=== PATIENT | female | born 1940 | race Caucasian/White ===

== ENCOUNTER 2016-11-27 16:04 | Observation (INO) | payer OTHER ==
[2016-11-27] VITALS (7 sets, daily range): BP systolic 147–177; BP diastolic 70–78; PULSE 53–76; RESP 18–20; TEMP 98–98.1; O2SAT 95–98
[~2016-11-27 16:04] MED LIST: ASPI81TA82 PO; B12-1CHW CHEW; FENO50TA PO; FLUO0.012 TOP; GLIM1 PO; HYDR-2768 PO; LEVO75TA3 PO; LOVA40TA PO; METF-324 PO; METO25 PO; NORV5TAB PO; POTA-243 PO; PROT40TA PO; TAB-TAB PO; TELM40 PO; TIMO0.5S6 LEFT EYE; VERA240CR PO
[2016-11-27] MEDS ORDERED: NITROGLYCERIN 2% OINT 1 GM PACKET TOP ONE (16:30)
[2016-11-27] MEDS ORDERED: ASPIRIN 325 MG TAB PO ONE (16:30)
[2016-11-27] MEDS ORDERED: SODIUM CHLORIDE 0.9% FLUSH 5 ML FLUSH IVF PRN (16:30)
--- NOTE | 2016-11-27 16:40 | PD ---
HPI Chief Complaint: Chest Pain Time Seen by Provider: 16:17 Travel History International Travel<30 days: No Contact w/Intl Traveler<30days: No Traveled to known affect area: No History of Present Illness HPI 76-year-old female with history of CAD and stents, multiple medical issues, presents to the ER today with substernal chest pains which she describes as a pressure-like 7 out of 10 pain which is constant in nature. She denies any nausea, shortness of breath, abdominal pains, or any other symptoms. Modifying Factors: None Associated Signs & Symptoms: Chest pains Risk Factors: CAD with stents PFSH Past Medical History Hx Anticoagulant Therapy: Yes (ASA) Arthritis: Yes Asthma: No Blood Disorders: No Anxiety: No Depression: Yes Heart Rhythm Problems: No Cancer: No Cardiac Catheterization: Yes (1 STENT) Cardiovascular Problems: Yes High Cholesterol: Yes Chest Pain: Yes Congestive Heart Failure: No COPD: No Diabetes: Yes Patient Takes Glucophage: Yes Diminished Hearing: Yes ([place]) Endocrine: Yes Gastrointestinal Disorders: Yes (GERD, HX ULCERS) GERD: Yes Glaucoma: Yes Genitourinary: No Hepatitis: No Hiatal Hernia: No Hypertension: Yes Immune Disorder: No Implanted Vascular Access Dvce: No Medical other: No Musculoskeletal: Yes (ARTHRITIS HANDS feet) Neurologic: No Psychiatric: No Reproductive: No Respiratory: Yes (C PAP TO SLEEP) Immunizations Current: Yes Myocardial Infarction: No Sleep Apnea: No Thyroid Disease: Yes (HYPOTHYROID) Ulcer: Yes (DECEMBER 2006) ?: Not Menopausal: Yes : 3 Para: 3 Past Surgical History Abdominal Surgery: Yes (BLEEDING ULCERS) AICD: No Appendectomy: No Body Medical Devices: CARDIAC STENT Cardiac Surgery: Yes (AAA STENTING, CAD WITH STENTS ) Cholecystectomy: No Ear Surgery: No Endocrine Surgery: No Eye Surgery: Yes (ALENA cataract ext) Genitourinary Surgery: Yes Gynecologic Surgery: Yes (hysterectomy) Hysterectomy: Yes Joint Replacement: No Neurologic Surgery: No Oral Surgery: Yes (TONSILLECTOMY) Pacemaker: No Thoracic Surgery: No Tonsillectomy: Yes Other Surgery: Yes Social History Alcohol Use: No Tobacco Use: No (quit 20 years ago) Substance Use: No Allergies-Medications (Allergen,Severity, Reaction): Coded Allergies: Clam (Verified Allergy, Severe, n/v, 06/08/16) Oyster (Verified Allergy, Severe, n/v, 06/08/16) Red Dyes - Various (Verified Allergy, Severe, hives and swelling, 06/08/16) Scallop (Verified Allergy, Severe, nausea and vomiting, 06/08/16) Uncoded Allergies: RED 40 DYE (Allergy, Severe, THROAT CLOSES, HIVES, 07/05/14) CLAMS/OYSTERS/SCALLOPS (Allergy, Intermediate, NAUSEA/VOMITTING, 07/05/14) Reported Meds & Prescriptions Reported Meds & Active Scripts Active Reported Verapamil SR (Verapamil HCl) 240 Mg Tab 240 Mg PO HS Timolol Opth Drops 0.5 % Soln 1 Drop LEFT EYE HS Micardis (Telmisartan) 40 Mg Tab 40 Mg PO BID Pantoprazole (Pantoprazole Sodium) 40 Mg Tab 40 Mg PO DAILY Amlodipine (Amlodipine Besylate) 5 Mg Tab 5 Mg PO DAILY Multi Vitamin (Multiple Vitamin) 1 Tab Tab 1 Tab PO DAILY Metoprolol Tartrate 25 Mg Tab 25 Mg PO HS [id number] (Methylcobalamin) 1 Mg Chew 1 Mg CHEW DAILY Metformin ER (Metformin HCl) 500 Mg Huang 500 Mg PO BIDPC With evening meal Lovastatin 40 Mg Tab 40 Mg PO HS Levothyroxine (Levothyroxine Sodium) 88 Mcg Tab 88 Mcg PO DAILY Hydrochlorothiazide 25 Mg Tab 25 Mg PO DAILY Fluocinolone Topical (Fluocinolone Acetonide) 0.01% Cream 1 Applic TOPICAL HS Fenofibrate 145 Mg Tab 145 Mg PO DAILY Aspir-81 (Aspirin) 81 Mg Tabdr 81 Mg PO DAILY Glimepiride 1 Mg Tab 1 Mg PO BIDAC Take with breakfast or first main meal Review of Systems Except as stated in HPI: all other systems reviewed are Neg Physical Exam Narrative GENERAL: Well-nourished, well-developed elderly white female patient in no acute distress. SKIN: Warm and dry. HEAD: Normocephalic. EYES: No scleral icterus. No injection or drainage. NECK: Supple, trachea midline. CARDIOVASCULAR: Regular rate and rhythm without murmurs, gallops, or rubs. Pulses are present and equal bilaterally. RESPIRATORY: Breath sounds equal bilaterally. No accessory muscle use. GASTROINTESTINAL: Abdomen soft, non-tender, nondistended. MUSCULOSKELETAL: No cyanosis, or edema. BACK: Nontender without obvious deformity. No CVA tenderness. Data Data Last Documented VS Vital Signs Date Time Temp Pulse Resp B/P Pulse Ox O2 Delivery O2 Flow Rate FiO2 11/27/16 17:35 66 18 155/71 98 Nasal Cannula 2 11/27/16 16:14 98.1 Orders Electrocardiogram (11/27/16 16:17) Basic Metabolic Panel (Bmp) (11/27/16 16:17) Ckmb (Isoenzyme) Profile (11/27/16 16:17) Complete Blood Count With Diff (11/27/16 16:17) Magnesium (Mg) (11/27/16 16:17) Prothrombin Time / Inr (Pt) (11/27/16 16:17) Act Partial Throm Time (Ptt) (11/27/16 16:17) Troponin I (11/27/16 16:17) Chest, Single Ap (11/27/16 16:17) Ecg Monitoring (11/27/16 16:17) Bilateral Bp Monitoring (11/27/16 16:17) Iv Access Insert/Monitor (11/27/16 16:17) Oximetry (11/27/16 16:17) Oxygen Administration (11/27/16 16:17) Aspirin (Aspirin) (11/27/16 16:30) Nitroglycerin 2% Oint (Nitroglycerin 2% (11/27/16 16:30) Sodium Chloride 0.9% Flush (Ns Flush) (11/27/16 16:30) CKMB (11/27/16 16:19) CKMB% (11/27/16 16:19) Consult Cardiology (11/27/16 ) Admit Order (Ed Use Only) (11/27/16 17:57) Labs Laboratory Tests Test 11/27/16 16:19 White Blood Count 9.3 TH/MM3 Red Blood Count 4.55 MIL/MM3 Hemoglobin 12.1 GM/DL Hematocrit 36.2 % Mean Corpuscular Volume 79.5 FL Mean Corpuscular Hemoglobin 26.5 PG Mean Corpuscular Hemoglobin 33.4 % Concent Red Cell Distribution Width 15.2 % Platelet Count 304 TH/MM3 Mean Platelet Volume 9.1 FL Neutrophils (%) (Auto) 53.5 % Lymphocytes (%) (Auto) 35.1 % Monocytes (%) (Auto) 8.5 % Eosinophils (%) (Auto) 2.3 % Basophils (%) (Auto) 0.6 % Neutrophils # (Auto) 5.0 TH/MM3 Lymphocytes # (Auto) 3.3 TH/MM3 Monocytes # (Auto) 0.8 TH/MM3 Eosinophils # (Auto) 0.2 TH/MM3 Basophils # (Auto) 0.1 TH/MM3 CBC Comment DIFF FINAL Differential Comment Prothrombin Time 11.3 SEC Prothromb Time International 1.0 RATIO Ratio Activated Partial 24.2 SEC Thromboplast Time Sodium Level 135 MEQ/L Potassium Level 3.7 MEQ/L Chloride Level 97 MEQ/L Carbon Dioxide Level 30.1 MEQ/L Anion Gap 8 MEQ/L Blood Urea Nitrogen 23 MG/DL Creatinine 1.16 MG/DL Estimat Glomerular Filtration 46 ML/MIN Rate Random Glucose 169 MG/DL Calcium Level 9.1 MG/DL Magnesium Level 1.7 MG/DL Total Creatine Kinase 108 U/L Creatine Kinase MB 1.7 NG/ML Troponin I LESS THAN 0.02 NG/ML MDM Medical Decision Making Medical Screen Exam Complete: Yes Emergency Medical Condition: Yes Medical Record Reviewed: Yes Interpretation(s) EKG shows NSR, no ST elevation or depression, and no arrhythmias. No significant T-wave inversions. Laboratory Tests Test 11/27/16 16:19 Mean Corpuscular Volume 79.5 FL (80.0-100.0) Mean Corpuscular Hemoglobin 26.5 PG (27.0-34.0) Monocytes (%) (Auto) 8.5 % (0.0-8.0) Activated Partial 24.2 SEC Thromboplast Time (24.3-30.1) Sodium Level 135 MEQ/L (136-145) Chloride Level 97 MEQ/L (98-107) Blood Urea Nitrogen 23 MG/DL (7-18) Creatinine 1.16 MG/DL (0.50-1.00) Estimat Glomerular Filtration 46 ML/MIN (>89) Rate Random Glucose 169 MG/DL (74-106) Troponin I LESS THAN 0.02 NG/ML (0.02-0.05) Last 24 hours Impressions Chest X-Ray 11/27/16 7667 Signed Impressions: Service Date/Time: Sunday, November 27, 2016 16:27 - CONCLUSION: 1. No acute cardiopulmonary findings. Russ Marrero MD Differential Diagnosis Chest painsACS versus costochondritis versus acute pulmonary processes Narrative Course EKG did not show any signs of acute ST-T changes. Cardiac enzymes are negative. Patient was given aspirin and nitroglycerin with some improvement in chest pain. Case was discussed with Dr. Romeo who would like the patient to be medically admitted for further evaluation and consult for him. Case was discussed with Dr. Malcolm for admission. Diagnosis Primary Impression: Chest pain Admitting Information Admitting Physician Requests: Admit Rakel Hull MD Nov 27, 2016 16:40
[2016-11-27 16:50] LABS: BASOPHIL # 0.1 TH/MM3 (0-0.2); BASOPHIL % 0.6 % (0.0-2.0); EOSINOPHIL # 0.2 TH/MM3 (0-0.4); EOSINOPHIL % 2.3 % (0.0-4.0); HEMATOCRIT 36.2 % (35.0-46.0); HEMO FLAGS DIFF FINAL; LYMPH % 35.1 % (9.0-44.0); LYMPHOCYTE # 3.3 TH/MM3 (1.0-4.8); MEAN CELL VOLUME 79.5 FL (80.0-100.0); MEAN CORPUSCULAR HEMOGLOBIN 26.5 PG (27.0-34.0); MEAN CORPUSCULAR HGB CONC 33.4 % (32.0-36.0); MONO % 8.5 % (0.0-8.0); NEUT % 53.5 % (16.0-70.0); PLATELET COUNT 304 TH/MM3 (150-450); RED BLOOD COUNT 4.55 MIL/MM3 (4.00-5.30); RED CELL DISTRIBUTION WIDTH 15.2 % (11.6-17.2); WHITE BLOOD COUNT 9.3 TH/MM3 (4.0-11.0)
[2016-11-27 17:00] LABS: APTT (PATIENT) 24.2 SEC (24.3-30.1); PROTHROMBIN TIME - PATIENT 11.3 SEC (9.8-11.6)
[2016-11-27] MEDS ORDERED: LEVO88TA2 PO (17:00)
[2016-11-27] MEDS ORDERED: FLUO0.013 TOPICAL (17:00)
[2016-11-27] MEDS ORDERED: LOVA40TA PO (17:00)
[2016-11-27] MEDS ORDERED: AMLO5TAB2 PO (17:00)
[2016-11-27] MEDS ORDERED: MULT-135 PO (17:00)
[2016-11-27] MEDS ORDERED: TELM40 PO (17:00)
[2016-11-27] MEDS ORDERED: ASPI81TA81 PO (17:00)
[2016-11-27] MEDS ORDERED: GLIM1TAB PO (17:00)
[2016-11-27] MEDS ORDERED: HYDR25TA5 PO (17:00)
[2016-11-27] MEDS ORDERED: B12-1CHW CHEW (17:00)
[2016-11-27] MEDS ORDERED: METO25TA3 PO (17:00)
[2016-11-27] MEDS ORDERED: METF500T4 PO (17:00)
[2016-11-27] MEDS ORDERED: FENO145T2 PO (17:00)
[2016-11-27] MEDS ORDERED: PANT40TA3 PO (17:00)
[2016-11-27] MEDS ORDERED: K-TA10TA PO (17:00)
[2016-11-27] MEDS ORDERED: TIMO0.5S30 LEFT EYE (17:01)
[2016-11-27] MEDS ORDERED: VERA240T16 PO (17:01)
[2016-11-27 17:11] LABS: ANION GAP 8 MEQ/L (5-15); BICARBONATE 30.1 MEQ/L (21.0-32.0); BLOOD UREA NITROGEN 23 MG/DL (7-18); CHLORIDE 97 MEQ/L (98-107); GLOMERULAR FILTRATION RATE 46 ML/MIN (>89); MAGNESIUM 1.7 MG/DL (1.5-2.5); POTASSIUM 3.7 MEQ/L (3.5-5.1); SODIUM (NA) 135 MEQ/L (136-145)
--- NOTE | 2016-11-27 17:15 | RADRPT ---
EXAM DATE/TIME: 11/27/2016 16:27 [facility] COMPARISON: CHEST SINGLE AP, October 04, 2015, 21:41. INDICATIONS : Chest pain and pressure. MEDICAL HISTORY : Hypertension. SURGICAL HISTORY : Carotid stent. ENCOUNTER: Initial ACUITY: 1 day PAIN SCORE: 8/10 LOCATION: chest FINDINGS: A single view of the chest demonstrates the lungs to be symmetrically aerated without evidence of mas s, infiltrate or effusion. The cardiomediastinal contours are unremarkable. Osseous structures are intact. CONCLUSION: 1. No acute cardiopulmonary findings. Russ Marrero MD on November 27, 2016 at 17:12 Board Certified Radiologist. This report was verified electronically.
[2016-11-27 17:16] LABS: CREATINE KINASE 108 U/L (26-192)
[2016-11-27 17:28] LABS: CKMB 1.7 NG/ML (0.5-3.6)
[2016-11-27] MEDS ORDERED: SODIUM CHLORIDE 0.9% FLUSH 5 ML FLUSH FLUSH PRN (18:00)
[2016-11-27] MEDS ORDERED: NALOXONE HCL 0.4 MG/ML AMP IV PRN (18:00)
[2016-11-27] MEDS ORDERED: DEXTROSE 50% IN WATER 50 ML VIAL(D50) IV PUSH PRN (18:30)
[2016-11-27] MEDS ORDERED: GLUCAGON 1 MG/ML VIAL OTHER PRN (18:30)
--- NOTE | 2016-11-27 18:35 | HHI.HP ---
[facility] Service [facility] Primary [facility] Physician Kem Estrada, PhD, MD Admission Diagnosis chest pain Diagnoses: Chief Complaint: Chest pain Travel History International Travel<30 Days: No Contact w/Intl Traveler <30 Da: No Traveled to Known Affected Are: No History of Present Illness 76-year-old female with a past history of CAD, PAD, HTN, HLD, DM, GERD, hypothyroidism who presented for chest pain. The patient states that she is walking to take out the trash at work today around 4 PM when she began experiencing chest pain. She describes the pain as a heavy weight in the middle of her chest. The pain does not radiate. The pain is intermittent and lasts for seconds to a minute. She states the pain is exacerbated whenever she moves. She denies any pain with breathing or taking a deep breath. She denies any associated shortness of breath or nausea. She states that currently she feels drunk, like she wants to go to sleep. She denies any nausea, vomiting, fever, chills, recent illness. She does state that for the past few weeks she' s been having right upper thigh soreness whenever she bears weight. She states that she has a history of a partially excluded artery in that leg. She denies any lower extremity swelling. She denies any weakness, vision changes, headache. Review of Systems Other 10 point review of systems performed and was negative except as stated in the history of present illness Past Family Social History Past Medical History Coronary artery disease Hypertension Hyperlipidemia Diabetes mellitus Hypothyroidism GERD Peripheral arterial disease Past Surgical History AAA stent Catheterization with coronary stent placement 2007 Hysterectomy Tonsillectomy Cataract surgery Knee surgery Pilonidal cyst removal Reported Medications Verapamil SR (Verapamil HCl) 240 Mg Tab 240 Mg PO HS Timolol Opth Drops 0.5 % Soln 1 Drop LEFT EYE HS Micardis (Telmisartan) 40 Mg Tab 40 Mg PO BID Pantoprazole (Pantoprazole Sodium) 40 Mg Tab 40 Mg PO DAILY Amlodipine (Amlodipine Besylate) 5 Mg Tab 5 Mg PO DAILY Multi Vitamin (Multiple Vitamin) 1 Tab Tab 1 Tab PO DAILY Metoprolol Tartrate 25 Mg Tab 25 Mg PO HS [id number] (Methylcobalamin) 1 Mg Chew 1 Mg CHEW DAILY Metformin ER (Metformin HCl) 500 Mg Huang 500 Mg PO BIDPC With evening meal Lovastatin 40 Mg Tab 40 Mg PO HS Levothyroxine (Levothyroxine Sodium) 88 Mcg Tab 88 Mcg PO DAILY Hydrochlorothiazide 25 Mg Tab 25 Mg PO DAILY Fluocinolone Topical (Fluocinolone Acetonide) 0.01% Cream 1 Applic TOPICAL HS Fenofibrate 145 Mg Tab 145 Mg PO DAILY Aspir-81 (Aspirin) 81 Mg Tabdr 81 Mg PO DAILY Glimepiride 1 Mg Tab 1 Mg PO BIDAC Take with breakfast or first main meal Allergies: Coded Allergies: Clam (Verified Allergy, Severe, n/v, 06/08/16) Oyster (Verified Allergy, Severe, n/v, 06/08/16) Red Dyes - Various (Verified Allergy, Severe, hives and swelling, 06/08/16) Scallop (Verified Allergy, Severe, nausea and vomiting, 06/08/16) Uncoded Allergies: RED 40 DYE (Allergy, Severe, THROAT CLOSES, HIVES, 07/05/14) CLAMS/OYSTERS/SCALLOPS (Allergy, Intermediate, NAUSEA/VOMITTING, 07/05/14) Active Ordered Medications Current Medications Medications (Trade) Dose Ordered Sig/Vilma Route Start Time Stop Time Status Last Admin (NS Flush) 2 ml UNSCH PRN IVF 11/27/16 16:30 (NS Flush) 2 ml UNSCH PRN FLUSH 11/27/16 18:00 UNV (NS Flush) 2 ml BID FLUSH 11/27/16 21:00 UNV (Narcan Inj) 0.4 mg UNSCH PRN IV 11/27/16 18:00 UNV Family History Father and mother both had heart disease, mother at 76 and father at 83 Social History Past tobacco use, quit 23 years ago, but smoked 3 packs per day for 20 years Denies alcohol or drug use 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 In no acute distress. SKIN: Warm and dry. No lesions noted. HEENT: Normocephalic. Pupils equal and round. Mucous membranes pink and moist. CARDIOVASCULAR: Regular rate and rhythm. No murmur appreciated. No chest wall pain with palpation. RESPIRATORY: No accessory muscle use. Clear to auscultation. Breath sounds equal bilaterally. GASTROINTESTINAL: Abdomen soft, non-tender, nondistended. Bowel sounds x4. MUSCULOSKELETAL: No obvious deformities. No clubbing or cyanosis. No edema. No calf pain. NEUROLOGICAL: Awake and alert. No focal neurological deficits. Moves upper and lower extremities spontaneously. Normal speech. Strength 5/5. PSYCHIATRIC: Appropriate mood and affect; insight and judgment normal. Laboratory Laboratory Tests Test 11/27/16 16:19 White Blood Count 9.3 Red Blood Count 4.55 Hemoglobin 12.1 Hematocrit 36.2 Mean Corpuscular Volume 79.5 Mean Corpuscular Hemoglobin 26.5 Mean Corpuscular Hemoglobin 33.4 Concent Red Cell Distribution Width 15.2 Platelet Count 304 Mean Platelet Volume 9.1 Neutrophils (%) (Auto) 53.5 Lymphocytes (%) (Auto) 35.1 Monocytes (%) (Auto) 8.5 Eosinophils (%) (Auto) 2.3 Basophils (%) (Auto) 0.6 Neutrophils # (Auto) 5.0 Lymphocytes # (Auto) 3.3 Monocytes # (Auto) 0.8 Eosinophils # (Auto) 0.2 Basophils # (Auto) 0.1 CBC Comment DIFF FINAL Differential Comment Prothrombin Time 11.3 Prothromb Time International 1.0 Ratio Activated Partial 24.2 Thromboplast Time Sodium Level 135 Potassium Level 3.7 Chloride Level 97 Carbon Dioxide Level 30.1 Anion Gap 8 Blood Urea Nitrogen 23 Creatinine 1.16 Estimat Glomerular Filtration 46 Rate Random Glucose 169 Calcium Level 9.1 Magnesium Level 1.7 Total Creatine Kinase 108 Creatine Kinase MB 1.7 Troponin I LESS THAN 0.02 Result Diagram: 11/27/16 1619 11/27/16 1619 Imaging Last Impressions Chest X-Ray 11/27/16 1617 Signed Impressions: Service Date/Time: Sunday, November 27, 2016 16:27 - CONCLUSION: 1. No acute cardiopulmonary findings. Russ Marrero MD Assessment and Plan Assessment and Plan 76-year-old female with a past history of CAD, PAD, HTN, HLD, DM, GERD, hypothyroidism who presented for chest pain Chest pain with history of CAD: Troponin within normal limits. EKG personally reviewed with NSR, no change from previous. Rule out ACS per protocol with serial enzymes and EKGs. Patient's emblem fuser tender, Dr. Romeo, was consulted from the ED. Continue aspirin, statin, metoprolol. Nitropaste. RLE pain: Chronic, likely secondary to PAD. However, with chest pain as above, we'll check ultrasound Doppler for DVT. Diabetes mellitus: Hold home metformin. Continue home glipizide. Coverage with SSI with Accu-Cheks. Hypertension: Not well controlled currently. Resume home amlodipine, metoprolol , losartan, verapamil. Clonidine as needed. Mild [place]: Creatinine 1.16, previously 0.89, on 08/03/16. Hold HCTZ. Follow-up BMP. Hyperlipidemia: Continue pravastatin and fenofibrate. Other chronic medical conditions including GERD, hypothyroidism, glaucoma: Stable at this time and will continue home medications as indicated. DVT prophylaxis: SCDs Written by Ace Aparicio, acting as scribe for Dr. Malcolm on 11/27/16 at 18:14. Code Status Full code Discussed Condition With Patient with daughter and friend at bedside Attending Statement The documentation accurately reflects the work performed [id number] by me on at 18:14. Ace Aparicio Nov 27, 2016 18:35 Vladimir Malcolm MD Nov 28, 2016 15:56
[2016-11-27] MEDS ORDERED: cloNIDine HCL 0.1 MG TAB PO PRN (18:45)
--- NOTE | 2016-11-27 19:45 | RADRPT ---
EXAM DATE/TIME: 11/27/2016 18:59 [facility] COMPARISON: No previous studies available for comparison. INDICATIONS : Bilateral leg pain. MEDICAL HISTORY : Gastroesophageal reflux disease. Hypothyroidism. Hypercholesterolemia. Glaucoma. Hearing loss. Vertig o. Coronary artery disease. Anticoagulant therapy, Aspirin. Hypertension. Ulcers. . Arthriti s. Diabetes. Depression. SURGICAL HISTORY : Hysterectomy.Tonsillectomy. Abdominal aortic aneurysm repair.Left knee surgery. Bilateral carpal tunn el surgery. Bilateral cataract removal. Coronary artery stent. Bleeding ulcer surgery. ENCOUNTER: Initial ACUITY: 1 day PAIN SCORE: 6/10 LOCATION: Bilateral legs. TECHNIQUE: Venous ultrasound of the left and right leg was performed from the inguinal ligament to the proximal calf. Real-time, color Doppler and spectral tracing, compression and augmentation techniques were us ed. FINDINGS: RIGHT LEG: There is normal compressibility of the deep venous system from the inguinal region to the proximal ca lf. No echogenic clot is seen in the lumen of the common femoral, femoral, popliteal, and posterior tibial veins. There is a normal response of the venous system to proximal and distal augmentation an d respiration. LEFT LEG: There is normal compressibility of the deep venous system from the inguinal region to the proximal ca lf. No echogenic clot is seen in the lumen of the common femoral, femoral, popliteal, and posterior tibial veins. There is a normal response of the venous system to proximal and distal augmentation an d respiration. CONCLUSION: Normal examination. Seamus Mckeon MD on November 27, 2016 at 19:43 Board Certified Radiologist. This report was verified electronically.
[2016-11-27] MEDS: POTASSIUM CHLORIDE 10 MEQ CONTROLLED RELEASE TAB PO SCH (20:33)
[2016-11-27] MEDS: LOSARTAN 50 MG TAB PO SCH (20:34)
[2016-11-27] MEDS: INSULIN ASPART SUPPLEMENTAL SCALE SQ SCH (20:34)
[2016-11-27] MEDS ORDERED: VERAPAMIL HCL 240 MG SUSTAINED RELEASE TAB PO SCH (21:00)
[2016-11-27] MEDS ORDERED: METOPROLOL TARTRATE 25 MG TAB PO SCH (21:00)
[2016-11-27] MEDS ORDERED: TIMOLOL MALEATE 0.5% OPHT SOLN 5 ML BTL LEFT EYE SCH (21:00)
[2016-11-27] MEDS ORDERED: PRAVASTATIN SOD 40 MG TAB PO SCH (21:00)
[2016-11-27] MEDS: SODIUM CHLORIDE 0.9% FLUSH 5 ML FLUSH FLUSH SCH (21:38)
[2016-11-27] MEDS ORDERED: ONDANSETRON HCL 4 MG/2 ML VIAL IV PUSH PRN (22:45)
[2016-11-27] MEDS: NITROGLYCERIN 2% OINT 1 GM PACKET TOPICAL SCH (23:05)
[2016-11-28] VITALS: BP 107/55; PULSE 50; PULSE 52; RESP 20; TEMP 97.6; O2SAT 95
[2016-11-28 00:09] VITALS: PULSE 49
[2016-11-28 03:56] VITALS: BP 109/55; PULSE 50; RESP 20; TEMP 98.3; O2SAT 97
[2016-11-28] MEDS ORDERED: LEVOTHYROXINE SODIUM 88 MCG TAB PO SCH (06:00)
[2016-11-28] MEDS: INSULIN ASPART SUPPLEMENTAL SCALE SQ SCH ×2 (06:29→11:00)
[2016-11-28] MEDS: NITROGLYCERIN 2% OINT 1 GM PACKET TOPICAL SCH ×2 (06:36→12:48)
[2016-11-28 06:52] LABS: AUTOMATED NEUTROPHIL # 4.1 TH/MM3 (1.8-7.7); BASOPHIL % 0.5 % (0.0-2.0); EOSINOPHIL # 0.2 TH/MM3 (0-0.4); EOSINOPHIL % 2.9 % (0.0-4.0); HEMATOCRIT 34.8 % (35.0-46.0); HEMO FLAGS DIFF FINAL; LYMPH % 32.7 % (9.0-44.0); LYMPHOCYTE # 2.4 TH/MM3 (1.0-4.8); MEAN CELL VOLUME 79.5 FL (80.0-100.0); MEAN CORPUSCULAR HEMOGLOBIN 26.2 PG (27.0-34.0); MEAN CORPUSCULAR HGB CONC 32.9 % (32.0-36.0); MONO % 9.7 % (0.0-8.0); NEUT % 54.2 % (16.0-70.0); PLATELET COUNT 267 TH/MM3 (150-450); RED BLOOD COUNT 4.37 MIL/MM3 (4.00-5.30); RED CELL DISTRIBUTION WIDTH 14.9 % (11.6-17.2); WHITE BLOOD COUNT 7.5 TH/MM3 (4.0-11.0)
[2016-11-28 07:00] VITALS: BP 126/65; PULSE 57; RESP 18; TEMP 97.1; O2SAT 96
[2016-11-28] MEDS ORDERED: GLIMEPIRIDE 1 MG TAB PO SCH (07:00)
[2016-11-28 07:03] LABS: BICARBONATE 28.4 MEQ/L (21.0-32.0); POTASSIUM 3.6 MEQ/L (3.5-5.1)
[2016-11-28 08:00] VITALS: PULSE 58
[2016-11-28] MEDS: POTASSIUM CHLORIDE 10 MEQ CONTROLLED RELEASE TAB PO SCH (08:35)
[2016-11-28] MEDS: LOSARTAN 50 MG TAB PO SCH (08:35)
[2016-11-28] MEDS: SODIUM CHLORIDE 0.9% FLUSH 5 ML FLUSH FLUSH SCH (08:36)
[2016-11-28] MEDS ORDERED: PANTOPRAZOLE SOD 40 MG DELAYED RELEASE TAB PO SCH (09:00)
[2016-11-28] MEDS ORDERED: ASPIRIN EC 81 MG TABEC PO SCH (09:00)
[2016-11-28] MEDS ORDERED: amLODIPine BESYLATE 5 MG TAB PO SCH (09:00)
[2016-11-28] MEDS ORDERED: FENOFIBRATE 145 MG TAB PO SCH (09:00)
--- NOTE | 2016-11-28 12:26 | EKG ---
Date Performed: 11/28/2016 Time Performed: 00:04:19 PTAGE: 76 years EKG: SINUS BRADYCARDIA BORDERLINE ECG PREVIOUS TRACING : 11/27/2016 16.11 Compared to prior tracing no significant change DOCTOR: Adonay Ramírez Interpretating Date/Time 11/28/2016 12:24:28
--- NOTE | 2016-11-28 12:26 | EKG ---
Date Performed: 11/28/2016 Time Performed: 06:09:37 PTAGE: 76 years EKG: SINUS BRADYCARDIA BORDERLINE ECG PREVIOUS TRACING : 11/28/2016 00.04 Compared to prior tracing no significant change DOCTOR: Adonay Ramírez Interpretating Date/Time 11/28/2016 12:24:19
--- NOTE | 2016-11-28 12:27 | EKG ---
Date Performed: 11/27/2016 Time Performed: 16:11:59 PTAGE: 76 years EKG: Sinus rhythm NORMAL ECG INTERPRETATION BASED ON A DEFAULT AGE OF 40 YEARS PREVIOUS TRACING : 01/30/2016 22.15 Compared to prior tracing no significant change DOCTOR: Adonay Ramírez Interpretating Date/Time 11/28/2016 12:24:37
[2016-11-28 12:30] VITALS: BP 142/81; PULSE 62; RESP 18; TEMP 98.2; O2SAT 94
--- NOTE | 2016-11-28 12:54 | MB ---
cc: FRITZ BARRIOS M.D. DATE OF CONSULTATION: 11/28/2016 REASON FOR CONSULTATION Chest pain. HISTORY OF PRESENT ILLNESS This is a 76-year-old female who is well-known to me. She has a past medical history of type 2 diabetes mellitus, hypertension, gastroesophageal reflux disease and peripheral vascular disease. The patient presented to [facility] with a complaint of chest pain which felt like a pressure while she was getting her mail yesterday. The initial workup in the emergency room included a 12-lead EKG which was essentially normal, three sets of cardiac enzymes came back normal. Currently the patient is chest pain free. She denies otherwise PND, orthopnea, lower extremity edema or recent weight gain. SOCIAL HISTORY Nonsmoker, nondrinker. FAMILY HISTORY Noncontributory. REVIEW OF SYSTEMS HEENT: No lightheadedness or dizziness. CARDIOVASCULAR: No documented stent in the past. PULMONARY: No asthma or COPD. GASTROINTESTINAL: Positive for gastroesophageal reflux disease. No GI bleed. The remainder of her review of systems is within normal limits. PHYSICAL EXAMINATION VITAL SIGNS: Physical examination showed blood pressure of 140/70 with a heart rate of 70, respiratory rate of 12, the patient is afebrile. NECK: Supple with no jugular venous distension. CHEST: Clear to auscultation and percussion. HEART: S1 normal in intensity. S2 single. Regular rate and rhythm. No S3 appreciated. ABDOMEN: Benign. EXTREMITIES: No edema, clubbing or cyanosis. IMPRESSION 1. Chest pain of uncertain etiology. 2. History of hypertension. 3. History of peripheral vascular disease. 4. History of type 2 diabetes mellitus. RECOMMENDATIONS The patient has been ruled out for myocardial infarction with serial CPKs and EKGs. She is chest pain free now. She is cleared from the cardiovascular standpoint to be discharged home. I will schedule her for an outpatient ischemic evaluation early next week. Thank you for this consultation. Fritz Barrios MD /RL /10:14 AM /12:40 PM
--- NOTE | 2016-11-28 16:04 | HHI.PR ---
Subjective Remarks Patient seen today around noon. She says she is feeling well. Denies any chest pain. Denies any shortness of breath. She says she feels well, and would like to go home. Cardiology has seen the patient, cleared for discharge with follow-up for stress test on Wednesday. Objective Vital Signs Date Time Temp Pulse Resp B/P Pulse Ox O2 Delivery O2 Flow Rate FiO2 11/28/16 12:30 98.2 62 18 142/81 94 11/28/16 08:00 58 11/28/16 07:00 97.1 57 18 126/65 96 11/28/16 03:56 98.3 50 20 109/55 97 11/28/16 00:09 49 11/28/16 00:00 97.6 52 20 107/55 95 11/27/16 21:50 98.0 53 20 169/78 98 11/27/16 18:46 76 18 147/70 97 Nasal Cannula 2 11/27/16 17:35 66 18 155/71 98 Nasal Cannula 2 11/27/16 16:26 66 20 169/77 98 Nasal Cannula 2 161/76 11/27/16 16:25 98 Nasal Cannula 2 11/27/16 16:23 20 95 Room Air 11/27/16 16:14 98.1 68 20 177/77 98 Room Air 11/27/16 16:14 68 20 96 Room Air 11/27/16 16:10 98.1 65 18 97 Result Diagram: 11/28/16 0500 11/28/16 0500 Objective Remarks GENERAL: Patient sitting up in bed. Appears comfortable. Alert and oriented 3. SKIN: Warm and dry. HEAD: Normocephalic. EYES: No scleral icterus. No injection or drainage. NECK: Supple, trachea midline. No JVD. CARDIOVASCULAR: Regular rate and rhythm without murmurs, gallops, or rubs. RESPIRATORY: Breath sounds equal bilaterally. No accessory muscle use. GASTROINTESTINAL: Abdomen soft, non-tender, nondistended. MUSCULOSKELETAL: No cyanosis, or edema. BACK: Nontender without obvious deformity. No CVA tenderness. A/P Assessment and Plan 76-year-old female with a past history of CAD, PAD, HTN, HLD, DM, GERD, hypothyroidism who presented for chest pain Chest pain with history of CAD: Troponin within normal limits. EKG personally reviewed with NSR, no change from previous. Rule out ACS per protocol with serial enzymes and EKGs. Patient's psychological assistant, Dr. Romeo, was consulted from the ED. Continue aspirin, statin, metoprolol. = 11/28. Chest pain has resolved. Appreciate cardiology assistance. Cleared for discharge. Follow-up with cardiology on Wednesday for stress test. //RLE pain: Chronic, likely secondary to PAD. However, with chest pain as above Ultrasound Doppler negative for DVT.-Vital signs are stable. Heart rate bradycardic. No suspicion of pulmonary embolism. //Diabetes mellitus: -Coverage with Accu-Cheks and sliding scale insulin here. Continue home meds at discharge. Hypertension: Likely elevated on admission secondary to stress. Currently well controlled. Continue home medications. Mild [place]: Creatinine 1.16, previously 0.89, on 08/03/16. Hold HCTZ. Follow-up creatinine normalized.. Hyperlipidemia: Continue pravastatin and fenofibrate. Other chronic medical conditions including GERD, hypothyroidism, glaucoma: Stable at this time and will continue home medications as indicated. DVT prophylaxis: SCDs Discharge Planning Discharge home in good condition Heart healthy, diabetic diet Activity ad cam., avoid strenuous exercise or stressful situations Please see discharge medication reconciliation for medication list Follow-up with cardiology on Wednesday. Vladimir Malcolm MD Nov 28, 2016 16:04
[2017-02-24] MEDS ORDERED: BETH25TA2 PO (09:55)
== END 2016-11-28 14:50 | disposition home or self-care (01) ==
LOC: NEPC 16:04 → NEDA 17:58 → NEPGCP 21:45
PROVIDERS: ADMIT Internal Medicine; ATTEND Internal Medicine
DX: R07.89 Other chest pain (principal); I25.10 Atherosclerotic heart disease of native coronary artery without angina pectoris; I10 Essential (primary) hypertension; I73.9 Peripheral vascular disease, unspecified; E78.5 Hyperlipidemia, unspecified; K21.9 Gastro-esophageal reflux disease without esophagitis; E03.9 Hypothyroidism, unspecified; E11.9 Type 2 diabetes mellitus without complications; E78.00 Pure hypercholesterolemia, unspecified; H40.9 Unspecified glaucoma; H91.90 Unspecified hearing loss, unspecified ear; M19.041 Primary osteoarthritis, right hand; M19.042 Primary osteoarthritis, left hand; Z86.79 Personal history of other diseases of the circulatory system; Z87.891 Personal history of nicotine dependence; Z95.5 Presence of coronary angioplasty implant and graft; Z79.84 Long term (current) use of oral hypoglycemic drugs
CPT/HCPCS: 71010; 80048; 82550; 82552; 82948; 83735; 84484; 85025; 85610; 85730; 93005; 93970; 99285; G0378; J1815; J2405

== ENCOUNTER → 2016-12-08 | Outpatient (CLI) | payer OTHER ==
[~2016-12-08] MED LIST changes: +AMLO5TAB2 PO; +ASPI81TA81 PO; -ASPI81TA82 PO; +BETH25TA2 PO; +FENO145T2 PO; -FENO50TA PO; -FLUO0.012 TOP; +FLUO0.013 TOPICAL; -GLIM1 PO; +GLIM1TAB PO; -HYDR-2768 PO; +HYDR25TA5 PO; +K-TA10TA PO; -LEVO75TA3 PO; +LEVO88TA2 PO; -METF-324 PO; +METF500T4 PO; -METO25 PO; +METO25TA3 PO; +MULT-135 PO; -NORV5TAB PO; +PANT40TA3 PO; -POTA-243 PO; -PROT40TA PO; -TAB-TAB PO; +TIMO0.5S30 LEFT EYE; -TIMO0.5S6 LEFT EYE; -VERA240CR PO; +VERA240T16 PO
[2016-12-08 09:43] LABS: ALKALINE PHOSPHATASE 49 U/L (45-117); ALT (GPT) 21 U/L (10-53); ANION GAP 7 MEQ/L (5-15); AST (GOT) 18 U/L (15-37); BLOOD UREA NITROGEN 22 MG/DL (7-18); CHLORIDE 102 MEQ/L (98-107); GLOMERULAR FILTRATION RATE 51 ML/MIN (>89); GLUCOSE,FASTING 143 MG/DL (74-99); HDL CHOLESTEROL 45.2 MG/DL (40.0-60.0); LDL CHOLESTEROL 70 MG/DL (0-99); POTASSIUM 4.1 MEQ/L (3.5-5.1); SODIUM (NA) 139 MEQ/L (136-145); TOTAL BILIRUBIN ADULT 0.4 MG/DL (0.2-1.0)
[2016-12-08 10:41] LABS: HEMOGLOBIN A1a 1.5 %; HEMOGLOBIN A1b 2.2 %; HEMOGLOBIN Ao 82.6 %; HEMOGLOBIN LA1C 2.4 %; HEMOGLOBIN P3 4.4 %
== END ==
LOC: PLAB 07:00
PROVIDERS: ATTEND Family Medicine
DX: E11.29 Type 2 diabetes mellitus with other diabetic kidney complication (principal)
CPT/HCPCS: 80053; 80061; 83036

== ENCOUNTER → 2017-02-24 | Outpatient (CLI) | payer OTHER ==
[~2017-02-24] VITALS: Ht 162.6 cm; Wt 79.4 kg
[~2017-02-24] MED LIST changes: +CHLORHEXIDINE GLUCONATE 2 % 1 PACK (2 CLOTHS) TOPICAL PRN; +INSULIN HUMAN REGULAR 1,000 UNITS/10 ML VIAL SQ PRN; +LACTATED RINGER'S 1000 ML IV PRN; +METOPROLOL TARTRATE 25 MG TAB PO PRN; +POVIDONE IODINE 5% (ANTISEPSIS KIT) 4 APPLICATIONS EACH NARE PRN; +PROPOFOL 200 MG/20 ML AMP IV ONE; +SODIUM CHLORID 0.9% 500 ML IV PRN
[2017-02-24 09:15] VITALS: BP 143/67; PULSE 56; RESP 16; TEMP 98.3; O2SAT 95
[2017-02-24 11:44] VITALS: BP 127/66; PULSE 57; RESP 16; O2SAT 93
== END ==
LOC: HEND 09:06
DX: K22.10 Ulcer of esophagus without bleeding (principal); R12 Heartburn
CPT/HCPCS: 00740; 43239; 88305; 88312; J7120

== ENCOUNTER → 2017-05-03 | Outpatient (CLI) | payer OTHER ==
[~2017-05-03] MED LIST changes: -CHLORHEXIDINE GLUCONATE 2 % 1 PACK (2 CLOTHS) TOPICAL PRN; -FENO145T2 PO; -INSULIN HUMAN REGULAR 1,000 UNITS/10 ML VIAL SQ PRN; -LACTATED RINGER'S 1000 ML IV PRN; -METOPROLOL TARTRATE 25 MG TAB PO PRN; -POVIDONE IODINE 5% (ANTISEPSIS KIT) 4 APPLICATIONS EACH NARE PRN; -PROPOFOL 200 MG/20 ML AMP IV ONE; -SODIUM CHLORID 0.9% 500 ML IV PRN
[2017-05-03 10:17] LABS: ANION GAP 7 MEQ/L (5-15); AST (GOT) 15 U/L (15-37); BICARBONATE 32.5 MEQ/L (21.0-32.0); BLOOD UREA NITROGEN 22 MG/DL (7-18); CHLORIDE 101 MEQ/L (98-107); GLOMERULAR FILTRATION RATE 74 ML/MIN (>89); GLUCOSE,FASTING 141 MG/DL (74-99); SODIUM (NA) 140 MEQ/L (136-145)
[2017-05-03 10:26] LABS: MICRO ALBUMIN RANDOM URINE RAW 20.4 MG/L (0.0-30.0)
[2017-05-03 10:27] LABS: ALKALINE PHOSPHATASE 91 U/L (45-117); ALT (GPT) 24 U/L (10-53); HDL CHOLESTEROL 35.1 MG/DL (40.0-60.0); LDL CHOLESTEROL 56 MG/DL (0-99); TOTAL BILIRUBIN ADULT 0.4 MG/DL (0.2-1.0)
[2017-05-03 17:25] LABS: HEMOGLOBIN A1a 1.3 %; HEMOGLOBIN A1b 2.3 %; HEMOGLOBIN Ao 81.6 %; HEMOGLOBIN LA1C 2.4 %; HEMOGLOBIN P3 4.7 %
== END ==
LOC: PLAB 07:52
PROVIDERS: ATTEND Family Medicine
DX: E11.43 Type 2 diabetes mellitus with diabetic autonomic (poly)neuropathy (principal); E78.5 Hyperlipidemia, unspecified; E03.9 Hypothyroidism, unspecified
CPT/HCPCS: 80053; 80061; 82043; 83036; 84443

== ENCOUNTER 2017-07-29 19:10 | Emergency (ER) | payer OTHER ==
[~2017-07-29] VITALS: Ht 162.6 cm; Wt 81.0 kg
[2017-07-29 19:13] VITALS: BP 159/75; PULSE 75; RESP 15; TEMP 98.4; O2SAT 98
== END 2017-07-29 20:44 | disposition left against medical advice (07) ==
LOC: NED 19:10
DX: Z53.21 Procedure and treatment not carried out due to patient leaving prior to being seen by health care provider (principal)
CPT/HCPCS: 99281

== ENCOUNTER → 2017-08-02 | Outpatient (CLI) | payer OTHER ==
[2017-08-02 12:49] LABS: AUTOMATED NEUTROPHIL # 7.7 TH/MM3 (1.8-7.7); BASOPHIL # 0.1 TH/MM3 (0-0.2); BASOPHIL % 0.5 % (0.0-2.0); EOSINOPHIL # 0.1 TH/MM3 (0-0.4); EOSINOPHIL % 1.2 % (0.0-4.0); HEMATOCRIT 37.3 % (35.0-46.0); LYMPH % 23.4 % (9.0-44.0); LYMPHOCYTE # 2.6 TH/MM3 (1.0-4.8); MEAN CELL VOLUME 76.6 FL (80.0-100.0); MEAN CORPUSCULAR HEMOGLOBIN 24.8 PG (27.0-34.0); MEAN CORPUSCULAR HGB CONC 32.3 % (32.0-36.0); MONO % 7.5 % (0.0-8.0); NEUT % 67.4 % (16.0-70.0); PLATELET COUNT 252 TH/MM3 (150-450); RED BLOOD COUNT 4.88 MIL/MM3 (4.00-5.30); RED CELL DISTRIBUTION WIDTH 15.2 % (11.6-17.2); WHITE BLOOD COUNT 11.3 TH/MM3 (4.0-11.0)
[2017-08-02 12:51] LABS: HEMO FLAGS AUTO DIFF
[2017-08-02 13:00] LABS: POTASSIUM 4.1 MEQ/L (3.5-5.1)
[2017-08-02 13:09] LABS: OVALOCYTES 2+ (NORMAL); PLATELET ESTIMATE SMEAR NORMAL (NORMAL); PLATELET MORPHOLOGY NORMAL (NORMAL); SCAN/DIFF AUTO DIFF CONFIRMED
== END ==
LOC: PLAB 12:27
PROVIDERS: ATTEND Family Medicine
DX: K92.1 Melena (principal)
CPT/HCPCS: 80048; 85025

== ENCOUNTER → 2017-09-09 | Outpatient (CLI) | payer OTHER ==
[~2017-09-09] MED LIST changes: +CARA1TAB6 PO; +LEVO100T5 PO; +MULT-65 PO; +VERA1TAB18 PO; -VERA240T16 PO; +VITA10002 PO
[2017-09-09 10:18] LABS: ALBUMIN 3.5 GM/DL (3.4-5.0); AST (GOT) 18 U/L (15-37); BICARBONATE 29.4 MEQ/L (21.0-32.0); BLOOD UREA NITROGEN 19 MG/DL (7-18); CALCIUM 8.8 MG/DL (8.5-10.1); CHLORIDE 104 MEQ/L (98-107); CREATININE 0.76 MG/DL (0.50-1.00); GLOMERULAR FILTRATION RATE 74 ML/MIN (>89); GLUCOSE,FASTING 145 MG/DL (74-99); SODIUM (NA) 141 MEQ/L (136-145)
[2017-09-09 10:23] LABS: ALKALINE PHOSPHATASE 95 U/L (45-117); ALT (GPT) 24 U/L (10-53); TOTAL BILIRUBIN ADULT 0.3 MG/DL (0.2-1.0); TOTAL PROTEIN 7.3 GM/DL (6.4-8.2)
== END ==
LOC: PLAB 07:07
PROVIDERS: ATTEND Family Medicine
DX: Z00.00 Encounter for general adult medical examination without abnormal findings (principal)
CPT/HCPCS: 36415; 80053

== ENCOUNTER → 2017-10-11 | Outpatient (CLI) | payer OTHER ==
[2017-10-11 09:15] LABS: AUTOMATED NEUTROPHIL # 6.4 TH/MM3 (1.8-7.7); BASOPHIL # 0.1 TH/MM3 (0-0.2); BASOPHIL % 0.5 % (0.0-2.0); EOSINOPHIL # 0.4 TH/MM3 (0-0.4); EOSINOPHIL % 4.3 % (0.0-4.0); HEMO FLAGS DIFF FINAL; LYMPH % 23.7 % (9.0-44.0); LYMPHOCYTE # 2.4 TH/MM3 (1.0-4.8); MEAN CORPUSCULAR HEMOGLOBIN 25.5 PG (27.0-34.0); MEAN CORPUSCULAR HGB CONC 32.7 % (32.0-36.0); MONO % 8.3 % (0.0-8.0); NEUT % 63.2 % (16.0-70.0); PLATELET COUNT 235 TH/MM3 (150-450); RED BLOOD COUNT 4.74 MIL/MM3 (4.00-5.30); RED CELL DISTRIBUTION WIDTH 16.1 % (11.6-17.2); WHITE BLOOD COUNT 10.1 TH/MM3 (4.0-11.0)
[2017-10-11 09:48] LABS: ANION GAP 5 MEQ/L (5-15); BICARBONATE 31.9 MEQ/L (21.0-32.0); BLOOD UREA NITROGEN 23 MG/DL (7-18); CHLORIDE 102 MEQ/L (98-107); GLOMERULAR FILTRATION RATE 74 ML/MIN (>89); GLUCOSE,FASTING 154 MG/DL (74-99); SODIUM (NA) 139 MEQ/L (136-145)
== END ==
LOC: PLAB 06:48
PROVIDERS: ATTEND Family Medicine
DX: E03.9 Hypothyroidism, unspecified (principal); K92.1 Melena
CPT/HCPCS: 36415; 80048; 82607; 82746; 84443; 85025

== ENCOUNTER 2017-10-14 10:41 | Emergency (ER) | payer OTHER ==
[~2017-10-14] VITALS: Ht 162.6 cm; Wt 79.5 kg
[~2017-10-14 10:41] MED LIST changes: -CARA1TAB6 PO; -LEVO100T5 PO; -MULT-65 PO; -VITA10002 PO
[2017-10-14 10:58] VITALS: BP 171/79; PULSE 65; RESP 18; TEMP 97.8; O2SAT 96
[2017-10-14 11:07] VITALS: BP 171/79; PULSE 63; RESP 18; TEMP 97.9; O2SAT 96
--- NOTE | 2017-10-14 11:19 | PD ---
HPI Chief Complaint: Chest Pain Time Seen by Provider: 11:04 Travel History International Travel<30 days: No Contact w/Intl Traveler<30days: No Traveled to known affect area: No History of Present Illness HPI 77-year-old female complains of chest pain. Patient states that she has intermittent left-sided chest pain since this morning. Patient states the pain is spasm type pain localized to left chest. Patient denies any pain radiation. Patient denies palpitation nausea vomiting diaphoresis. Patient denies any coughing congestion fever chills. Patient has history of CAD status post stents placement in 2007. Patient is on aspirin 81 mg daily. Patient has history hypertension, diabetes, hyperlipidemia. Patient is an ex-smoker. Patient has family history of heart disease. Patient states that she does not have any chest pain now. PFSH Past Medical History Hx Anticoagulant Therapy: Yes Arthritis: Yes Asthma: No Blood Disorders: No Anxiety: No Depression: Yes Heart Rhythm Problems: No Cancer: No Cardiac Catheterization: Yes (1 STENT) Cardiovascular Problems: Yes (STENTS, HTN ) High Cholesterol: Yes Chest Pain: Yes Congestive Heart Failure: No COPD: No Diabetes: Yes Patient Takes Glucophage: No Diminished Hearing: Yes ([place] [employer]) Endocrine: Yes Gastrointestinal Disorders: Yes (GERD, HX ULCERS) GERD: Yes Glaucoma: Yes Genitourinary: No Hepatitis: No Hiatal Hernia: No Hypertension: Yes Immune Disorder: No Implanted Vascular Access Dvce: No Musculoskeletal: Yes (ARTHRITIS HANDS & FEET) Neurologic: No Psychiatric: No Reproductive: No Respiratory: Yes (SLEEP APNEA ) Immunizations Current: Yes Myocardial Infarction: No Sleep Apnea: No Thyroid Disease: Yes (HYPOTHYROID) Ulcer: Yes (DECEMBER 2006) Menopausal: Yes : 3 Para: 3 Past Surgical History Abdominal Surgery: Yes (BLEEDING ULCERS) AICD: No Appendectomy: No Body Medical Devices: CARDIAC STENT Cardiac Surgery: Yes (AAA STENTING, CAD WITH STENTS ) Cholecystectomy: No Ear Surgery: No Endocrine Surgery: No Eye Surgery: Yes (ALENA cataract ext) Genitourinary Surgery: Yes Gynecologic Surgery: Yes (hysterectomy) Hysterectomy: Yes Joint Replacement: No Neurologic Surgery: No Oral Surgery: Yes (TONSILLECTOMY) Pacemaker: No Thoracic Surgery: No Tonsillectomy: Yes Other Surgery: Yes Social History Alcohol Use: No Tobacco Use: No (quit 20 years ago) Substance Use: No Allergies-Medications (Allergen,Severity, Reaction): Coded Allergies: clams (Unverified Allergy, Severe, n/v, 10/14/17) oyster extract (Unverified Allergy, Severe, n/v, 10/14/17) red dye (Unverified Allergy, Severe, hives and swelling, 10/14/17) scallops (Unverified Allergy, Severe, nausea and vomiting, 10/14/17) Uncoded Allergies: RED 40 DYE (Allergy, Severe, THROAT CLOSES, HIVES, 07/05/14) CLAMS/OYSTERS/SCALLOPS (Allergy, Intermediate, NAUSEA/VOMITTING, 07/05/14) Reported Meds & Prescriptions Reported Meds & Active Scripts Active Reported Carafate (Sucralfate) 1 Gram Tab 1 Gm PO QID On empty stomach Glimepiride 1 Mg Tab 2 Mg PO HS Vitamin B-12 (Cyanocobalamin) 1,000 Mcg Tab 1,000 Mcg PO DAILY Multi-Vitamin Daily (Multiple Vitamin) 1 Tab Tab 1 Tab PO DAILY Levothyroxine (Levothyroxine Sodium) 100 Mcg Tab 100 Mcg PO DAILY Bethanechol 25 Mg Tab 12.5 Mg PO BID Verapamil SR (Verapamil HCl) 240 Mg Tab 240 Mg PO DAILY Timolol Opth Drops 0.5 % Soln 1 Drop LEFT EYE HS Micardis (Telmisartan) 40 Mg Tab 40 Mg PO BID K-Tab (Potassium Chloride) 10 Meq Tab 10 Meq PO BID Pantoprazole (Pantoprazole Sodium) 40 Mg Tab 40 Mg PO DAILY Amlodipine (Amlodipine Besylate) 5 Mg Tab 5 Mg PO DAILY Metoprolol Tartrate 25 Mg Tab 25 Mg PO DAILY Metformin ER (Metformin HCl) 500 Mg Huang 500 Mg PO BIDPC With evening meal Lovastatin 40 Mg Tab 40 Mg PO HS Hydrochlorothiazide 25 Mg Tab 25 Mg PO DAILY Fluocinolone Topical (Fluocinolone Acetonide) 0.01% Cream 1 Applic TOPICAL HS Aspir-81 (Aspirin) 81 Mg Tabdr 81 Mg PO HS Glimepiride 1 Mg Tab 0.5 Mg PO DAILY IN THE AM Take after breakfast or first main meal Review of Systems General / Constitutional: No: Fever Eyes: No: Visual changes HENT: No: Headaches Cardiovascular: Positive: Chest Pain or Discomfort Respiratory: No: Shortness of Breath Genitourinary: No: Dysuria Musculoskeletal: No: Pain Skin: No Rash Neurologic: No: Weakness Psychiatric: No: Depression Endocrine: No: Polydipsia Hematologic/Lymphatic: No: Easy Bruising Physical Exam Narrative GENERAL: Well-nourished, well-developed patient. SKIN: Focused skin assessment warm/dry. HEAD: Normocephalic. EYES: No scleral icterus. No injection or drainage. NECK: Supple, trachea midline. No JVD or lymphadenopathy. CARDIOVASCULAR: Regular rate and rhythm without murmurs, gallops, or rubs. RESPIRATORY: Breath sounds equal bilaterally. No accessory muscle use. GASTROINTESTINAL: Abdomen soft, non-tender, nondistended. MUSCULOSKELETAL: No cyanosis, or edema. BACK: Nontender without obvious deformity. No CVA tenderness. Neurologic exam normal. Data Data Last Documented VS Vital Signs Date Time Temp Pulse Resp B/P (MAP) Pulse Ox O2 Delivery O2 Flow Rate FiO2 10/14/17 16:06 61 18 164/70 (101) 92 Room Air 10/14/17 11:07 97.9 Orders Orders Complete Blood Count With Diff (10/14/17 11:37) Comprehensive Metabolic Panel (10/14/17 11:37) Creatine Kinase (Cpk) (10/14/17 11:37) Troponin I (10/14/17 11:37) Prothrombin Time / Inr (Pt) (10/14/17 11:37) Act Partial Throm Time (Ptt) (10/14/17 11:37) Thyroid Stimulating Hormone (10/14/17 11:37) Chest, Single Ap (10/14/17 11:37) Iv Access Insert/Monitor (10/14/17 11:37) Ecg Monitoring (10/14/17 11:37) Oximetry (10/14/17 11:37) Creatine Kinase (Cpk) (10/14/17 14:50) Troponin I (10/14/17 14:50) Ed Discharge Order (10/14/17 17:28) Labs Laboratory Tests Test 10/14/17 11:50 10/14/17 14:58 White Blood Count 10.7 TH/MM3 Red Blood Count 4.71 MIL/MM3 Hemoglobin 12.2 GM/DL Hematocrit 36.9 % Mean Corpuscular Volume 78.3 FL Mean Corpuscular Hemoglobin 25.8 PG Mean Corpuscular Hemoglobin Concent 33.0 % Red Cell Distribution Width 16.1 % Platelet Count 236 TH/MM3 Mean Platelet Volume 9.1 FL Neutrophils (%) (Auto) 64.0 % Lymphocytes (%) (Auto) 23.8 % Monocytes (%) (Auto) 8.8 % Eosinophils (%) (Auto) 3.0 % Basophils (%) (Auto) 0.4 % Neutrophils # (Auto) 6.9 TH/MM3 Lymphocytes # (Auto) 2.6 TH/MM3 Monocytes # (Auto) 0.9 TH/MM3 Eosinophils # (Auto) 0.3 TH/MM3 Basophils # (Auto) 0.0 TH/MM3 CBC Comment DIFF FINAL Differential Comment Prothrombin Time 10.3 SEC Prothromb Time International Ratio 1.0 RATIO Activated Partial Thromboplast Time 25.4 SEC Blood Urea Nitrogen 18 MG/DL Creatinine 0.88 MG/DL Random Glucose 183 MG/DL Total Protein 7.7 GM/DL Albumin 3.7 GM/DL Calcium Level 9.2 MG/DL Alkaline Phosphatase 105 U/L Aspartate Amino Transf (AST/SGOT) 18 U/L Alanine Aminotransferase (ALT/SGPT) 24 U/L Total Bilirubin 0.5 MG/DL Sodium Level 138 MEQ/L Potassium Level 4.2 MEQ/L Chloride Level 101 MEQ/L Carbon Dioxide Level 28.2 MEQ/L Anion Gap 9 MEQ/L Estimat Glomerular Filtration Rate 63 ML/MIN Total Creatine Kinase 81 U/L 66 U/L Troponin I LESS THAN 0.02 NG/ML LESS THAN 0.02 NG/ML Thyroid Stimulating Hormone 3rd Gen 3.430 uIU/ML MDM Medical Decision Making Medical Screen Exam Complete: Yes Emergency Medical Condition: Yes Interpretation(s) Last Impressions Chest X-Ray 10/14/17 1137 Signed Impressions: Service Date/Time: October 11:45 - CONCLUSION: No acute disease. Pankaj Wilkinson MD Cardiac enzymes negative 2. Differential Diagnosis Differential diagnosis including musculoskeletal, angina, IL, PE, pneumothorax. Narrative Course 77-year-old female with chest pain. History of CAD status post stent placement. I spoke to Dr. Engle, covering for Dr. Romeo. Advised for patient to follow-up with Dr. Romeo in the office. Return if worse. Diagnosis Primary Impression: Chest pain Qualified Codes: R07.9 - Chest pain, unspecified Patient Instructions: General Instructions Additional Instructions: Continue with medications as directed. 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 Return immediately if increasing chest pain or shortness of breath. Med/Other Pt SpecificInfo: No Change to Meds Disposition: 01 DISCHARGE HOME Condition: Stable Floyd Kilgore MD Oct 14, 2017 11:19
[2017-10-14] MEDS ORDERED: GLIM1TAB PO (11:20)
[2017-10-14] MEDS ORDERED: MULT-65 PO (11:20)
[2017-10-14] MEDS ORDERED: LEVO100T5 PO (11:20)
[2017-10-14] MEDS ORDERED: VITA10002 PO (11:20)
[2017-10-14] MEDS ORDERED: CARA1TAB6 PO (11:21)
[2017-10-14 11:53] VITALS: PULSE 68; RESP 18; O2SAT 96
[2017-10-14 12:02] LABS: AUTOMATED NEUTROPHIL # 6.9 TH/MM3 (1.8-7.7); BASOPHIL % 0.4 % (0.0-2.0); EOSINOPHIL # 0.3 TH/MM3 (0-0.4); HEMATOCRIT 36.9 % (35.0-46.0); HEMOGLOBIN 12.2 GM/DL (11.6-15.3); LYMPH % 23.8 % (9.0-44.0); LYMPHOCYTE # 2.6 TH/MM3 (1.0-4.8); MEAN CELL VOLUME 78.3 FL (80.0-100.0); MEAN CORPUSCULAR HEMOGLOBIN 25.8 PG (27.0-34.0); MEAN PLATELET VOLUME 9.1 FL (7.0-11.0); MONO % 8.8 % (0.0-8.0); MONOCYTE # 0.9 TH/MM3 (0-0.9); PLATELET COUNT 236 TH/MM3 (150-450); RED BLOOD COUNT 4.71 MIL/MM3 (4.00-5.30); RED CELL DISTRIBUTION WIDTH 16.1 % (11.6-17.2); WHITE BLOOD COUNT 10.7 TH/MM3 (4.0-11.0)
[2017-10-14 12:07] LABS: PROTHROMBIN TIME - PATIENT 10.3 SEC (9.8-11.6)
--- NOTE | 2017-10-14 12:08 | RADRPT ---
EXAM DATE/TIME: 10/14/2017 11:45 [facility] COMPARISON: CHEST SINGLE AP, November 27, 2016, 16:27. INDICATIONS : Chest pain. MEDICAL HISTORY : Hypertension. Diabetes mellitus type II. SURGICAL HISTORY : Coronary artery stent. ENCOUNTER: Initial ACUITY: 1 day PAIN SCORE: 6/10 LOCATION: Left chest FINDINGS: A single view of the chest demonstrates the lungs to be symmetrically aerated without evidence of mas s, infiltrate or effusion. The cardiomediastinal contours are unremarkable. Osseous structures are intact. CONCLUSION: No acute disease. Pankaj Wilkinson MD on October 14, 2017 at 12:06 Board Certified Radiologist. This report was verified electronically.
[2017-10-14 12:19] LABS: ALBUMIN 3.7 GM/DL (3.4-5.0); ALT (GPT) 24 U/L (10-53); AST (GOT) 18 U/L (15-37); BICARBONATE 28.2 MEQ/L (21.0-32.0); BLOOD UREA NITROGEN 18 MG/DL (7-18); CALCIUM 9.2 MG/DL (8.5-10.1); CHLORIDE 101 MEQ/L (98-107); CREATININE 0.88 MG/DL (0.50-1.00); GLOMERULAR FILTRATION RATE 63 ML/MIN (>89); GLUCOSE,RANDOM 183 MG/DL (74-106); SODIUM (NA) 138 MEQ/L (136-145)
[2017-10-14 12:29] LABS: ALKALINE PHOSPHATASE 105 U/L (45-117); TOTAL BILIRUBIN ADULT 0.5 MG/DL (0.2-1.0); TOTAL PROTEIN 7.7 GM/DL (6.4-8.2); TROPONIN I LESS THAN 0.02 NG/ML (0.02-0.05)
[2017-10-14 16:06] VITALS: BP 164/70; PULSE 61; RESP 18; O2SAT 92
[2017-10-14 16:18] LABS: TROPONIN I LESS THAN 0.02 NG/ML (0.02-0.05)
== END 2017-10-14 17:52 | disposition home or self-care (01) ==
LOC: NEPC 10:41
DX: R07.9 Chest pain, unspecified (principal); E03.9 Hypothyroidism, unspecified; E11.9 Type 2 diabetes mellitus without complications; E78.00 Pure hypercholesterolemia, unspecified; I10 Essential (primary) hypertension; I25.10 Atherosclerotic heart disease of native coronary artery without angina pectoris; Z79.82 Long term (current) use of aspirin; Z79.84 Long term (current) use of oral hypoglycemic drugs; Z87.891 Personal history of nicotine dependence; Z95.5 Presence of coronary angioplasty implant and graft
CPT/HCPCS: 71010; 80053; 82550; 84443; 84484; 85025; 85610; 85730; 99285

== ENCOUNTER → 2018-01-18 | Outpatient (CLI) | payer OTHER ==
[~2018-01-18] MED LIST changes: -B12-1CHW CHEW; +CARA1TAB6 PO; +LEVO100T5 PO; -LEVO88TA2 PO; -MULT-135 PO; +MULT-65 PO; +VITA10002 PO
[2018-01-18 11:12] LABS: ALBUMIN 3.8 GM/DL (3.4-5.0); AST (GOT) 18 U/L (15-37); BLOOD UREA NITROGEN 22 MG/DL (7-18); CALCIUM 9.4 MG/DL (8.5-10.1); CHLORIDE 100 MEQ/L (98-107); CHOLESTEROL 106 MG/DL (120-200); CREATININE 0.83 MG/DL (0.50-1.00); GLOMERULAR FILTRATION RATE 67 ML/MIN (>89); GLUCOSE,FASTING 72 MG/DL (74-99); SODIUM (NA) 138 MEQ/L (136-145); TRIGLYCERIDES 148 MG/DL (42-150)
[2018-01-18 11:17] LABS: ALKALINE PHOSPHATASE 84 U/L (45-117); ALT (GPT) 22 U/L (10-53); CHOLESTEROL/ HDL RATIO 3.22 RATIO; HDL CHOLESTEROL 32.9 MG/DL (40.0-60.0); LDL CHOLESTEROL 44 MG/DL (0-99); TOTAL BILIRUBIN ADULT 0.5 MG/DL (0.2-1.0); TOTAL PROTEIN 7.6 GM/DL (6.4-8.2)
[2018-01-18 16:24] LABS: HEMOGLOBIN A1C 5.7 % (4.3-6.0)
== END ==
LOC: PLAB 06:49
PROVIDERS: ATTEND Family Medicine
DX: E78.5 Hyperlipidemia, unspecified (principal); E11.51 Type 2 diabetes mellitus with diabetic peripheral angiopathy without gangrene; E11.22 Type 2 diabetes mellitus with diabetic chronic kidney disease; N18.2 Chronic kidney disease, stage 2 (mild)
CPT/HCPCS: 36415; 80053; 80061; 83036

== ENCOUNTER → 2018-01-24 | Outpatient (CLI) | payer OTHER | LOC: PLAB 09:23 | PROVIDERS: ATTEND Family Medicine | DX: E03.9 Hypothyroidism, unspecified (principal) | CPT/HCPCS: 36415; 84443 ==

== ENCOUNTER → 2018-03-31 | Outpatient (CLI) | payer OTHER | LOC: CLAB 10:56 | PROVIDERS: ATTEND Family Medicine | DX: E03.9 Hypothyroidism, unspecified (principal) | CPT/HCPCS: 36415; 84443 ==

== ENCOUNTER 2018-04-01 14:21 | Day surgery (SDC) | payer OTHER ==
[2018-04-01 14:39] VITALS: BP 169/82; PULSE 63; RESP 18; TEMP 97.6; O2SAT 93
--- NOTE | 2018-04-01 16:26 | RADRPT ---
EXAM DATE: 04/01/2018 3:09 PM EDT AGE/SEX: 77 years / Female INDICATIONS: AAA leak HISTORY OF PRESENT ILLNESS: 77-year-old female with history of 5.6 cm abdominal aortic aneurysm diag nosed in June 2014 status post endovascular graft repair on July 2014. Patient has had a persi stent endoleak since the procedure with aneurysm sac measuring between 4.9 and 5.[address] A exam on 03/09/2018 was interpreted as possible interval growth. Patient remains asymptomatic. TEMPERATURE: 97.6 HEART RATE: 63 BLOOD PRESSURE: 169/82 RESPIRATIONS: 18 OXIMETRY: 93 PNEUMONIA VACCINE: no MEDICAL/SURGICAL HISTORY: Aneurysm, abdominal. Diabetes mellitus type II. Hypertension. GERD ,HYPOTHRIOD,SLEEP APNEA,GLAUCOMA,CARDIAC STENT, HYPOTHYRIOD Abdominal aortic aneurysm repair. Hyste rectomy. SOCIAL HISTORY: No alcohol use. SMOKING HISTORY: ALLERGIES: Shellfish RED DYE MEDICATIONS: Glumetza (Metformin) 500 MG b.i.d. Aspirin 81 MG q.d. METOPROLOL 25 q.d. MICARDIS 40 q.d. IMAGING STUDIES: Multiple prior CT angiogram examinations were reviewed. Specifically, CT angiograms dated 03/09/2018, , 04/07/2016, 10/22/2015, and 06/12/2014. Examinations demonstrate a persistent small type II end oleak likely due to L4 lumbar arteries. The aneurysm sac is stable measuring approximately 5.2 cm on both 03/09/2017 and 03/09/2018 examinations remeasured by myself and Dr. Marrero. There is no evidence for aneurysm leak or rupture. ASSESSMENT: 77-year-old female with initially 5.6 cm abdominal aortic aneurysm diagnosed in June [address] endovascular graft repair with persistent endoleak since the procedure. Retrospective review of the [facility] previous CT examinations remeasured by myself and Dr. Marrero do not demonstrate interval enlarg ement of the aneurysm sac. Therefore, recommend short-term interval [facility] We will defer any potential treatments at this time. Findings and rationale were discussed in detail with patient and her daughter. They are in agreement. PLAN: CT examination in 6 months with reevaluation in interventional radiology clinic. TIME SPENT: 20 minutes. Electronically signed by: Daquan Bernstein MD 04/01/2018 4:24 PM EDT
== END 2018-04-01 16:05 | disposition home or self-care (01) ==
LOC: HROP 14:21 → HRIP 14:22 → HROP 16:05
PROVIDERS: ATTEND Surgery
DX: T82.330A Leakage of aortic (bifurcation) graft (replacement), initial encounter (principal)
CPT/HCPCS: 99213; G0463

== ENCOUNTER 2018-10-15 17:14 | Inpatient (IN) ==
[2018-10-15] MEDS ORDERED: Sodium Chlor 0.9% Inj 500 ML IV.SIG ONE (18:12)
--- NOTE | 2018-10-15 18:18 | ED ---
HPI General Chief Complaint: Urogenital-Female Stated Complaint: flank pain Time Seen by Provider: 10/15/18 17:36 Source: patient and RN notes reviewed Mode of arrival: ambulatory Limitations: no limitations History of Present Illness HPI narrative: 78 year old female presents to the emergency department for evaluation of right lower abdominal pain that radiates to the back. Patient states she has had this pain intermittently for 6 weeks. She states her primary care physician gave her medication which did make the pain go away, but then it has recurred. She states she has an appointment with GI, but not until November. However, this morning, she states that she had a fever of 101.0. She did not take any medication and fever has resolved. Patient reports nausea and decreased appetite. No diarrhea or constipation. She does report history of AAA repair. She states she had a CTA done in September at [facility]. Patient states the pain has resolved at this time. No chest pain or shortness of breath. Moderate severity. MD complaint: Reports abdominal pain Onset (ago): week(s) (6) Pain Consistency: intermittent Location: Reports RLQ Severity: moderate Radiation: Reports back Relieving factors: nothing Exacerbating factors: nothing Associated symptoms: Reports nausea, fever and chills; Denies vomiting, diarrhea , constipation, dysuria, hematemesis, hematochezia, melena, hematuria, anorexia and syncope Related Data Home Medications Medication Instructions Recorded Confirmed amlodipine 5 mg PO DAILY 10/15/18 10/15/18 bethanechol chloride 25 mg PO BID 10/15/18 10/15/18 glimepiride 1 mg PO BID 10/15/18 10/15/18 levothyroxine 112 mcg PO DAILY 10/15/18 10/15/18 lovastatin 40 mg PO DAILY 10/15/18 10/15/18 metformin 500 mg PO 10/15/18 metoprolol succinate 10/15/18 pantoprazole [Protonix] 10/15/18 potassium bicarb-citric acid 10/15/18 sucralfate 10/15/18 telmisartan [Micardis] 40 mg PO DAILY 10/15/18 10/15/18 Allergies Allergy/AdvReac Type Severity Reaction Status Date / Time clams Allergy Severe n/v Verified 10/15/18 19:27 oyster extract Allergy Severe n/v Verified 10/15/18 19:27 red dye Allergy Severe hives and Verified 10/15/18 19:27 swelling scallops Allergy Severe nausea and Verified 10/15/18 19:27 vomiting Review of Systems ROS: all other systems reviewed are negative PMFSH Medical History Medical History Aortic aneurysm and dissection (Acute) Diabetes (Acute) Gastroparesis (Acute) HTN (hypertension) (Acute) Social History Social History Substance History: No History of Abuse Second Hand Smoke Exposure: No Smoking Status: Never smoker Tobacco Type: Cigarettes How Often Do You Have a Drink Containing Alcohol: Monthly or less Recent Travel in [facility] within the Last 8 Weeks: No Recent Out of Country Travel within the Last 8 Weeks: No Immunization History Tetanus Immunization: Unsure Exam Narrative Exam Narrative: GENERAL: Well-nourished, well-developed female patient, ambulatory. Afebrile. SKIN: Focused skin assessment warm/dry. HEAD: Normocephalic. Atraumatic. EYES: No scleral icterus. No injection or drainage. NECK: Supple, trachea midline. No JVD or lymphadenopathy. CARDIOVASCULAR: Regular rate and rhythm without murmurs, gallops, or rubs. RESPIRATORY: Breath sounds equal bilaterally. No accessory muscle use. Lung sounds are clear to auscultation GASTROINTESTINAL: Abdomen soft, non-tender, nondistended. MUSCULOSKELETAL: No cyanosis, or edema. BACK: Nontender without obvious deformity. No CVA tenderness. Course Initial Documented Vital Signs Temperature 98.7 F 10/15/18 17:20 Pulse Rate 88 10/15/18 17:20 Respiratory Rate 20 10/15/18 17:20 Blood Pressure 187/87 H 10/15/18 17:20 Pulse Oximetry 96 10/15/18 17:20 Last Documented Vital Signs Temperature 98.7 F 10/15/18 17:20 Pulse Rate 72 10/15/18 19:00 Respiratory Rate 18 10/15/18 19:00 Blood Pressure 162/72 H 10/15/18 19:00 Pulse Oximetry 99 10/15/18 19:00 Medical Decision Making SCOTT Attestation SCOTT supervised visit: Yes Attestation: The history, exam, and medical decision-making in the associated midlevel provider note were completed with my assistance. I reviewed and agree with the findings presented. I attest that I had a [id number] encounter with the patient on the same day, and personally performed and documented my assessment and findings in the medical record. *My assessment and Findings:This is a 78 year old female who presents to the emergency department with abdominal pain on the right side with fever. Differential includes cholecystitis versus appendicitis versus colitis. Plan for US, CT, and IV antibiotics given leukocytosis. [facility] Narrative Medical decision making narrative: 78-year-old female presents to the emergency department for evaluation of lower abdominal pain radiates to the back for 6 weeks, reports fever this morning. IV access obtained. CBC, CMP, lipase, PTT, PT/INR, UA are ordered and pending. CT abdomen/pelvis with IV contrast is ordered and pending. Patient is given normal saline 500 mL bolus. CBC shows significant leukocytosis of 21.2. CMP shows no acute abnormality. Lipase is 225. PTT is 28.4. PT/INR is 10.7/1.1. UA is negative for acute infection. CT abdomen/pelvis shows a type II endovascular leak slightly worse since the prior study from 2015. Gallbladder ultrasound shows the liver is slightly echogenic which may be due to fatty infiltration and/or hepatocellular dysfunction. Chest x-ray is ordered due to the leukocytosis. Chest x-ray shows left upper lobe parenchymal infiltrate and/or consolidation not present previously. Follow-up is recommended with repeat chest x-ray 4-6 weeks after appropriate clinical therapy. Patient is started on azithromycin, Rocephin. She will be admitted for pneumonia. Patient verbalizes agreement to this. Radiologist states that endovascular leak is slightly worse than scan done in September. I consulted the vascular surgeon who states that he will see the patient tomorrow will consult, nothing emergently to do at this time. Medical Screen Exam Complete: Yes Emergency Medical Condition: Yes Differential Diagnosis Differential Diagnosis: nephrolithiasis vs. UTI vs. pyelonephritis vs. diverticulitis vs. appendicitis vs. AAA Medical Records Medical records reviewed: Yes I reviewed the patient's medical records. Lab Data Result diagrams: 10/15/18 18:30 10/15/18 18:30 Lab Results 10/15/18 10/15/18 10/15/18 Range/Units 18:30 18:30 18:30 WBC 21.2 H (4.0-11.0) th/mm3 RBC 4.69 (4.00-5.30) mil/mm3 Hgb 13.0 (11.6-15.3) gm/dL Hct 39.5 (35.0-46.0) % MCV 84.3 (80.0-100.0) fL MCH 27.8 (27.0-34.0) pg MCHC 33.0 (32.0-36.0) % RDW 14.2 (11.6-17.2) % Plt Count 241 (150-450) th/mm3 MPV 9.6 (7.0-11.0) fL Neut % (Auto) 74.0 H (16.0-70.0) % Lymph % (Auto) 17.3 (9.0-44.0) % [place] % (Auto) 7.6 (0.0-8.0) % Eos % (Auto) 0.8 (0.0-4.0) % Baso % (Auto) 0.3 (0.0-2.0) % Neut # (Auto) 15.7 H (1.8-7.7) th/mm3 Lymph # (Auto) 3.7 (1.0-4.8) th/mm3 [place] # (Auto) 1.6 H (0.0-0.9) th/mm3 Eos # (Auto) 0.2 (0.0-0.4) th/mm3 Baso # (Auto) 0.1 (0.0-0.2) th/mm3 WBC Differential . Differential Comment Auto diff final PT 10.7 (9.8-11.6) sec INR 1.1 Ratio APTT 28.4 (23.4-31.7) sec Sodium 139 (136-145) meq/L Potassium 3.4 L (3.5-5.1) meq/L Chloride 103 (98-107) meq/L Carbon Dioxide 28.7 (21.0-32.0) meq/L Anion Gap 7 (5-15) meq/L BUN 13 (7-18) mg/dL Creatinine 0.71 (0.50-1.00) mg/dL Estimated GFR 80 L (>89) mL/min Random Glucose 108 H (74-106) mg/dL Lactic Acid (0.4-2.0) mmol/L Calcium 8.4 L (8.5-10.1) mg/dL Magnesium 1.6 (1.5-2.5) mg/dL Total Bilirubin 0.7 (0.2-1.0) mg/dL AST 12 L (15-37) U/L ALT 16 (10-53) U/L Alkaline Phosphatase 97 (45-117) U/L Total Protein 7.7 (6.4-8.2) g/dL Albumin 3.6 (3.4-5.0) g/dL Lipase 225 (73-393) U/L Urine Color (Yellw/Straw) Urine Clarity (Clear) Urine pH (5.0-8.5) Ur Specific [place] (1.002-1.035) Urine Protein (Neg-Trace) mg/dL Urine Glucose (UA) (Negative) mg/dL Urine Ketones (Negative) mg/dL Urine Occult Blood (Negative) Urine Nitrate (Negative) Urine Bilirubin (Negative) Urine Urobilinogen (Less than 2) mg/dL Ur Leukocyte Esterase (Negative) Urine RBC (0-3) /hpf Urine WBC (0-5) /hpf Ur Squamous Epith Cells (0-5) /hpf Micro UA Comment Ur Microscopic Review Urine Culture Comments 10/15/18 10/15/18 Range/Units 18:45 19:20 WBC (4.0-11.0) th/mm3 RBC (4.00-5.30) mil/mm3 Hgb (11.6-15.3) gm/dL Hct (35.0-46.0) % MCV (80.0-100.0) fL MCH (27.0-34.0) pg MCHC (32.0-36.0) % RDW (11.6-17.2) % Plt Count (150-450) th/mm3 MPV (7.0-11.0) fL Neut % (Auto) (16.0-70.0) % Lymph % (Auto) (9.0-44.0) % [place] % (Auto) (0.0-8.0) % Eos % (Auto) (0.0-4.0) % Baso % (Auto) (0.0-2.0) % Neut # (Auto) (1.8-7.7) th/mm3 Lymph # (Auto) (1.0-4.8) th/mm3 [place] # (Auto) (0.0-0.9) th/mm3 Eos # (Auto) (0.0-0.4) th/mm3 Baso # (Auto) (0.0-0.2) th/mm3 WBC Differential Differential Comment PT (9.8-11.6) sec INR Ratio APTT (23.4-31.7) sec Sodium (136-145) meq/L Potassium (3.5-5.1) meq/L Chloride (98-107) meq/L Carbon Dioxide (21.0-32.0) meq/L Anion Gap (5-15) meq/L BUN (7-18) mg/dL Creatinine (0.50-1.00) mg/dL Estimated GFR (>89) mL/min Random Glucose (74-106) mg/dL Lactic Acid 1.5 (0.4-2.0) mmol/L Calcium (8.5-10.1) mg/dL Magnesium (1.5-2.5) mg/dL Total Bilirubin (0.2-1.0) mg/dL AST (15-37) U/L ALT (10-53) U/L Alkaline Phosphatase (45-117) U/L Total Protein (6.4-8.2) g/dL Albumin (3.4-5.0) g/dL Lipase (73-393) U/L Urine Color Straw (Yellw/Straw) Urine Clarity Clear (Clear) Urine pH 6.0 (5.0-8.5) Ur Specific [place] 1.004 (1.002-1.035) Urine Protein Negative (Neg-Trace) mg/dL Urine Glucose (UA) Negative (Negative) mg/dL Urine Ketones Negative (Negative) mg/dL Urine Occult Blood Negative (Negative) Urine Nitrate Negative (Negative) Urine Bilirubin Negative (Negative) Urine Urobilinogen Less than 2 (Less than 2) mg/dL Ur Leukocyte Esterase Small H (Negative) Urine RBC 1 (0-3) /hpf Urine WBC 2 (0-5) /hpf Ur Squamous Epith Cells 2 (0-5) /hpf Micro UA Comment Culture not ind Ur Microscopic Review Not Reportable Urine Culture Comments Culture not ind Imaging Data Radiologist's impression: Abdomen/Pelvis CT 10/15/18 18:12 CONCLUSION: There is a type II endovascular leak slightly worse since the prior study from 2016. Chest X-Ray 10/15/18 18:51 CONCLUSION: Left upper lobe parenchymal infiltrate and/or consolidation not present previously. Follow-up is recommended with repeat chest x-ray in 4-6 weeks after appropriate clinical therapy. Gallbladder Ultrasound 10/15/18 18:57 CONCLUSION: The liver is slightly echogenic which may be due to fatty infiltration and or hepatocellular dysfunction. Discharge Plan Discharge Disposition Patient Disposition: ED Admit(ED Internal Use Only) Discharge Order Discharge Orders: ED Use Only Admit Order (Routine); Ordered 10/15/18 Ordered By: Roxie Farrar Discharge Details Diagnosis: Pneumonia, Endoleak post endovascular aneurysm repair, SIRS (systemic inflammatory response syndrome) Physicians Team ED Provider: Angelica Connors ED Midlevel Provider: Roxie Farrar Primary Care Provider: Kem Estrada Rxs /Orders / Referrals /Forms Prescriptions: No Action metformin 500 mg Tablet 500 mg PO RF: 0 amlodipine 5 mg Tablet 5 mg PO DAILY RF: 0 bethanechol chloride 25 mg Tablet 25 mg PO BID RF: 0 pantoprazole [Protonix] 40 mg Tablet,Delayed Release (Dr/Ec) RF: 0 telmisartan [Micardis] 40 mg Tablet 40 mg PO DAILY RF: 0 potassium bicarb-citric acid 10 mEq Tablet, Effervescent RF: 0 levothyroxine 112 mcg Capsule 112 mcg PO DAILY RF: 0 sucralfate 1 gram Tablet RF: 0 lovastatin 40 mg Tablet 40 mg PO DAILY RF: 0 glimepiride 1 mg Tablet 1 mg PO BID RF: 0 metoprolol succinate 25 mg Cap,Sprinkle,Er 24hr Dose Pack RF: 0 Discharge Interventions Interventions: Vital Signs Last Done: 10/15/18 19:00 Status ED Status: Admitted Patient
[2018-10-15 18:37] LABS: Baso # (Auto) 0.1 th/mm3 (0.0-0.2); Baso % (Auto) 0.3 % (0.0-2.0); Eos # (Auto) 0.2 th/mm3 (0.0-0.4); Eos % (Auto) 0.8 % (0.0-4.0); Hematocrit 39.5 % (35.0-46.0); Lymph # (Auto) 3.7 th/mm3 (1.0-4.8); Lymph % (Auto) 17.3 % (9.0-44.0); Mean Corpuscular Hemoglobin 27.8 pg (27.0-34.0); Mean Corpuscular Volume 84.3 fL (80.0-100.0); Mean Platelet Volume 9.6 fL (7.0-11.0); Mono # (Auto) 1.6 th/mm3 (0.0-0.9); Mono % (Auto) 7.6 % (0.0-8.0); Neut # (Auto) 15.7 th/mm3 (1.8-7.7); Platelet Count 241 th/mm3 (150-450); Red Blood Count 4.69 mil/mm3 (4.00-5.30); Red Cell Distribution Width 14.2 % (11.6-17.2); White Blood Count 21.2 th/mm3 (4.0-11.0)
[2018-10-15 18:49] LABS: Activated Partial Thrombo Time 28.4 sec (23.4-31.7); INR 1.1 Ratio; Prothrombin Time 10.7 sec (9.8-11.6)
[2018-10-15 19:00] LABS: Bilirubin,Urine Negative (Negative); Clarity,Urine Clear (Clear); Color,Urine Straw (Yellw/Straw); Glucose,Urine (UA) Negative (Negative); Leukocyte Esterase,Urine Small (Negative); Nitrite,Urine Negative (Negative); Specific Gravity,Urine 1.004 (1.002-1.035); Squamous Epithelial Cell,Urine 2 /hpf (0-5)
[2018-10-15 19:03] LABS: Alanine Aminotransferase 16 U/L (10-53); Albumin 3.6 g/dL (3.4-5.0); Anion Gap 7 meq/L (5-15); Aspartate Aminotransferase 12 U/L (15-37); Blood Urea Nitrogen 13 mg/dL (7-18); Calcium 8.4 mg/dL (8.5-10.1); Carbon Dioxide 28.7 meq/L (21.0-32.0); Chloride 103 meq/L (98-107); Glomerular Filtration Rate 80 mL/min (>89); Glucose,Random 108 mg/dL (74-106); Lipase 225 U/L (73-393); Magnesium 1.6 mg/dL (1.5-2.5); Potassium 3.4 meq/L (3.5-5.1); Sodium 139 meq/L (136-145)
[2018-10-15 19:05] LABS: Alkaline Phosphatase 97 U/L (45-117); Total Protein 7.7 g/dL (6.4-8.2)
--- NOTE | 2018-10-15 19:23 | XR ---
EXAM DATE: 10/15/2018 7:16 PM EST AGE/SEX: 78 years / Female INDICATIONS: Bilateral lower abdominal-pelvic pain. CLINICAL DATA: This is the patient's initial encounter. Patient reports that signs and symptoms have been present for 1 day and indicates a pain score of 0/10. MEDICAL/SURGICAL HISTORY: Hypertension. Diabetes mellitus type II. Coronary artery stent. COMPARISON: [facility] [place], CHEST SINGLE AP, 10/14/2017. . FINDINGS: There is focal consolidation somewhat irregular left upper lobe not present previously. Heart and mediastinum are unremarkable for technique. CONCLUSION: Left upper lobe parenchymal infiltrate and/or consolidation not present previously. Follow-up is camilo mmended with repeat chest x-ray in 4-6 weeks after appropriate clinical therapy. Electronically signed by: Adela Mckeon MD Board Certified Radiologist 10/15/2018 7:22 PM EST
--- NOTE | 2018-10-15 19:38 | US ---
EXAM DATE: 10/15/2018 7:35 PM EST AGE/SEX: 78 years / Female INDICATIONS: Right upper quadrant pain. CLINICAL DATA: This is the patient's subsequent encounter. Patient reports that signs and symptoms h ave been present for 1 month and indicates a pain score of 2/10. MEDICAL/SURGICAL HISTORY: Aneurysm, abdominal. Hypertension. Diabetes. Gastroparesis. None. COMPARISON: No prior exams available for comparison. MEASUREMENTS: Liver:__ 17.8 cm. Common Bile Duct:__ 8mm. FINDINGS: Liver: Increased echogenicity without focal lesion or ductal dilatation. Portal Vein: Hepatopedal flow seen in portal vein. Common Duct: No intraluminal mass or stone visualized. Gallbladder: Demonstrates no wall thickening or pericholecystic fluid. No stones visualized. Pancreas: FINDINGS Right Kidney: Normal echogenicity and cortical thickness. No mass or hydronephrosis. Other: None. CONCLUSION: The liver is slightly echogenic which may be due to fatty infiltration and or hepatocellular dysfu nction. Electronically signed by: Adela Mckeon MD Board Certified Radiologist 10/15/2018 7:37 PM EST
--- NOTE | 2018-10-15 19:53 | CT ---
EXAM DATE: 10/15/2018 7:45 PM EST AGE/SEX: 78 years / Female INDICATIONS: Right lower abdomen pain for two weeks. CLINICAL DATA: This is the patient's initial encounter. Patient reports that signs and symptoms have been present for 2 weeks and indicates a pain score of 7/10. MEDICAL/SURGICAL HISTORY: Diabetes. Gastroparesis. aortic dissection, aortic aneurysm None. ORAL CONTRAST: No oral contrast ingested. RADIATION DOSE: 10.82 CTDI (mGy) COMPARISON: [facility], CTA ABDOMEN AND AORTA, 04/07/2016. . TECHNIQUE: Multiple contiguous axial images were obtained through the abdomen and pelvis following b olus infusion of 93 ml Omnipaque 350 (iohexol) nonionic water-soluble contrast as a single exam dos e. No oral contrast ingested. Using automated exposure control and adjustment of the mA and/or kV ac cording to patient size, radiation dose was kept as low as reasonably achievable to obtain optimal di agnostic quality images. DICOM format image data is available electronically for review and comparis on. FINDINGS: Abdomen CT: The spleen, pancreas, kidneys, adrenals are unremarkable. There is no evidence for any appreciable p athological adenopathy, free fluid, or bowel obstruction. The liver is questionably slightly fatty. Tiny pericardial effusion is seen probably of no clinical significance. There are atherosclerotic calcifications involving the aorta and iliac arteries chronic in nature. Ex tensive visceral artery calcifications are seen. Aortobiiliac stent is present and appears intact and there is endovascular leak with contrast within [place] AAA sac which measures 4.0 x 5.0 cm in AP and transverse diameters, overall size of the [place] AAA sac has not changed, however the degree of endo vascular leak appears slightly worse since the prior exam. There is no evidence for any or hematoma o utside of the aorta itself. Pelvic CT: There is no evidence for mass, abscess formation, or any significant adenopathy within the pelvis. T here is moderate amount of stool in the colon. There are scattered diverticuli within the colon main ly the sigmoid colon without signs of diverticulitis for technique. CONCLUSION: There is a type II endovascular leak slightly worse since the prior study from 2015. Electronically signed by: Adela Mckeon MD Board Certified Radiologist 10/15/2018 7:51 PM EST
[2018-10-15] MEDS ORDERED: Azithromycin Inj 500 MG in Sodium Chlor 0.9% Inj 250 ML IV.SIG ONE (19:58)
[2018-10-15] MEDS ORDERED: Dextrose 50% in Water 50 ML Vial IV.PUSH PRN (21:04)
[2018-10-15] MEDS ORDERED: Bisacodyl 10 MG Supp RECTAL PRN (21:05)
--- NOTE | 2018-10-15 21:06 | P.HPIM ---
History of Present Illness Primary Care Physician: Kem Estrada MD, PhD History of Present Illness: This is a 78-year-old female with a PMH of HTN, AAA Repair, Gastroparesis and DM who presents the ER with complaints of abdominal pain x2 months. Pain is in lower abdomen, intermittent, moderate, 6/10, w/ radiation to back. Notes episodes of nausea, no vomiting, no diarrhea since yesterday in addition to fever of 101.0 today. Denies cough, chest pain, SOB, or recent sick contacts. +decreased PO intake for the last 1wk. On arrival, BP 187/87, HR 88, O2 sat 96 % on RA, Afebrile. WBC 21.2. INR 1.1. Chemistry essentially unremarkable except for GFR 80. Lactic Acid 1.5. UA negative for UTI. CXR left upper lobe infiltrate. He Abdomen/Pelvis type II endovascular leak slightly worse since study from 2015. Gallbladder US slightly echogenic liver. Pt reports being aware of endoleak "since I had the surgery". Dr. Cleveland consulted, no emergent intervention needed, will eval in am. S/p Rocephin/Zithro for PNA. - Diagnosis (1) SIRS (systemic inflammatory response syndrome) (2) PNA (pneumonia) (3) Abdominal pain (4) Endoleak post endovascular aneurysm repair (5) DM (diabetes mellitus) Review of Systems PAST FAMILY HISTORY: Reviewed. No h/o DM or CAD All other systems reviewed negative except as stated in HPI PMFSH - History History Provided By: Patient - Medical History Medical History: Medical History (Last Updated 10/15/18 @ 17:51 by Deborah Astorga) Aortic aneurysm and dissection Diabetes Gastroparesis HTN (hypertension) - Tobacco History Second Hand Smoke Exposure: No Tobacco Use In Past 30 Days: No Smoking Status: Never smoker Tobacco Type: Cigarettes - Alcohol History How Often Do You Have a Drink Containing Alcohol: Monthly or less - Substance Use History Substance History: No History of Abuse - Travel History Recent Travel in the [place] Within the Last 8 Weeks: No Recent Travel Out of the Country Within the Last 8 Weeks: No - Immunization History Tetanus Immunization: Unsure Medications and Allergies Active Medications: Active Medications Sodium Chloride (Ns Flush) 2 ml IV.FLUSH PRN PRN PRN Reason: FLUSH AFTER USING IV ACCESS Allergies Allergy/AdvReac Type Severity Reaction Status Date / Time clams Allergy Severe n/v Verified 10/15/18 19:27 oyster extract Allergy Severe n/v Verified 10/15/18 19:27 red dye Allergy Severe hives and Verified 10/15/18 19:27 swelling scallops Allergy Severe nausea and Verified 10/15/18 19:27 vomiting Home Medications Medication Instructions Recorded Confirmed Type amlodipine 5 mg PO DAILY 10/15/18 10/15/18 History bethanechol chloride 25 mg PO BID 10/15/18 10/15/18 History glimepiride 1 mg PO BID 10/15/18 10/15/18 History levothyroxine 112 mcg PO DAILY 10/15/18 10/15/18 History lovastatin 40 mg PO DAILY 10/15/18 10/15/18 History metformin 500 mg PO 10/15/18 History metoprolol succinate 10/15/18 History pantoprazole [Protonix] 10/15/18 History potassium bicarb-citric acid 10/15/18 History sucralfate 10/15/18 History telmisartan [Micardis] 40 mg PO DAILY 10/15/18 10/15/18 History Exam Vital signs: Vital Signs 10/15/18 17:20 10/15/18 19:00 Temperature 98.7 F Pulse Rate 88 72 Respiratory Rate 20 18 Blood Pressure 187/87 H 162/72 H Pulse Oximetry 96 99 Intake & Output 10/15/18 10/15/18 10/16/18 06:59 18:59 06:59 Intake Total 600 / 600 Balance 600 / 600 Weight 68.039 kg Intake: IV 600 / 600 NS Inj 500 ML @ Wide Open IV. 500 / 500 SIG BOLUS ONE Rx#:[id number] Rocephin Inj 1,000 MG In NS Inj 100 / 100 100 ML @ 200 mls/hr IV.SIG ONCE ONE Rx#:[id number] Narrative: PE: GENERAL: Very pleasant elderly white female in no acute distress. SKIN: Focused skin assessment warm and dry. HEENT: PERRLA, EOMI. No scleral icterus or conjunctival pallor. No lid lag or facial droop. CARDIOVASCULAR: Regular rate and rhythm. No obvious murmurs to auscultation. No chest tenderness to palpation. RESPIRATORY: No obvious rhonchi or wheezing. Clear to auscultation. Breath sounds equal bilaterally. GASTROINTESTINAL: Abdomen soft, mild generalized tenderness to palpation, nondistended. BS normal. MUSCULOSKELETAL: Extremities without clubbing, cyanosis, or edema. No obvious deformities. NEUROLOGICAL: Awake, alert and oriented x4. No focal neurologic deficits. Moving both upper and lower extremities spontaneously. PSYCHIATRIC: Appropriate mood and affect. Insight and judgment normal. Results - Labs CBC & Chem 7: 10/15/18 18:30 10/15/18 18:30 Labs: Short CBC 10/15/18 Range/Units 18:30 WBC 21.2 H (4.0-11.0) th/mm3 Hgb 13.0 (11.6-15.3) gm/dL Hct 39.5 (35.0-46.0) % Plt Count 241 (150-450) th/mm3 BMP 10/15/18 18:30 Sodium 139 Potassium 3.4 L Chloride 103 Carbon Dioxide 28.7 BUN 13 Creatinine 0.71 Calcium 8.4 L Liver Function 10/15/18 Range/Units 18:30 Total Bilirubin 0.7 (0.2-1.0) mg/dL AST 12 L (15-37) U/L ALT 16 (10-53) U/L Alkaline Phosphatase 97 (45-117) U/L Albumin 3.6 (3.4-5.0) g/dL Urine 10/15/18 Range/Units 18:45 Urine Color Straw (Yellw/Straw) Urine Clarity Clear (Clear) Urine pH 6.0 (5.0-8.5) Ur Specific [place] 1.004 (1.002-1.035) Urine Protein Negative (Neg-Trace) mg/dL Urine Glucose (UA) Negative (Negative) mg/dL - Imaging Impressions Abdomen/Pelvis CT 10/15/18 18:12 CONCLUSION: There is a type II endovascular leak slightly worse since the prior study from 2016. Chest X-Ray 10/15/18 18:51 CONCLUSION: Left upper lobe parenchymal infiltrate and/or consolidation not present previously. Follow-up is recommended with repeat chest x-ray in 4-6 weeks after appropriate clinical therapy. Gallbladder Ultrasound 10/15/18 18:57 CONCLUSION: The liver is slightly echogenic which may be due to fatty infiltration and or hepatocellular dysfunction. Caprini VTE Risk Assessment Caprini VTE Risk Assessment: No/Low Risk (score <= 1) Caprini Risk Assessment Model: Point Value = 1 Point Value = 2 Point Value = 3 Point Value = 5 Age 41-60 Minor surgery BMI > 25 kg/m2 Swollen legs Varicose veins or History of unexplained or recurrent spontaneous Oral contraceptives or hormone replacement Sepsis (< 1 month) Serious lung disease, including pneumonia (< 1 month) Abnormal pulmonary function Acute myocardial infarction Congestive heart failure (< 1 month) History of inflammatory bowel disease Medical patient at bed rest Age 61-74 Arthroscopic surgery Major open surgery (> 45 min) Laparoscopic surgery (> 45 min) Malignancy Confined to bed (> 72 hours) Immobilizing plaster cast Central venous access Age >= 75 History of VTE Family history of VTE Factor V Leiden Prothrombin [id number] Lupus anticoagulant Anticardiolipin antibodies Elevated serum homocysteine Heparin-induced thrombocytopenia Other congenital or acquired thrombophilia Stroke (< 1 month) Elective arthroplasty Hip, pelvis, or leg fracture Acute spinal cord injury (< 1 month) Prophylaxis Regimen: Total Risk Factor Score Risk Level Prophylaxis Regimen 0-1 Low Early ambulation 2 Moderate Order ONE of the following: *Sequential Compression Device (SCD) *Heparin 5000 units SQ BID 3-4 Higher Order ONE of the following medications: *Heparin 5000 units SQ TID *Enoxaparin/Lovenox 40 mg SQ daily (WT < 150 kg, CrCl > 30 mL/min) *Enoxaparin/Lovenox 30 mg SQ daily (WT < 150 kg, CrCl > 10-29 mL/min) *Enoxaparin/Lovenox 30 mg SQ BID (WT < 150 kg, CrCl > 30 mL/min) AND/OR *Sequential Compression Device (SCD) 5 or more Highest Order ONE of the following medications: *Heparin 5000 units SQ TID (Preferred with Epidurals) *Enoxaparin/Lovenox 40 mg SQ daily (WT < 150 kg, CrCl > 30 mL/min) *Enoxaparin/Lovenox 30 mg SQ daily (WT < 150 kg, CrCl > 10-29 mL/min) *Enoxaparin/Lovenox 30 mg SQ BID (WT < 150 kg, CrCl > 30 mL/min) AND *Sequential Compression Device (SCD) Assessment and Plan - Assessment (1) SIRS (systemic inflammatory response syndrome) Code(s): R65.10 - Systemic inflammatory response syndrome (SIRS) of non- infectious origin without acute organ dysfunction Status: Acute (2) PNA (pneumonia) Code(s): J18.9 - Pneumonia, unspecified organism Status: Acute (3) Abdominal pain Code(s): R10.9 - Unspecified abdominal pain Status: Acute (4) Endoleak post endovascular aneurysm repair Code(s): T82.330A - Leakage of aortic (bifurcation) graft (replacement), initial encounter Status: Acute (5) DM (diabetes mellitus) Code(s): E11.9 - Type 2 diabetes mellitus without complications Status: Acute - Plan A/P: 1. SIRS: Temp 101.0 at home, WBC 21, Source-PNA, s/p Blood Cultures, Rocephin/ Zithro in ER, will follow up cultures, continue w/ IV Abx. 2. PNA: CXR w/ ERICA PNA, continue IV Abx, DuoNeb prn, Mucinex bid. 3. Abdominal Pain: notes pain x2 months, now w/ nausea/decreased PO intake, likely viral. CT Abd/Pelvis w/ endoleak, no other abdominal findings. Gallbladder US w/ echogenic liver, no stones/cholecystitis. Analgesics/ antiemetics as needed. 4. Endoleak: h/o AAA Repair w/ chronic endoleak, CT Abd/Pelvis w/ slightly increased leak since 2015, Dr. Cleveland consulted, no emergent intervention needed at this time, will eval in am. 5. DM: Sliding scale w/ Accu-Cheks, hold Metformin for now. 6. DVT Prophylaxis: SCD/Teds 7. Social work for d/c planning as needed 8. Case discussed w/ ER physician at length, labs/records/imaging reviewed by me. (4) Endoleak post endovascular aneurysm repair Qualifiers: Encounter type: initial encounter Qualified Code(s): T82.330A - Leakage of aortic (bifurcation) graft (replacement), initial encounter
[2018-10-16] MEDS: Sod Chloride 0.9% Inj 1,000 ML IV.CONT SCH ×3 (00:07→17:15)
[2018-10-16 06:41] LABS: Baso % (Auto) 0.3 % (0.0-2.0); Eos # (Auto) 0.3 th/mm3 (0.0-0.4); Eos % (Auto) 2.3 % (0.0-4.0); Hematocrit 35.9 % (35.0-46.0); Hemoglobin 12.2 gm/dL (11.6-15.3); Lymph # (Auto) 2.7 th/mm3 (1.0-4.8); Lymph % (Auto) 19.9 % (9.0-44.0); Mean Corpuscular HGB Conc 33.8 % (32.0-36.0); Mean Corpuscular Hemoglobin 28.9 pg (27.0-34.0); Mean Corpuscular Volume 85.3 fL (80.0-100.0); Mean Platelet Volume 9.4 fL (7.0-11.0); Mono # (Auto) 1.1 th/mm3 (0.0-0.9); Mono % (Auto) 8.3 % (0.0-8.0); Neut # (Auto) 9.3 th/mm3 (1.8-7.7); Neut % (Auto) 69.2 % (16.0-70.0); Platelet Count 182 th/mm3 (150-450); Red Blood Count 4.21 mil/mm3 (4.00-5.30); White Blood Count 13.4 th/mm3 (4.0-11.0)
[2018-10-16 07:09] LABS: Alanine Aminotransferase 12 U/L (10-53); Albumin 2.8 g/dL (3.4-5.0); Alkaline Phosphatase 82 U/L (45-117); Anion Gap 5 meq/L (5-15); Aspartate Aminotransferase 10 U/L (15-37); Blood Urea Nitrogen 9 mg/dL (7-18); Calcium 7.8 mg/dL (8.5-10.1); Carbon Dioxide 30.4 meq/L (21.0-32.0); Chloride 108 meq/L (98-107); Glomerular Filtration Rate Greater Than 89 mL/min (>89); Glucose,Random 111 mg/dL (74-106); Potassium 3.3 meq/L (3.5-5.1); Sodium 143 meq/L (136-145); Total Protein 6.4 g/dL (6.4-8.2)
[2018-10-16] MEDS: Insulin NovoLOG Aspart Correctional Sugar Inj SQ SCH ×4 (08:00→21:21)
--- NOTE | 2018-10-16 08:50 | P.CONVS ---
History of Present Illness Service: Vascular surgery Consult date: 10/16/18 Primary Care Provider: Kem Estrada MD, PhD Chief Complaint: Evaluate type II endoleak History of Present Illness: 78-year-old female with a past medical history of infrarenal abdominal aneurysm status post endovascular aneurysm repair by Dr. Denson. She developed type II endoleak which was followed closely. Her last CAT scan was done in September of this year. She was admitted to the hospital with a diagnosis of pneumonia and she had an abdominal CAT scan that was done during her hospital stay. Vascular surgery was consulted to evaluate the endoleak. She does not have any abdominal or back pain that is related to the aneurysm. [facility] - History History Provided By: Patient - Medical History Medical History: Medical History (Last Updated 10/15/18 @ 17:51 by Deborah Astorga) Aortic aneurysm and dissection Diabetes Gastroparesis HTN (hypertension) - Tobacco History Second Hand Smoke Exposure: No Tobacco Use In Past 30 Days: No Smoking Status: Former smoker Tobacco Type: Cigarettes - Alcohol History How Often Do You Have a Drink Containing Alcohol: Never - Substance Use History Substance History: No History of Abuse - Travel History Recent Travel in the [place] Within the Last 8 Weeks: No Recent Travel Out of the Country Within the Last 8 Weeks: No - Immunization History Tetanus Immunization: Unsure Hx Influenza Vaccine This Season: No Medications and Allergies Active Medications: Active Medications Al Hydroxide/Mg Hydroxide (Milk Of [place]) 30 ml PO Q12H PRN PRN Reason: Mild Constipation Albuterol (Duoneb Neb (Prn)) 1 ampul NEB Q4HR NEB PRN PRN Reason: SOB/WHEEZING Bisacodyl (Dulcolax Supp) 10 mg RECTAL DAILY PRN PRN Reason: SEVERE CONSITIPATION Dextrose (D50w Vial) 50 ml IV.PUSH UNSCH PRN PRN Reason: PER HYPOGLYCEMIA PROTOCOL Glimepiride (Amaryl) 1 mg PO BID REYNA Glucagon (Glucagon Inj) 1 mg OTHER PRN PRN PRN Reason: for Hypoglycemia Protocol Guaifenesin (Mucinex Er) 600 mg PO BID REYNA Azithromycin 500 mg/ Sodium (Chloride) 250 mls @ 250 mls/hr IV.SIG Q24H REYNA Ceftriaxone Sodium 1,000 mg/ (Sodium Chloride) 100 mls @ 200 mls/hr IV.SIG Q24H REYNA Sodium Chloride (Ns Inj) 1,000 mls @ 100 mls/hr IV.CONT .Q10H REYNA Last Admin: 10/16/18 00:07 Dose: 100 mls/hr Insulin Aspart (Novolog Insulin Correctional Sugar Inj) 0 unit SQ ACHS [facility]; Protocol Lactulose (Lactulose Liq) 30 ml PO DAILY PRN PRN Reason: SEVERE CONSITIPATION Ondansetron HCl (Zofran Inj) 4 mg IV.PUSH Q6H PRN PRN Reason: NAUSEA OR VOMITING Potassium Chloride (K-Dur) 20 meq PO ONCE ONE Stop: 10/16/18 08:37 Senna/Docusate Sodium (Izabel-Colace) 1 tab PO BID [facility] Sennosides (Senokot) 17.2 mg PO Q12H PRN PRN Reason: Moderate Constipation Sodium Chloride (Ns Flush) 2 ml IV.FLUSH BID [facility] Sodium Chloride (Ns Flush) 2 ml IV.FLUSH PRN PRN PRN Reason: FLUSH AFTER USING IV ACCESS Allergies Allergy/AdvReac Type Severity Reaction Status Date / Time clams Allergy Severe n/v Verified 10/15/18 19:27 oyster extract Allergy Severe n/v Verified 10/15/18 19:27 red dye Allergy Severe hives and Verified 10/15/18 19:27 swelling scallops Allergy Severe nausea and Verified 10/15/18 19:27 vomiting Home Medications Medication Instructions Recorded Confirmed Type amlodipine 5 mg PO DAILY 10/15/18 10/15/18 History bethanechol chloride 25 mg PO BID 10/15/18 10/15/18 History glimepiride 1 mg PO BID 10/15/18 10/15/18 History levothyroxine 112 mcg PO DAILY 10/15/18 10/15/18 History lovastatin 40 mg PO DAILY 10/15/18 10/15/18 History metformin 500 mg PO 10/15/18 History metoprolol succinate 10/15/18 History pantoprazole [Protonix] 10/15/18 History potassium bicarb-citric acid 10/15/18 History sucralfate 10/15/18 History telmisartan [Micardis] 40 mg PO DAILY 10/15/18 10/15/18 History Physical Exam Vital Signs / I&O: Vital Signs 10/15/18 17:20 10/15/18 19:00 10/16/18 00:15 Temperature 98.7 F 98.8 F Pulse Rate 88 72 67 Respiratory Rate 20 18 17 Blood Pressure 187/87 H 162/72 H 150/68 H Pulse Oximetry 96 99 94 L 10/16/18 00:51 10/16/18 02:20 10/16/18 04:01 Temperature 97.8 F Pulse Rate 66 66 76 Respiratory Rate 17 Blood Pressure 146/66 H Pulse Oximetry 93 L 10/16/18 04:21 10/16/18 08:00 Temperature 98.1 F 97.8 F Pulse Rate 72 67 Respiratory Rate 17 18 Blood Pressure 121/72 147/67 H Pulse Oximetry 94 L 91 L Intake & Output 10/15/18 10/16/18 10/16/18 18:59 06:59 18:59 Intake Total 850 / 850 Balance 850 / 850 Weight 68.039 kg 69.5 kg Intake: IV 850 / 850 Azithromycin Inj 500 MG In NS 250 / 250 Inj 250 ML @ 250 mls/hr IV.SIG ONCE ONE Rx#:[id number] NS Inj 500 ML @ Wide Open IV. 500 / 500 SIG BOLUS ONE Rx#:[id number] Rocephin Inj 1,000 MG In NS Inj 100 / 100 100 ML @ 200 mls/hr IV.SIG ONCE ONE Rx#:[id number] Oral 0 / 0 Other: # Voids 1 Date of Last Bowel Movement 10/15/18 # Bowel Movements 0 Weight On Admission 69.5 kg Neuro: Alert awake oriented x3 HEENT: Normocephalic atraumatic Neck: Supple Heart: S1-S2 Lungs: Clear to auscultation bilateral Abdomen: Soft nontender nondistended Vascular: palpable femoral pulses BL Laboratory Results - last 24 hr 10/15/18 10/15/18 10/15/18 18:30 18:30 18:30 WBC 21.2 H RBC 4.69 Hgb 13.0 Hct 39.5 MCV 84.3 MCH 27.8 MCHC 33.0 RDW 14.2 Plt Count 241 MPV 9.6 Neut % (Auto) 74.0 H Lymph % (Auto) 17.3 [place] % (Auto) 7.6 Eos % (Auto) 0.8 Baso % (Auto) 0.3 Neut # (Auto) 15.7 H Lymph # (Auto) 3.7 [place] # (Auto) 1.6 H Eos # (Auto) 0.2 Baso # (Auto) 0.1 WBC Differential . Differential Comment Auto diff final PT 10.7 INR 1.1 APTT 28.4 Sodium 139 Potassium 3.4 L Chloride 103 Carbon Dioxide 28.7 Anion Gap 7 BUN 13 Creatinine 0.71 Estimated GFR 80 L POC Glucose Random Glucose 108 H Lactic Acid Calcium 8.4 L Magnesium 1.6 Total Bilirubin 0.7 AST 12 L ALT 16 Alkaline Phosphatase 97 Total Protein 7.7 Albumin 3.6 Lipase 225 Urine Color Urine Clarity Urine pH Ur Specific [place] Urine Protein Urine Glucose (UA) Urine Ketones Urine Occult Blood Urine Nitrate Urine Bilirubin Urine Urobilinogen Ur Leukocyte Esterase Urine RBC Urine WBC Ur Squamous Epith Cells Micro UA Comment Ur Microscopic Review Urine Culture Comments 10/15/18 10/15/18 10/16/18 18:45 19:20 06:00 WBC 13.4 H RBC 4.21 Hgb 12.2 Hct 35.9 MCV 85.3 MCH 28.9 MCHC 33.8 RDW 14.0 Plt Count 182 MPV 9.4 Neut % (Auto) 69.2 Lymph % (Auto) 19.9 [place] % (Auto) 8.3 H Eos % (Auto) 2.3 Baso % (Auto) 0.3 Neut # (Auto) 9.3 H Lymph # (Auto) 2.7 [place] # (Auto) 1.1 H Eos # (Auto) 0.3 Baso # (Auto) 0.0 WBC Differential . Differential Comment Auto diff final PT INR APTT Sodium Potassium Chloride Carbon Dioxide Anion Gap BUN Creatinine Estimated GFR POC Glucose Random Glucose Lactic Acid 1.5 Calcium Magnesium Total Bilirubin AST ALT Alkaline Phosphatase Total Protein Albumin Lipase Urine Color Straw Urine Clarity Clear Urine pH 6.0 Ur Specific [place] 1.004 Urine Protein Negative Urine Glucose (UA) Negative Urine Ketones Negative Urine Occult Blood Negative Urine Nitrate Negative Urine Bilirubin Negative Urine Urobilinogen Less than 2 Ur Leukocyte Esterase Small H Urine RBC 1 Urine WBC 2 Ur Squamous Epith Cells 2 Micro UA Comment Culture not ind Ur Microscopic Review Not Reportable Urine Culture Comments Culture not ind 10/16/18 10/16/18 06:00 08:09 WBC RBC Hgb Hct MCV MCH MCHC RDW Plt Count MPV Neut % (Auto) Lymph % (Auto) [place] % (Auto) Eos % (Auto) Baso % (Auto) Neut # (Auto) Lymph # (Auto) [place] # (Auto) Eos # (Auto) Baso # (Auto) WBC Differential Differential Comment PT INR APTT Sodium 143 Potassium 3.3 L Chloride 108 H Carbon Dioxide 30.4 Anion Gap 5 BUN 9 Creatinine 0.52 Estimated GFR Greater than 89 POC Glucose 113 H Random Glucose 111 H Lactic Acid Calcium 7.8 L Magnesium Total Bilirubin 0.5 AST 10 L ALT 12 Alkaline Phosphatase 82 Total Protein 6.4 D Albumin 2.8 L D Lipase Urine Color Urine Clarity Urine pH Ur Specific [place] Urine Protein Urine Glucose (UA) Urine Ketones Urine Occult Blood Urine Nitrate Urine Bilirubin Urine Urobilinogen Ur Leukocyte Esterase Urine RBC Urine WBC Ur Squamous Epith Cells Micro UA Comment Ur Microscopic Review Urine Culture Comments Impressions Abdomen/Pelvis CT 10/15/18 18:12 CONCLUSION: There is a type II endovascular leak slightly worse since the prior study from 2015. Chest X-Ray 10/15/18 18:51 CONCLUSION: Left upper lobe parenchymal infiltrate and/or consolidation not present previously. Follow-up is recommended with repeat chest x-ray in 4-6 weeks after appropriate clinical therapy. Gallbladder Ultrasound 10/15/18 18:57 CONCLUSION: The liver is slightly echogenic which may be due to fatty infiltration and or hepatocellular dysfunction. Assessment and Plan - Assessment (1) Endoleak post endovascular aneurysm repair Code(s): T82.330A - Leakage of aortic (bifurcation) graft (replacement), initial encounter Status: Acute - Plan Stable type II endoleak No evidence of active extravasation. Continue with surveillance I will schedule outpatient follow-up outpatient follow-up with primary surgeon. Thank you for allowing us to participate in this patient care. If you have any questions please do not hesitate to call my cell phone Earnest Cleveland MD [phone] (1) Endoleak post endovascular aneurysm repair Qualifiers: Encounter type: initial encounter Qualified Code(s): T82.330A - Leakage of aortic (bifurcation) graft (replacement), initial encounter
[2018-10-16] MEDS: Senna/Docusate Sodium 8.6/50 MG Tablet PO SCH ×2 (09:35→21:31)
[2018-10-16] MEDS: guaiFENesin 600 MG ER Tablet PO SCH ×2 (09:35→21:30)
[2018-10-16] MEDS: Glimepiride 1 MG Tablet PO SCH ×2 (09:35→21:30)
[2018-10-16] MEDS: Levothyroxine 112 MCG Tablet PO SCH (10:48)
[2018-10-16] MEDS: amLODIPine 5 MG Tablet PO SCH (10:48)
[2018-10-16] MEDS: Metoprolol Tartrate 25 MG Tablet PO SCH (10:48)
--- NOTE | 2018-10-16 11:56 | ECG ---
Date Performed: 10/15/2018 Time Performed: 22:14:52 PTAGE: 78 years EKG: Sinus rhythm BORDERLINE ECG PREVIOUS TRACING :10/15/2018 @17.40 Since the previous tracing, no significant change noted DOCTOR: Adonay Ramírez Interpretating Date/Time 10/16/2018 11:55:20
--- NOTE | 2018-10-16 11:56 | ECG ---
Date Performed: 10/15/2018 Time Performed: 17:40:43 PTAGE: 78 years EKG: Sinus rhythm BORDERLINE ECG PREVIOUS TRACING : 11/28/2016 06.09 Since the previous tracing, no significant change noted DOCTOR: Adonay Ramírez Interpretating Date/Time 10/16/2018 11:54:49
--- NOTE | 2018-10-16 16:47 | P.PNIM ---
Subjective Interval history: Patient is seen lying in bed. Her daughter is at bedside. Patient tells me that her breathing is much better although she still is having some coughing and sputum production. No headache or dizziness. No fever or chills. She does continue to have abdominal pain which she says is primarily epigastric as well as just below her bellybutton. Notes that the pain is worse after eating and is particularly aggravated by cold water. She has not had any problems urinating. She does have intermittent episodes of constipation - encouraged to use stool softener and laxative as needed while hospitalized. Physical Exam Vital signs: Last Vital Signs Temp 98.3 F 10/16/18 16:00 Pulse 71 10/16/18 16:00 Resp 18 10/16/18 16:00 BP 123/64 10/16/18 16:00 Pulse Ox 93 L 10/16/18 16:00 Intake & Output 10/14/18 10/15/18 10/16/18 10/17/18 06:59 06:59 06:59 06:59 Intake Total 850 / 850 1000 / 1000 Balance 850 / 850 1000 / 1000 Weight 69.5 kg Narrative: GENERAL: Well-nourished, well-developed adult female in no obvious distress. SKIN: Warm and dry. HEAD: Atraumatic. Normocephalic. CARDIOVASCULAR: Regular rate and rhythm. RESPIRATORY: No accessory muscle use. Slight wheeze. Breath sounds equal bilaterally. Noted to have frequent unprovoked and productive cough. GASTROINTESTINAL: Abdomen obese, soft, diffusely tender but no guarding, non- distended. Positive bowel sounds. MUSCULOSKELETAL: Extremities without clubbing, cyanosis, or edema. No obvious deformities. NEUROLOGICAL: Awake and alert. No obvious cranial nerve deficits. Motor grossly within normal limits. Normal speech. PSYCHIATRIC: Appropriate mood and affect; insight and judgment good. Results Labs CBC & Chem 7: 10/16/18 06:00 10/16/18 06:00 Labs: Microbiology 10/15/18 19:25 Blood - Peripheral Aerobic Blood Culture - Preliminary No growth in 1 day 10/15/18 19:25 Blood - Peripheral Anaerobic Blood Culture - Preliminary No growth in 1 day 10/15/18 19:20 Blood - Peripheral Aerobic Blood Culture - Preliminary No growth in 1 day 10/15/18 19:20 Blood - Peripheral Anaerobic Blood Culture - Preliminary No growth in 1 day Imaging Imaging: Impressions Abdomen/Pelvis CT 10/15/18 18:12 CONCLUSION: There is a type II endovascular leak slightly worse since the prior study from 2016. Chest X-Ray 10/15/18 18:51 CONCLUSION: Left upper lobe parenchymal infiltrate and/or consolidation not present previously. Follow-up is recommended with repeat chest x-ray in 4-6 weeks after appropriate clinical therapy. Gallbladder Ultrasound 10/15/18 18:57 CONCLUSION: The liver is slightly echogenic which may be due to fatty infiltration and or hepatocellular dysfunction. Assessment and Plan (1) Endoleak post endovascular aneurysm repair: Code(s): T82.330A - Leakage of aortic (bifurcation) graft (replacement), initial encounter Status: Acute Plan Patient is a 78-year-old female with a past medical history of hypertension, AAA repair, gastroparesis and DM who presents to the emergency room with complaint of abdominal pain for the last 2 months. Incidental finding of pneumonia on x-ray as well as endoleak. Pneumonia/Sirs -WBC 21.2. Chest x-ray with left upper lobe infiltrate. Reported temp of 101 at home. -Continue Rocephin and Zithromax started in ED -Cultures drawn; monitor for sensitivity -Duo nebs, Mucinex Abdominal pain -Uncertain etiology; no significant findings on pelvis CT -May consider HIDA scan when respiratory function improves (questionable if could lay flat for 2 hours at this time). Endoleak post vascular aneurysm repair -Dr. Cleveland/vascular surgery consulted -no intervention indicated at this time; continue with surveillance DM -Consider gastroparesis as possible cause of abdominal pain -Sliding scale; hold home metformin DVT prophylaxis: SCD/teds Discharge planning: Likely home Progress Note: Quality VTE Deep Vein Thrombosis/Pulmonary Embolism Present on Admission: No _ (1) Endoleak post endovascular aneurysm repair Qualifiers: Encounter type: initial encounter Qualified Code(s): T82.330A - Leakage of aortic (bifurcation) graft (replacement), initial encounter
[2018-10-16] MEDS: Azithromycin Inj 500 MG in Sodium Chlor 0.9% Inj 250 ML IV.SIG SCH (21:30)
[2018-10-17] MEDS: Sod Chloride 0.9% Inj 1,000 ML IV.CONT SCH ×2 (05:09→14:40)
[2018-10-17 05:28] LABS: Baso % (Auto) 0.2 % (0.0-2.0); Eos # (Auto) 0.6 th/mm3 (0.0-0.4); Eos % (Auto) 5.2 % (0.0-4.0); Hematocrit 36.5 % (35.0-46.0); Hemoglobin 12.1 gm/dL (11.6-15.3); Lymph % (Auto) 25.1 % (9.0-44.0); Mean Corpuscular HGB Conc 33.2 % (32.0-36.0); Mean Corpuscular Hemoglobin 28.2 pg (27.0-34.0); Mean Corpuscular Volume 84.9 fL (80.0-100.0); Mean Platelet Volume 9.4 fL (7.0-11.0); Mono # (Auto) 1.2 th/mm3 (0.0-0.9); Neut % (Auto) 59.5 % (16.0-70.0); Platelet Count 200 th/mm3 (150-450); White Blood Count 11.8 th/mm3 (4.0-11.0)
[2018-10-17 05:53] LABS: Anion Gap 7 meq/L (5-15); Blood Urea Nitrogen 13 mg/dL (7-18); Calcium 8.4 mg/dL (8.5-10.1); Carbon Dioxide 27.7 meq/L (21.0-32.0); Chloride 110 meq/L (98-107); Glomerular Filtration Rate Greater Than 89 mL/min (>89); Glucose,Random 97 mg/dL (74-106); Magnesium 1.9 mg/dL (1.5-2.5); Potassium 3.5 meq/L (3.5-5.1); Sodium 145 meq/L (136-145)
[2018-10-17] MEDS: Glimepiride 1 MG Tablet PO SCH ×2 (09:11→20:59)
[2018-10-17] MEDS: guaiFENesin 600 MG ER Tablet PO SCH ×2 (09:11→20:59)
[2018-10-17] MEDS: Senna/Docusate Sodium 8.6/50 MG Tablet PO SCH ×2 (09:14→20:59)
[2018-10-17] MEDS: Metoprolol Tartrate 25 MG Tablet PO SCH (09:14)
[2018-10-17] MEDS: amLODIPine 5 MG Tablet PO SCH (09:14)
[2018-10-17] MEDS: Levothyroxine 112 MCG Tablet PO SCH (09:14)
[2018-10-17] MEDS: Insulin NovoLOG Aspart Correctional Sugar Inj SQ SCH ×4 (09:18→21:32)
--- NOTE | 2018-10-17 11:24 | P.PNVS ---
Subjective Subjective/Hospital Course: 78/F w/ a PMH of an infrarenal abdominal aneurysm status post endovascular aneurysm repair in 2016 Pt reports a Hx of an Endoleak since 2016 that has been under surveillance every 6M then recently yearly Pt does c/o abdominal pain for a duration of 2M Location of abdominal pain changes per pt - "sometimes pelvic region then sometimes LUQ/RUQ" Pt w/o complaints of acute abdominal/back pain Pt overall looks good and is w/o any complaints Objective Vital Signs / I&O: Vital Signs 10/16/18 12:00 10/16/18 16:00 10/16/18 20:07 Temperature 98.2 F 98.3 F Pulse Rate 67 71 68 Respiratory Rate 18 18 Blood Pressure 160/69 H 123/64 Pulse Oximetry 94 L 93 L 10/16/18 20:51 10/17/18 00:00 10/17/18 00:21 Temperature 98.2 F 98.3 F Pulse Rate 64 71 67 Respiratory Rate 17 18 Blood Pressure 147/65 H 122/65 Pulse Oximetry 94 L 93 L 10/17/18 03:45 10/17/18 03:52 10/17/18 08:00 Temperature 97.8 F 97.9 F Pulse Rate 61 58 L 77 Respiratory Rate 17 17 Blood Pressure 133/66 149/70 H Pulse Oximetry 94 L 91 L Intake & Output 10/16/18 10/17/18 10/17/18 18:59 06:59 18:59 Intake Total 1000 / 1000 2425 / 2425 1000 / 1000 Output Total 3 / 3 Balance 997 / 997 2425 / 2425 1000 / 1000 Weight 71.2 kg Intake: IV 1000 / 1000 1205 / 1205 1000 / 1000 NS Inj 1,000 ML @ 100 mls/hr IV 1000 / 1000 855 / 855 1000 / 1000 .CONT .Q10H REYNA Rx#:[id number] Azithromycin Inj 500 MG In NS 250 / 250 Inj 250 ML @ 250 mls/hr IV.SIG Q24H REYNA Rx#:[id number] Rocephin Inj 1,000 MG In NS Inj 100 / 100 100 ML @ 200 mls/hr IV.SIG Q24H REYNA Rx#:[id number] Oral 1220 / 1220 Output: Urine 3 / 3 Other: # Voids 1 Date of Last Bowel Movement 10/15/18 10/15/18 # Bowel Movements 0 Physical Exam: GENERAL: Alert in NAD, Speech clear SKIN: Warm and dry. CARDIOVASCULAR: Regular rate and rhythm without murmurs, gallops, or rubs. RESPIRATORY: Breath sounds equal bilaterally. No accessory muscle use. GASTROINTESTINAL: Abdomen soft, non-tender, nondistended. MUSCULOSKELETAL: No cyanosis, or edema. Laboratory Results - last 24 hr 10/16/18 10/16/18 10/16/18 12:13 17:05 20:56 WBC RBC Hgb Hct MCV MCH MCHC RDW Plt Count MPV Neut % (Auto) Lymph % (Auto) Brewster % (Auto) Eos % (Auto) Baso % (Auto) Neut # (Auto) Lymph # (Auto) Brewster # (Auto) Eos # (Auto) Baso # (Auto) WBC Differential Differential Comment Sodium Potassium Chloride Carbon Dioxide Anion Gap BUN Creatinine Estimated GFR POC Glucose 209 H 134 H 147 H Random Glucose Calcium Magnesium 10/17/18 10/17/18 04:52 04:52 WBC 11.8 H RBC 4.30 Hgb 12.1 Hct 36.5 MCV 84.9 MCH 28.2 MCHC 33.2 RDW 14.0 Plt Count 200 MPV 9.4 Neut % (Auto) 59.5 Lymph % (Auto) 25.1 Brewster % (Auto) 10.0 H Eos % (Auto) 5.2 H Baso % (Auto) 0.2 Neut # (Auto) 7.0 Lymph # (Auto) 3.0 Brewster # (Auto) 1.2 H Eos # (Auto) 0.6 H Baso # (Auto) 0.0 WBC Differential . Differential Comment Auto diff final Sodium 145 Potassium 3.5 Chloride 110 H Carbon Dioxide 27.7 Anion Gap 7 BUN 13 Creatinine 0.57 Estimated GFR Greater than 89 POC Glucose Random Glucose 97 Calcium 8.4 L Magnesium 1.9 Microbiology 10/15/18 19:25 Aerobic Blood Culture - Preliminary Blood - Peripheral No growth in 2 days Anaerobic Blood Culture - Preliminary No growth in 2 days 10/15/18 19:20 Aerobic Blood Culture - Preliminary Blood - Peripheral No growth in 2 days Anaerobic Blood Culture - Preliminary No growth in 2 days Impressions Abdomen/Pelvis CT 10/15/18 18:12 CONCLUSION: There is a type II endovascular leak slightly worse since the prior study from 2016. Chest X-Ray 10/15/18 18:51 CONCLUSION: Left upper lobe parenchymal infiltrate and/or consolidation not present previously. Follow-up is recommended with repeat chest x-ray in 4-6 weeks after appropriate clinical therapy. Gallbladder Ultrasound 10/15/18 18:57 CONCLUSION: The liver is slightly echogenic which may be due to fatty infiltration and or hepatocellular dysfunction. Assessment and Plan - Assessment (1) Endoleak post endovascular aneurysm repair Code(s): T82.330A - Leakage of aortic (bifurcation) graft (replacement), initial encounter Status: Acute - Plan 78/F w/ a Stable type II endoleak No evidence of active extravasation Plan Continue with surveillance Arranged out pt follow up in 4W with a surveillance CTA C/A/P Discussed and reviewed CT results and plan w/ pt Questions answered Carmen Hooper [facility] [phone] Discharge Planning: Pt clear for D/C from a vascular stand point Arranged out pt f/u (1) Endoleak post endovascular aneurysm repair Qualifiers: Encounter type: initial encounter Qualified Code(s): T82.330A - Leakage of aortic (bifurcation) graft (replacement), initial encounter
[2018-10-17] MEDS ORDERED: Glycerin Adult 2 GM Supp RECTAL ONE (13:50)
--- NOTE | 2018-10-17 16:44 | P.PNIM ---
Subjective Interval history: Patient is seen sitting up in bed. Daughter is at bedside. She tells me that her breathing is good and she is not feeling any respiratory distress. No chest pain. She does have diffuse abdominal pain that is worse after eating. Pain today is in the upper left quadrant primarily. She tells me that the pain frequently moves around and is not at all consistent. She is constipated. Urinating normally. No fever or chills. Physical Exam Vital signs: Last Vital Signs Temp 97.8 F 10/17/18 15:48 Pulse 67 10/17/18 15:48 Resp 17 10/17/18 15:48 BP 138/71 10/17/18 15:48 Pulse Ox 90 L 10/17/18 15:48 Intake & Output 10/15/18 10/16/18 10/17/18 10/18/18 06:59 06:59 06:59 06:59 Intake Total 850 / 850 3425 / 3425 1000 / 1000 Output Total 3 / 3 Balance 850 / 850 3422 / 3422 1000 / 1000 Weight 69.5 kg 71.2 kg Narrative: GENERAL: Well-nourished, well-developed adult female in no obvious distress. SKIN: Warm and dry. HEAD: Atraumatic. Normocephalic. CARDIOVASCULAR: Regular rate and rhythm. RESPIRATORY: No accessory muscle use. Clear. Breath sounds equal bilaterally. No cough today GASTROINTESTINAL: Abdomen obese, soft, diffusely tender but no guarding, non- distended. Positive bowel sounds. MUSCULOSKELETAL: Extremities without clubbing, cyanosis, or edema. No obvious deformities. NEUROLOGICAL: Awake and alert. No obvious cranial nerve deficits. Motor grossly within normal limits. Normal speech. PSYCHIATRIC: Appropriate mood and affect; insight and judgment good. Results Labs CBC & Chem 7: 10/17/18 04:52 10/17/18 04:52 Labs: Microbiology 10/15/18 19:25 Blood - Peripheral Aerobic Blood Culture - Preliminary No growth in 2 days 10/15/18 19:25 Blood - Peripheral Anaerobic Blood Culture - Preliminary No growth in 2 days 10/15/18 19:20 Blood - Peripheral Aerobic Blood Culture - Preliminary No growth in 2 days 10/15/18 19:20 Blood - Peripheral Anaerobic Blood Culture - Preliminary No growth in 2 days Assessment and Plan (1) Endoleak post endovascular aneurysm repair: Code(s): T82.330A - Leakage of aortic (bifurcation) graft (replacement), initial encounter Status: Acute Plan Patient is a 78-year-old female with a past medical history of hypertension, AAA repair, gastroparesis and DM who presents to the emergency room with complaint of abdominal pain for the last 2 months. Incidental finding of pneumonia on x-ray as well as endoleak. Pneumonia/Sirs -WBC 21.2. Chest x-ray with left upper lobe infiltrate. Reported temp of 101 at home. -Continue Rocephin and Zithromax started in ED -Cultures drawn; monitor for sensitivity; no growth to date; WBC trending down and now almost WNL. -Duo nebs, Mucinex Abdominal pain -Uncertain etiology; no significant findings on pelvis CT -Pain is diffuse and variable. Patient encouraged to keep food diary as well as diary of symptoms. Tells me that she has appointment with gastroenterology on November 03, 2018 and plans to follow-up with them. Endoleak post vascular aneurysm repair -Dr. Cleveland/vascular surgery consulted -no intervention indicated at this time; continue with surveillance as outpatient DM -Consider gastroparesis as possible cause of abdominal pain -Sliding scale; hold home metformin DVT prophylaxis: SCD/teds Discharge planning: Likely home tomorrow on oral antibiotics Progress Note: Quality VTE Deep Vein Thrombosis/Pulmonary Embolism Present on Admission: No _ (1) Endoleak post endovascular aneurysm repair Qualifiers: Encounter type: initial encounter Qualified Code(s): T82.330A - Leakage of aortic (bifurcation) graft (replacement), initial encounter
[2018-10-17] MEDS ORDERED: Timolol 0.5% Drops 5 ML Bottle LEFT EYE SCH (21:00)
[2018-10-17] MEDS: Azithromycin Inj 500 MG in Sodium Chlor 0.9% Inj 250 ML IV.SIG SCH (21:00)
[2018-10-18] MEDS: Insulin NovoLOG Aspart Correctional Sugar Inj SQ SCH (07:34)
--- NOTE | 2018-10-18 08:18 | P.PNIM ---
Subjective Interval history: Patient is seen sitting up on side of bed. She tells me that she is doing very well and home if possible today. No chest pain or shortness of breath. No cough or phlegm. No fever or chills. No nausea vomiting or diarrhea. Physical Exam Vital signs: Last Vital Signs Temp 98.1 F 10/18/18 04:30 Pulse 60 10/18/18 07:00 Resp 18 10/18/18 04:30 BP 135/61 10/18/18 04:30 Pulse Ox 92 L 10/18/18 04:30 Intake & Output 10/16/18 10/17/18 10/18/18 10/19/18 06:59 06:59 06:59 06:59 Intake Total 850 / 850 3425 / 3425 2210 / 2210 Output Total 3 / 3 Balance 850 / 850 3422 / 3422 2210 / 2210 Weight 69.5 kg 71.2 kg 71.1 kg Narrative: GENERAL: Well-nourished, well-developed adult female in no obvious distress. SKIN: Warm and dry. HEAD: Atraumatic. Normocephalic. CARDIOVASCULAR: Regular rate and rhythm. RESPIRATORY: No accessory muscle use. Clear. Breath sounds equal bilaterally. No cough today GASTROINTESTINAL: Abdomen obese, soft, diffusely tender but no guarding, non- distended. Positive bowel sounds. MUSCULOSKELETAL: Extremities without clubbing, cyanosis, or edema. No obvious deformities. NEUROLOGICAL: Awake and alert. No obvious cranial nerve deficits. Motor grossly within normal limits. Normal speech. PSYCHIATRIC: Appropriate mood and affect; insight and judgment good. Results Labs CBC & Chem 7: 10/17/18 04:52 10/17/18 04:52 Labs: Microbiology 10/15/18 19:25 Blood - Peripheral Aerobic Blood Culture - Preliminary No growth in 2 days 10/15/18 19:25 Blood - Peripheral Anaerobic Blood Culture - Preliminary No growth in 2 days 10/15/18 19:20 Blood - Peripheral Aerobic Blood Culture - Preliminary No growth in 2 days 10/15/18 19:20 Blood - Peripheral Anaerobic Blood Culture - Preliminary No growth in 2 days Assessment and Plan (1) Endoleak post endovascular aneurysm repair: Code(s): T82.330A - Leakage of aortic (bifurcation) graft (replacement), initial encounter Status: Acute Plan Patient is a 78-year-old female with a past medical history of hypertension, AAA repair, gastroparesis and DM who presents to the emergency room with complaint of abdominal pain for the last 2 months. Incidental finding of pneumonia on x-ray as well as endoleak. Pneumonia/Sirs -WBC 21.2. Chest x-ray with left upper lobe infiltrate. Reported temp of 101 at home. -Continue Rocephin and Zithromax started in ED -will discharge on equivalent orals -Cultures drawn; monitor for sensitivity; no growth to date; WBC trending down and now almost WNL. -Duo nebs, Mucinex Abdominal pain -Uncertain etiology; no significant findings on pelvis CT -Pain is diffuse and variable. Patient encouraged to keep food diary as well as diary of symptoms. Tells me that she has appointment with gastroenterology on November 03, 2018 and plans to follow-up with them. Endoleak post vascular aneurysm repair -Dr. Cleveland/vascular surgery consulted -no intervention indicated at this time; continue with surveillance as outpatient DM -Consider gastroparesis as possible cause of abdominal pain -Sliding scale; hold home metformin DVT prophylaxis: SCD/teds Discharge planning: Home today Progress Note: Quality VTE Deep Vein Thrombosis/Pulmonary Embolism Present on Admission: No _ (1) Endoleak post endovascular aneurysm repair Qualifiers: Encounter type: initial encounter Qualified Code(s): T82.330A - Leakage of aortic (bifurcation) graft (replacement), initial encounter
--- NOTE | 2018-10-18 08:23 | P.DS ---
DS: Providers Date of admission: 10/15/18 21:09 Primary care physician: Kem Estrada MD, PhD Consults: 10/15/18 21:06 Consult to Vascular Surgery Routine Consulting Provider: Earnest Cleveland [employer] Lead:: Earnest Cleveland Patient known to:: Earnest Cleveland Reason for Consultation: AAA, Endoleak CONSULT FOR AM Spoke with:: ADDED TO LIST - COURTESY CALL IN MORNING Date Notified:: 10/15/18 Time Notified:: 23:05 Ordering Provider: RITO Brief History from admission: This is a 78-year-old female with a PMH of HTN, AAA Repair, Gastroparesis and DM who presents the ER with complaints of abdominal pain x2 months. Pain is in lower abdomen, intermittent, moderate, 6/10, w/ radiation to back. Notes episodes of nausea, no vomiting, no diarrhea since yesterday in addition to fever of 101.0 today. Denies cough, chest pain, SOB, or recent sick contacts. +decreased PO intake for the last 1wk. On arrival, BP 187/87, HR 88, O2 sat 96 % on RA, Afebrile. WBC 21.2. INR 1.1. Chemistry essentially unremarkable except for GFR 80. Lactic Acid 1.5. UA negative for UTI. CXR left upper lobe infiltrate. He Abdomen/Pelvis type II endovascular leak slightly worse since study from 2016. Gallbladder US slightly echogenic liver. Pt reports being aware of endoleak "since I had the surgery". Dr. Cleveland consulted, no emergent intervention needed, will eval in am. S/p Rocephin/Zithro for PNA. DS: Diagnosis Discharge Diagnosis (1) Endoleak post endovascular aneurysm repair: Status: Chronic (2) Pneumonia: Status: Acute (3) SIRS (systemic inflammatory response syndrome): Status: Resolved (4) Abdominal pain: Status: Chronic (5) DM (diabetes mellitus): Status: Chronic DS: Summary Patient is a 78-year-old female with a past medical history of hypertension, AAA repair, gastroparesis and DM who presents to the emergency room with complaint of abdominal pain for the last 2 months. Incidental finding of pneumonia on x-ray as well as endoleak. Pneumonia/Sirs -WBC 21.2. Chest x-ray with left upper lobe infiltrate. Reported temp of 101 at home. Improved. -Treated with Rocephin and Zithromax; discharged with equivalent orals. -Cultures drawn; monitor for sensitivity; no growth to date; WBC trending down and now almost WNL. Afebrile since admit Abdominal pain -chronic; stable -Uncertain etiology; no significant findings on pelvis CT -Pain is diffuse and variable. Patient encouraged to keep food diary as well as diary of symptoms. Tells me that she has appointment with gastroenterology on November 03, 2018 and plans to follow-up with them. Endoleak post vascular aneurysm repair -chronic; stable -Dr. Cleveland/vascular surgery consulted -no intervention indicated at this time; continue with surveillance as outpatient DM; chronic; stable -Consider gastroparesis as possible cause of abdominal pain -Resume home metformin at discharge Time Spent with Patient Total time spent providing and/or coordinating discharge services: <30 min Quality: VTE Deep Vein Thrombosis/Pulmonary Embolism Present on Admission: No Exam Narrative Exam Narrative: Narrative: GENERAL: Well-nourished, well-developed adult female in no obvious distress. SKIN: Warm and dry. HEAD: Atraumatic. Normocephalic. CARDIOVASCULAR: Regular rate and rhythm. RESPIRATORY: No accessory muscle use. Clear. Breath sounds equal bilaterally. No cough today GASTROINTESTINAL: Abdomen obese, soft, diffusely tender but no guarding, non- distended. Positive bowel sounds. MUSCULOSKELETAL: Extremities without clubbing, cyanosis, or edema. No obvious deformities. NEUROLOGICAL: Awake and alert. No obvious cranial nerve deficits. Motor grossly within normal limits. Normal speech. PSYCHIATRIC: Appropriate mood and affect; insight and judgment good. Results Labs on day of discharge: Labs from last 24 hours 10/18/18 10/17/18 07:32 20:57 POC Glucose 103 188 H Preliminary micro results at discharge 10/15/18 19:25 Aerobic Blood Culture - Preliminary Blood - Peripheral No growth in 2 days Anaerobic Blood Culture - Preliminary No growth in 2 days 10/15/18 19:20 Aerobic Blood Culture - Preliminary Blood - Peripheral No growth in 2 days Anaerobic Blood Culture - Preliminary No growth in 2 days Impressions ITS Impressions Abdomen/Pelvis CT 10/15/18 18:12 CONCLUSION: There is a type II endovascular leak slightly worse since the prior study from 2016. Chest X-Ray 10/15/18 18:51 CONCLUSION: Left upper lobe parenchymal infiltrate and/or consolidation not present previously. Follow-up is recommended with repeat chest x-ray in 4-6 weeks after appropriate clinical therapy. Gallbladder Ultrasound 10/15/18 18:57 CONCLUSION: The liver is slightly echogenic which may be due to fatty infiltration and or hepatocellular dysfunction. Discharge Plan Discharge Disposition Patient Disposition: 01 Discharge Home Discharge Condition Condition: Stable Discharge Order Discharge Orders: Discharge Order (Routine); Ordered 10/18/18 Ordered By: Arlen Bonilla Vascular Surgery Clear for Discharge (Routine); Ordered 10/17/18 Ordered By: Carmen Hooper ED Use Only Admit Order (Routine); Ordered 10/15/18 Ordered By: Roxie Farrar Discharge Details Anticipated Discharge Date: 10/18/18 Diagnosis: Pneumonia, Endoleak post endovascular aneurysm repair, SIRS (systemic inflammatory response syndrome) Physicians Team ED Provider: Angelica Connors ED Midlevel Provider: Roxie Farrar Primary Care Provider: Kem Estrada Attending Provider: Halley Whitman Other Providers: Earnest Cleveland Rxs /Orders / Referrals /Forms Prescriptions: New azithromycin 250 mg Tablet 250 mg PO Q24H Qty: 4 RF: 0 cefuroxime axetil 500 mg Tablet 500 mg PO Q12HR Qty: 16 RF: 0 Continue metformin 500 mg Tablet 500 mg PO BID RF: 0 amlodipine 5 mg Tablet 5 mg PO DAILY RF: 0 bethanechol chloride 25 mg Tablet 25 mg PO BID RF: 0 pantoprazole [Protonix] 40 mg Tablet,Delayed Release (Dr/Ec) 40 mg PO DAILY RF: 0 telmisartan [Micardis] 40 mg Tablet 40 mg PO DAILY RF: 0 potassium bicarb-citric acid 10 mEq Tablet, Effervescent RF: 0 levothyroxine 112 mcg Capsule 112 mcg PO DAILY RF: 0 sucralfate 1 gram Tablet PRN RF: 0 lovastatin 40 mg Tablet 40 mg PO DAILY RF: 0 glimepiride 1 mg Tablet 1 mg PO BID RF: 0 metoprolol succinate 25 mg Cap,Sprinkle,Er 24hr Dose Pack RF: 0 metoprolol tartrate 25 mg tablet 25 mg PO DAILY RF: 0 Aspirin Childrens 81 mg PO DAILY RF: 0 potassium chloride [K-Tab] 10 mEq Tablet Extended Release 10 meq PO DAILY RF: 0 telmisartan [Micardis] 40 mg Tablet 40 mg PO DAILY RF: 0 Multi-Vitamin HP/Minerals RF: 0 timolol maleate [Timoptic] 0.5 % Drops 1 drops ophthalmic (eye) HS RF: 0 Referrals: Pankaj Qiu MD [Physician] - See Instructions (Your follow up appointment with a CTA C/A/P is scheduled on 11/18/18 at 10:30 Please obtain your CTA prior to your follow up appointment ) Kem Estrada MD, PhD [Primary Care Provider] - See Instructions Stand Alone Forms: Work Release/Restrictions Discharge Instructions Patient Printed Instructions: Bacterial Pneumonia (GEN), How to Use an Incentive Spirometer (GEN) Discharge Interventions Interventions: Discharge Planning - Case Management Last Done: 10/16/18 12:11 Status ED Status: Left Department
[2018-10-18] MEDS: Senna/Docusate Sodium 8.6/50 MG Tablet PO SCH (08:30)
[2018-10-18] MEDS: Metoprolol Tartrate 25 MG Tablet PO SCH (08:30)
[2018-10-18] MEDS: Levothyroxine 112 MCG Tablet PO SCH (08:30)
[2018-10-18] MEDS: guaiFENesin 600 MG ER Tablet PO SCH (08:30)
[2018-10-18] MEDS: Glimepiride 1 MG Tablet PO SCH (08:30)
[2018-10-18] MEDS: amLODIPine 5 MG Tablet PO SCH (08:32)
[2018-10-18 09:00] VITALS: BP 159/73; PULSE 64; RESP 19; TEMP 98.2; O2SAT 97
[2018-10-18] MEDS ORDERED: Azithromycin 250 MG Tablet PO SCH (21:00)
== END 2018-10-18 10:33 | disposition home or self-care (01) ==
LOC: NEPE 17:14 → NEDA 21:09 → N06 10-16 00:35
PROVIDERS: ADMIT Hospitalist; ATTEND Hospitalist
DX: Z91.041 Radiographic dye allergy status; I10 Essential (primary) hypertension; Y83.2 Surgical operation with anastomosis, bypass or graft as the cause of abnormal reaction of the patient, or of later complication, without mention of misadventure at the time of the procedure; K59.00 Constipation, unspecified; J18.9 Pneumonia, unspecified organism; K31.84 Gastroparesis; T82.330A Leakage of aortic (bifurcation) graft (replacement), initial encounter; Z79.84 Long term (current) use of oral hypoglycemic drugs; E11.43 Type 2 diabetes mellitus with diabetic autonomic (poly)neuropathy

== ENCOUNTER 2018-12-18 13:15 | Inpatient (IN) ==
[2018-12-18] MEDS ORDERED: Sod Chloride 0.9% Inj 1,000 ML IV.SIG ONE (13:48)
[2018-12-18] MEDS ORDERED: Morphine Inj 4 MG/ML Vial IV.PUSH ONE (13:48)
[2018-12-18 14:25] LABS: Baso # (Auto) 0.1 th/mm3 (0.0-0.2); Baso % (Auto) 0.6 % (0.0-2.0); Eos # (Auto) 0.2 th/mm3 (0.0-0.4); Eos % (Auto) 1.7 % (0.0-4.0); Lymph # (Auto) 2.4 th/mm3 (1.0-4.8); Lymph % (Auto) 17.2 % (9.0-44.0); Mean Corpuscular HGB Conc 33.3 % (32.0-36.0); Mean Corpuscular Hemoglobin 27.5 pg (27.0-34.0); Mean Corpuscular Volume 82.6 fL (80.0-100.0); Mean Platelet Volume 9.9 fL (7.0-11.0); Mono # (Auto) 1.1 th/mm3 (0.0-0.9); Mono % (Auto) 7.8 % (0.0-8.0); Neut # (Auto) 10.3 th/mm3 (1.8-7.7); Neut % (Auto) 72.7 % (16.0-70.0); Platelet Count 272 th/mm3 (150-450); Red Blood Count 5.09 mil/mm3 (4.00-5.30); Red Cell Distribution Width 14.4 % (11.6-17.2); White Blood Count 14.1 th/mm3 (4.0-11.0)
--- NOTE | 2018-12-18 14:25 | ED ---
HPI General Chief Complaint: Abdominal Pain Stated Complaint: Abdominal Pain Time Seen by Provider: 12/18/18 13:28 Source: patient and RN notes reviewed Limitations: no limitations History of Present Illness HPI narrative: 78-year-old female presents to the emergency department for evaluation of epigastric, periumbilical abdominal pain. Patient states she has had it for 4-5 months, but has been progressively worsening. She states she was here in October was diagnosed with pneumonia. She states that she is now vomiting starting today and has not been eating for the past week. Her daughter at bedside provides much of the history. Patient states she has CTA done on November [address] scan done in October as well. Patient recently had colonoscopy/endoscopy by Dr. Ruiz on December 09, 2018. I read Dr. Marrero's note from December 02, 2018 which showed patient had a CT angiogram dated 11/01. 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 Patient states she is due to have procedure on Wednesday with Dr. Marrero, angiogram with possible stent placement in the celiac and SMA. Patient reports history of diabetes, hypertension, orthostatic hypotension, gastroparesis, AAA repair, cardiac stent , hysterectomy. She states she is not any anticoagulants, takes aspirin only. Moderate severity. MD complaint: Reports abdominal pain Onset (ago): month(s) (4-5) Pain Consistency: constant Location: Reports periumbilical and epigastric Severity: moderate Severity scale (1-10): 8 Quality: Reports stabbing and aching Radiation: Reports none Relieving factors: nothing Exacerbating factors: nothing Context: Reports history of similar episodes Associated symptoms: Reports nausea, vomiting, diarrhea (had diarrhea last night , none today) and anorexia; Denies fever, chills, hematemesis, hematochezia and syncope Related Data Home Medications Medication Instructions Recorded Confirmed amlodipine 5 mg PO DAILY 10/15/18 12/18/18 bethanechol chloride 12.5 mg PO BID 10/15/18 12/18/18 glimepiride 1 mg PO BID 10/15/18 12/18/18 levothyroxine 112 mcg PO DAILY 10/15/18 12/18/18 lovastatin 40 mg PO DAILY 10/15/18 12/18/18 metformin 500 mg PO BID 10/15/18 12/18/18 metoprolol succinate 25 mg PO DAILY 10/15/18 12/18/18 Aspirin Childrens 81 mg PO DAILY 10/16/18 12/18/18 Multi-Vitamin HP/Minerals 1 tab PO DAILY 10/16/18 12/18/18 potassium chloride [K-Tab] 10 meq PO DAILY 10/16/18 12/18/18 telmisartan [Micardis] 40 mg PO DAILY 10/16/18 12/18/18 timolol maleate [Timoptic] 1 drops OPHTHALMIC (EYE) HS 10/16/18 12/18/18 cyanocobalamin (vitamin B-12) 1,000 mcg PO DAILY 12/02/18 12/18/18 [Vitamin B-12] omeprazole 40 mg PO DAILY 12/02/18 12/18/18 Allergies Allergy/AdvReac Type Severity Reaction Status Date / Time clams Allergy Severe n/v Verified 12/02/18 15:13 oyster extract Allergy Severe n/v Verified 12/02/18 15:13 red dye Allergy Severe hives and Verified 12/02/18 15:13 swelling scallops Allergy Severe nausea and Verified 12/02/18 15:13 vomiting shellfish derived Allergy Nausea/Vomi Verified 12/02/18 15:13 ting Review of Systems ROS: all other systems reviewed are negative [facility] Medical History Medical History Coronary artery disease (Acute) History of hysterectomy (Acute) Hypothyroidism (Acute) Orthostatic hypotension (Acute) Sleep apnea (Acute) Vitamin B12 deficiency (Acute) Aortic aneurysm and dissection (Acute) Diabetes (Acute) Gastroparesis (Acute) HTN (hypertension) (Acute) Hypercholesterolemia (Acute) Surgical History Surgical History History of arthroscopic knee surgery (Acute) History of cataract extraction (Acute) History of carpal tunnel surgery (Acute) History of endovascular stent graft for abdominal aortic aneurysm (AAA) (Acute) Hx of tonsillectomy (Acute) Family History Family History Other No significant family history Social History Social History Substance History: No History of Abuse Second Hand Smoke Exposure: No Smoking Status: Former smoker (Quit 25 years ago, used to smoke 2-3 packs per day ) Tobacco Type: Cigarettes How Often Do You Have a Drink Containing Alcohol: Never Hx Recent Travel: No Recent Travel in [facility] within the Last 8 Weeks: No Recent Out of Country Travel within the Last 8 Weeks: No Immunization History Tetanus Immunization: Unsure Exam Narrative Exam Narrative: GENERAL: Well-nourished, well-developed elderly female patient, appears uncomfortable SKIN: Focused skin assessment warm/dry. HEAD: Normocephalic. Atraumatic EYES: No scleral icterus. No injection or drainage. NECK: Supple, trachea midline. No JVD or lymphadenopathy. CARDIOVASCULAR: Regular rate and rhythm without murmurs, gallops, or rubs. RESPIRATORY: Breath sounds equal bilaterally. No accessory muscle use. Lung sounds are clear to auscultation GASTROINTESTINAL: Abdomen soft and nondistended. Patient is tender in the epigastric/periumbilical regions MUSCULOSKELETAL: No cyanosis, or edema. BACK: Nontender without obvious deformity. No CVA tenderness. Course Initial Documented Vital Signs Temperature 97.9 F 12/18/18 13:16 Pulse Rate 96 H 12/18/18 13:16 Respiratory Rate 20 12/18/18 13:16 Blood Pressure 156/75 H 12/18/18 13:16 Pulse Oximetry 97 12/18/18 13:16 Last Documented Vital Signs Temperature 98.5 F 12/19/18 08:00 Pulse Rate 62 12/19/18 08:00 Respiratory Rate 20 12/19/18 08:00 Blood Pressure 130/67 12/19/18 08:00 Pulse Oximetry 92 L 12/19/18 08:00 Medical Decision Making SCOTT Attestation SCOTT supervised visit: Yes Attestation: I, Dr. Kilgore, have reviewed the advance practice practitioner's documentation and am in agreement, met with the patient face to face, made the diagnosis, and the medical decision making was done by me. *My assessment and Findings: Abdominal pain. Possible ischemic colitis. MDM Narrative Medical decision making narrative: 78-year-old female presents to the emergency department for evaluation of worsening abdominal pain, vomiting, decreased appetite. She appears uncomfortable on exam. EKG, CBC, CMP, lipase, magnesium , CK, troponin, lactic acid, PTT, PT/INR, UA, chest x-ray ordered and pending. CT of the abdomen/pelvis with IV contrast is ordered and pending. Patient is given normal saline 1 L IV bolus, morphine 4 mg IV, Zofran 4 mg IV. EKG shows sinus rhythm, heart rate 67, no acute ST changes. CBC shows leukocytosis 14.1. CMP shows hyperglycemia 196. Lipase is 257. Magnesium is 1.5. CK is 79. Troponin is less than 0.02. Lactic acid is 3.0. PTT is 26.2. PT/INR is 10.4/1.0. Chest x-ray shows no acute findings, mild cardiac enlargement, aortic endograft present in the abdomen. CT of the abdomen/pelvis shows No acute findings on abdomen and pelvic CT; Status post endovascular repair of 5.5 cm abdominal aortic aneurysm with stable type II endoleak compared with November 14, 2018. Patient remains uncomfortable the emergency department. Patient is due to have stent placed in the celiac and SMA by Dr. Marrero on Wednesday. Patient does not want to go home and is scared to go home. Patient will be admitted for abdominal pain, lactic acidosis. Medical Screen Exam Complete: Yes Emergency Medical Condition: Yes Differential Diagnosis Differential Diagnosis: celiac/SMA stenosis vs. gastritis vs. pancreatitis vs. diverticulitis vs. UTI vs. pyelonephritis Medical Records Medical records reviewed: Yes I reviewed the patient's medical records. Lab Data Result diagrams: 12/18/18 13:50 12/18/18 13:50 Lab Results 12/18/18 12/18/18 12/18/18 Range/Units 13:50 13:50 13:50 WBC 14.1 H (4.0-11.0) th/mm3 RBC 5.09 (4.00-5.30) mil/mm3 Hgb 14.0 (11.6-15.3) gm/dL Hct 42.0 (35.0-46.0) % MCV 82.6 (80.0-100.0) fL MCH 27.5 (27.0-34.0) pg MCHC 33.3 (32.0-36.0) % RDW 14.4 (11.6-17.2) % Plt Count 272 (150-450) th/mm3 MPV 9.9 (7.0-11.0) fL Neut % (Auto) 72.7 H (16.0-70.0) % Lymph % (Auto) 17.2 (9.0-44.0) % [place] % (Auto) 7.8 (0.0-8.0) % Eos % (Auto) 1.7 (0.0-4.0) % Baso % (Auto) 0.6 (0.0-2.0) % Neut # (Auto) 10.3 H (1.8-7.7) th/mm3 Lymph # (Auto) 2.4 (1.0-4.8) th/mm3 [place] # (Auto) 1.1 H (0.0-0.9) th/mm3 Eos # (Auto) 0.2 (0.0-0.4) th/mm3 Baso # (Auto) 0.1 (0.0-0.2) th/mm3 WBC Differential . Differential Comment Auto diff final PT 10.4 (9.8-11.6) sec INR 1.0 Ratio APTT 26.2 (23.4-31.7) sec Sodium 138 (136-145) meq/L Potassium 4.0 (3.5-5.1) meq/L Chloride 103 (98-107) meq/L Carbon Dioxide 25.6 (21.0-32.0) meq/L Anion Gap 9 (5-15) meq/L BUN 14 (7-18) mg/dL Creatinine 0.78 (0.50-1.00) mg/dL Estimated GFR 72 L (>89) mL/min POC Glucose (68-110) mg/dl Random Glucose 196 H (74-106) mg/dL Lactic Acid (0.4-2.0) mmol/L Calcium 9.0 (8.5-10.1) mg/dL Magnesium 1.5 (1.5-2.5) mg/dL Total Bilirubin 0.6 (0.2-1.0) mg/dL AST 18 (15-37) U/L ALT 16 (10-53) U/L Alkaline Phosphatase 101 (45-117) U/L Total Creatine Kinase 79 (26-192) U/L Troponin I Less than 0.02 L (0.02-0.05) ng/mL Total Protein 8.0 (6.4-8.2) g/dL Albumin 3.7 (3.4-5.0) g/dL Lipase 257 (73-393) U/L Urine Color (Yellw/Straw) Urine Clarity (Clear) Urine pH (5.0-8.5) Ur Specific [place] (1.002-1.035) Urine Protein (Neg-Trace) mg/dL Urine Glucose (UA) (Negative) mg/dL Urine Ketones (Negative) mg/dL Urine Occult Blood (Negative) Urine Nitrate (Negative) Urine Bilirubin (Negative) Urine Urobilinogen (Less than 2) mg/dL Ur Leukocyte Esterase (Negative) Urine RBC (0-3) /hpf Urine WBC (0-5) /hpf Ur Squamous Epith Cells (0-5) /hpf Urine Mucus (Occasional) /lpf Micro UA Comment Ur Microscopic Review Urine Culture Comments 12/18/18 12/18/18 12/18/18 Range/Units 13:50 16:00 16:47 WBC (4.0-11.0) th/mm3 RBC (4.00-5.30) mil/mm3 Hgb (11.6-15.3) gm/dL Hct (35.0-46.0) % MCV (80.0-100.0) fL MCH (27.0-34.0) pg MCHC (32.0-36.0) % RDW (11.6-17.2) % Plt Count (150-450) th/mm3 MPV (7.0-11.0) fL Neut % (Auto) (16.0-70.0) % Lymph % (Auto) (9.0-44.0) % Ro[place] % (Auto) (0.0-8.0) % Eos % (Auto) (0.0-4.0) % Baso % (Auto) (0.0-2.0) % Neut # (Auto) (1.8-7.7) th/mm3 Lymph # (Auto) (1.0-4.8) th/mm3 Roane # (Auto) (0.0-0.9) th/mm3 Eos # (Auto) (0.0-0.4) th/mm3 Baso # (Auto) (0.0-0.2) th/mm3 WBC Differential Differential Comment PT (9.8-11.6) sec INR Ratio APTT (23.4-31.7) sec Sodium (136-145) meq/L Potassium (3.5-5.1) meq/L Chloride (98-107) meq/L Carbon Dioxide (21.0-32.0) meq/L Anion Gap (5-15) meq/L BUN (7-18) mg/dL Creatinine (0.50-1.00) mg/dL Estimated GFR (>89) mL/min POC Glucose (68-110) mg/dl Random Glucose (74-106) mg/dL Lactic Acid 3.0 H 1.7 (0.4-2.0) mmol/L Calcium (8.5-10.1) mg/dL Magnesium (1.5-2.5) mg/dL Total Bilirubin (0.2-1.0) mg/dL AST (15-37) U/L ALT (10-53) U/L Alkaline Phosphatase (45-117) U/L Total Creatine Kinase (26-192) U/L Troponin I (0.02-0.05) ng/mL Total Protein (6.4-8.2) g/dL Albumin (3.4-5.0) g/dL Lipase (73-393) U/L Urine Color Yellow (Yellw/Straw) Urine Clarity Hazy H (Clear) Urine pH 5.0 (5.0-8.5) Ur Specific [place] 1.015 (1.002-1.035) Urine Protein Negative (Neg-Trace) mg/dL Urine Glucose (UA) Negative (Negative) mg/dL Urine Ketones Negative (Negative) mg/dL Urine Occult Blood Small H (Negative) Urine Nitrate Negative (Negative) Urine Bilirubin Negative (Negative) Urine Urobilinogen Less than 2 (Less than 2) mg/dL Ur Leukocyte Esterase Small H (Negative) Urine RBC 1 (0-3) /hpf Urine WBC 2 (0-5) /hpf Ur Squamous Epith Cells 7 (0-5) /hpf Urine Mucus Few H (Occasional) /lpf Micro UA Comment Culture not ind Ur Microscopic Review Not Reportable Urine Culture Comments Culture not ind 12/18/18 Range/Units 20:03 WBC (4.0-11.0) th/mm3 RBC (4.00-5.30) mil/mm3 Hgb (11.6-15.3) gm/dL Hct (35.0-46.0) % MCV (80.0-100.0) fL MCH (27.0-34.0) pg MCHC (32.0-36.0) % RDW (11.6-17.2) % Plt Count (150-450) th/mm3 MPV (7.0-11.0) fL Neut % (Auto) (16.0-70.0) % Lymph % (Auto) (9.0-44.0) % [place] % (Auto) (0.0-8.0) % Eos % (Auto) (0.0-4.0) % Baso % (Auto) (0.0-2.0) % Neut # (Auto) (1.8-7.7) th/mm3 Lymph # (Auto) (1.0-4.8) th/mm3 [place] # (Auto) (0.0-0.9) th/mm3 Eos # (Auto) (0.0-0.4) th/mm3 Baso # (Auto) (0.0-0.2) th/mm3 WBC Differential Differential Comment PT (9.8-11.6) sec INR Ratio APTT (23.4-31.7) sec Sodium (136-145) meq/L Potassium (3.5-5.1) meq/L Chloride (98-107) meq/L Carbon Dioxide (21.0-32.0) meq/L Anion Gap (5-15) meq/L BUN (7-18) mg/dL Creatinine (0.50-1.00) mg/dL Estimated GFR (>89) mL/min POC Glucose 86 (68-110) mg/dl Random Glucose (74-106) mg/dL Lactic Acid (0.4-2.0) mmol/L Calcium (8.5-10.1) mg/dL Magnesium (1.5-2.5) mg/dL Total Bilirubin (0.2-1.0) mg/dL AST (15-37) U/L ALT (10-53) U/L Alkaline Phosphatase (45-117) U/L Total Creatine Kinase (26-192) U/L Troponin I (0.02-0.05) ng/mL Total Protein (6.4-8.2) g/dL Albumin (3.4-5.0) g/dL Lipase (73-393) U/L Urine Color (Yellw/Straw) Urine Clarity (Clear) Urine pH (5.0-8.5) Ur Specific [place] (1.002-1.035) Urine Protein (Neg-Trace) mg/dL Urine Glucose (UA) (Negative) mg/dL Urine Ketones (Negative) mg/dL Urine Occult Blood (Negative) Urine Nitrate (Negative) Urine Bilirubin (Negative) Urine Urobilinogen (Less than 2) mg/dL Ur Leukocyte Esterase (Negative) Urine RBC (0-3) /hpf Urine WBC (0-5) /hpf Ur Squamous Epith Cells (0-5) /hpf Urine Mucus (Occasional) /lpf Micro UA Comment Ur Microscopic Review Urine Culture Comments Imaging Data Radiologist's impression: Chest X-Ray 12/18/18 13:48 CONCLUSION: No acute findings. Mild cardiac enlargement. Aortic endograft present in the abdomen. Abdomen/Pelvis CT 12/18/18 14:52 CONCLUSION: 1. No acute findings on abdomen and pelvic CT. 2. Status post endovascular repair of 5.5 cm abdominal aortic aneurysm with stable type II endoleak compared with November 14, 2018. Discharge Plan Discharge Disposition Patient Disposition: ED Admit(ED Internal Use Only) Discharge Order Discharge Orders: ED Use Only Admit Order (Routine); Ordered 12/18/18 Ordered By: Roxie Farrar Discharge Details Diagnosis: Abdominal pain with vomiting, Acidosis, lactic Physicians Team ED Provider: Floyd Kilgore ED Midlevel Provider: Roxie Farrar Primary Care Provider: Kem Estrada Attending Provider: Earnest Feliciano Status ED Status: Left Department Discharge Information Discharge Date/Time: 12/18/18 19:05
[2018-12-18 14:42] LABS: Activated Partial Thrombo Time 26.2 sec (23.4-31.7)
[2018-12-18 14:43] LABS: Prothrombin Time 10.4 sec (9.8-11.6)
--- NOTE | 2018-12-18 14:43 | XR ---
EXAM DATE: 12/18/2018 2:29 PM EST AGE/SEX: 78 years / Female INDICATIONS: Chest pain CLINICAL DATA: This is the patient's initial encounter. Patient reports that signs and symptoms have been present for 2 months and indicates a pain score of 3/10. MEDICAL/SURGICAL HISTORY: . Aneurysm, abdominal. Hypertension. Diabetes. Gastroparesis. None . COMPARISON: [facility] [place], CHEST 1V SINGLE AP, 10/15/2018. . FINDINGS: A single AP view of the chest demonstrates the lungs to be symmetrically aerated without evidence of mass, infiltrate or effusion. The cardiomediastinal contours are unremarkable. Osseous structures a re intact. CONCLUSION: No acute findings. Mild cardiac enlargement. Aortic endograft present in the abdomen. Electronically signed by: Juan David White MD Board Certified Radiologist 12/18/2018 2:42 PM EST
[2018-12-18 14:50] LABS: Alanine Aminotransferase 16 U/L (10-53); Albumin 3.7 g/dL (3.4-5.0); Anion Gap 9 meq/L (5-15); Aspartate Aminotransferase 18 U/L (15-37); Blood Urea Nitrogen 14 mg/dL (7-18); Carbon Dioxide 25.6 meq/L (21.0-32.0); Chloride 103 meq/L (98-107); Glomerular Filtration Rate 72 mL/min (>89); Glucose,Random 196 mg/dL (74-106); Lipase 257 U/L (73-393); Magnesium 1.5 mg/dL (1.5-2.5); Sodium 138 meq/L (136-145)
[2018-12-18 14:53] LABS: Alkaline Phosphatase 101 U/L (45-117)
[2018-12-18 14:55] LABS: Creatine Kinase 79 U/L (26-192)
--- NOTE | 2018-12-18 16:09 | CT ---
EXAM DATE: 12/18/2018 4:02 PM EST AGE/SEX: 78 years / Female INDICATIONS: Lower abdomen pain for two months. CLINICAL DATA: This is the patient's initial encounter. Patient reports that signs and symptoms have been present for 2 months and indicates a pain score of 7/10. MEDICAL/SURGICAL HISTORY: Aneurysm, abdominal. Gastroparesis. Hypertension. Hysterectomy. AAA graft ORAL CONTRAST: No oral contrast ingested. RADIATION DOSE: 6.64 CTDI (mGy) COMPARISON: [facility], CTA ABDOMEN AND PELVIS, 11/14/2018. . TECHNIQUE: Multiple contiguous axial images were obtained through the abdomen and pelvis following b olus infusion of 96 ml Omnipaque 350 (iohexol) nonionic water-soluble contrast as a single exam dos e. No oral contrast ingested. Using automated exposure control and adjustment of the mA and/or kV ac cording to patient size, radiation dose was kept as low as reasonably achievable to obtain optimal di agnostic quality images. DICOM format image data is available electronically for review and comparis on. FINDINGS: Comparison is November 14. Again seen is endovascular repair of abdominal aortic aneurysm with a stabl e type II endoleak in the lower aneurysmal sac. The sac measures about 5.5 x 4.5 cm in diameter. Lung bases are clear. No acute findings in the liver, spleen, adrenals, pancreas. No acute renal abno rmalities. No free fluid. No bowel obstruction. No adenopathy. CONCLUSION: 1. No acute findings on abdomen and pelvic CT. 2. Status post endovascular repair of 5.5 cm abdominal aortic aneurysm with stable type II endoleak compared with November 14, 2018. Electronically signed by: Juan David White MD Board Certified Radiologist 12/18/2018 4:08 PM EST
[2018-12-18 16:46] LABS: Bilirubin,Urine Negative (Negative); Clarity,Urine Hazy (Clear); Color,Urine Yellow (Yellw/Straw); Glucose,Urine (UA) Negative (Negative); Leukocyte Esterase,Urine Small (Negative); Mucus,Urine Few /lpf (Occasional); Nitrite,Urine Negative (Negative); Specific Gravity,Urine 1.015 (1.002-1.035); Squamous Epithelial Cell,Urine 7 /hpf (0-5)
[2018-12-18] MEDS ORDERED: Acetaminophen 325 MG Tablet PO PRN (17:42)
[2018-12-18] MEDS ORDERED: Sod Chloride 0.9% Inj 1,000 ML IV.CONT SCH (17:45)
--- NOTE | 2018-12-18 18:02 | P.HPFP ---
History of Present Illness Primary Care Physician: Kem Estrada MD, PhD <Earnest Feliciano - 12/19/18 11:37> Kem Estrada MD, PhD <Mckayla Hutson - 12/18/18 19:28> Chief Complaint: Abdominal pain <Mckayla Hutson - 12/18/18 18:02> History of Present Illness: Patient is a 78 year old female who presents to the [facility] ED for evaluation of abdominal pain. She has been experiencing abdominal, specifically epigastric , pain for months. At first, she experienced the pain prior to meals. "It felt like an ulcer. I have had ulcers before." Milk provided some relief of symptoms. However, the pain has become progressively worse and for the past two weeks it has been constant. The pain is a dull, 5/10 pain that radiates from epigastric region to lower abdominal quadrants and into her back. Over the last two days, she has been experiencing nausea and vomiting. She vomited "a little" once; she describes the vomit as curdled milk and denies blood in the vomit. Patient has history of gastroparesis and constipation but reports non-bloody diarrhea since EGD/colonoscopy on 12/09/18. Procedures without remarkable findings. Patient also reports fear of, and therefore, minimal PO intake with weight loss of 10lbs over the past four weeks. She denies fever and chills. Of note, patient was admitted to the hospital on October 14, 2018. While she complained of abdominal pain, it was thought to be viral ans she was treated for pneumonia. She was also evaluated for a chronic endoleak s/p AAA repair; no intervention needed. Since then, patient has been evaluated by GI with EGD/colonoscopy as above. Patient also met with interventional radiology, Dr. 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 She is scheduled for an angiogram with possible stent placement later this week. <Mckayla Hutson - 12/18/18 23:28> - Diagnosis (1) Abdominal pain (2) Leukocytosis (3) Acidosis, lactic (4) Endoleak post endovascular aneurysm repair (5) Hypertension (6) DM (diabetes mellitus) (7) Nutrition, metabolism, and development symptoms <Earnest Feliciano 12/19/18 11:37> (1) Abdominal pain (2) Leukocytosis (3) Acidosis, lactic (4) Endoleak post endovascular aneurysm repair (5) Hypertension (6) DM (diabetes mellitus) (7) Nutrition, metabolism, and development symptoms <Mckayla Hutson 12/18/18 23:32> Inpatient Certification: I certify that the inpatient services were ordered in accordance with Medicare regulations governing the order. This includes certification that hospital inpatient services are reasonable and necessary and in the case of services not specified as inpatient-only under 42 CFR 419.22(n), that they are appropriately provided as inpatient services in accordance to with the 2-midnight benchmark under 43 CFR 412.3(e) <Earnest Feliciano 12/19/18 11:37> I certify that the inpatient services were ordered in accordance with Medicare regulations governing the order. This includes certification that hospital inpatient services are reasonable and necessary and in the case of services not specified as inpatient-only under 42 CFR 419.22(n), that they are appropriately provided as inpatient services in accordance to with the 2-midnight benchmark under 43 CFR 412.3(e) <Mckayla Hutson 12/18/18 18:02> Estimated Total Length of Stay (Days): 3 <Mckayla Hutson 12/18/18 18:02> Plans for Post Hospital Care: Not yet determined <Mckayla Hutson 18:02> Review of Systems All other systems reviewed negative except as stated in HPI <Mckayla Hutson 12/18/18 19:28> PMFSH - History History Provided By: Patient, Family Member (Daughter at bedside ) <Mckayla Hutson 12/18/18 19:28> - Medical History Medical History: Medical History (Last Updated 12/18/18 @ 18:47 by Mckayla Burk MD, R2) Coronary artery disease History of hysterectomy Hypothyroidism Orthostatic hypotension Sleep apnea Vitamin B12 deficiency Aortic aneurysm and dissection Diabetes Gastroparesis HTN (hypertension) Hypercholesterolemia <Earnest Feliciano 12/19/18 11:37> Medical History (Last Updated 12/18/18 @ 18:47 by Mckayla Burk MD, R2) Coronary artery disease History of hysterectomy Hypothyroidism Orthostatic hypotension Sleep apnea Vitamin B12 deficiency Aortic aneurysm and dissection Diabetes Gastroparesis HTN (hypertension) Hypercholesterolemia <Mckayla Hutson 12/18/18 19:28> - Surgical History Surgical History: Surgical History (Last Updated 12/18/18 @ 18:47 by Mckayla Burk MD, R2) History of arthroscopic knee surgery History of cataract extraction History of carpal tunnel surgery History of endovascular stent graft for abdominal aortic aneurysm (AAA) Hx of tonsillectomy <Earnest Feliciano 12/19/18 11:37> Surgical History (Last Updated 12/18/18 @ 18:47 by Mckayla Burk MD, R2) History of arthroscopic knee surgery History of cataract extraction History of carpal tunnel surgery History of endovascular stent graft for abdominal aortic aneurysm (AAA) Hx of tonsillectomy <Mckayla Hutson 12/18/18 19:28> - Family History Family History: Family History (Last Updated 12/18/18 @ 18:47 by Mckayla Burk MD, R2) Other No significant family history <Earnest Feliciano 12/19/18 11:37> Family History (Last Updated 12/18/18 @ 18:47 by Mckayla Burk MD, R2) Other No significant family history <Mckayla Hutson 12/18/18 19:28> - Social History I have reviewed the patient's Social History: Yes <Mckayla Hutson 19:28> - Tobacco History Second Hand Smoke Exposure: No <Mckayla Hutson 12/18/18 18:02> Tobacco Use In Past 30 Days: No <Mckayla Hutson 12/18/18 19:28> Smoking Status: Former smoker (Quit 25 years ago, used to smoke 2-3 packs per day) <Mckayla Hutson 12/18/18 19:28> Tobacco Type: Cigarettes <Mckayla Hutson 12/18/18 18:02> - Alcohol History How Often Do You Have a Drink Containing Alcohol: Never <Mckayla Hutson 12/18/18 18:02> - Substance Use History Substance History: No History of Abuse <Mckayla Hutson - 12/18/18 18:02> - Travel History History of Recent Travel: No <Mckayla Hutson - 12/18/18 19:28> Recent Travel in the [place] Within the Last 8 Weeks: No <Mckayla Hutson - 19:28> Recent Travel Out of the Country Within the Last 8 Weeks: No <Mckayla Hutson - 12/18/18 19:28> - Immunization History Tetanus Immunization: Unsure <Mckayla Hutson - 12/18/18 18:02> Medications and Allergies Allergies Allergy/AdvReac Type Severity Reaction Status Date / Time clams Allergy Severe n/v Verified 12/02/18 15:13 oyster extract Allergy Severe n/v Verified 12/02/18 15:13 red dye Allergy Severe hives and Verified 12/02/18 15:13 swelling scallops Allergy Severe nausea and Verified 12/02/18 15:13 vomiting shellfish derived Allergy Nausea/Vomi Verified 12/02/18 15:13 ting <Earnest Feliciano - 12/19/18 11:37> Home Medications Medication Instructions Recorded Confirmed Type amlodipine 5 mg PO DAILY 10/15/18 12/18/18 History bethanechol chloride 12.5 mg PO BID 10/15/18 12/18/18 History glimepiride 1 mg PO BID 10/15/18 12/18/18 History levothyroxine 112 mcg PO DAILY 10/15/18 12/18/18 History lovastatin 40 mg PO DAILY 10/15/18 12/18/18 History metformin 500 mg PO BID 10/15/18 12/18/18 History metoprolol succinate 25 mg PO DAILY 10/15/18 12/18/18 History Aspirin Childrens 81 mg PO DAILY 10/16/18 12/18/18 History Multi-Vitamin HP/Minerals 1 tab PO DAILY 10/16/18 12/18/18 History potassium chloride [K-Tab] 10 meq PO DAILY 10/16/18 12/18/18 History telmisartan [Micardis] 40 mg PO DAILY 10/16/18 12/18/18 History timolol maleate [Timoptic] 1 drops OPHTHALMIC (EYE) HS 10/16/18 12/18/18 History cyanocobalamin (vitamin B-12) 1,000 mcg PO DAILY 12/02/18 12/18/18 History [Vitamin B-12] omeprazole 40 mg PO DAILY 12/02/18 12/18/18 History <Earnest Feliciano - 12/19/18 11:37> Active Medications: Active Medications Acetaminophen (Tylenol) 650 mg PO Q4H PRN PRN Reason: Temp > 100.4 and pain 1-2 Last Admin: 12/18/18 20:19 Dose: 650 mg Amlodipine Besylate (Norvasc) 5 mg PO DAILY [facility] Last Admin: 12/19/18 09:40 Dose: 5 mg Aspirin (Aspirin Chew) 81 mg PO DAILY [facility] Last Admin: 12/18/18 20:24 Dose: 81 mg Bethanechol Chloride (Urecholine) 12.5 mg PO BID [facility] Last Admin: 12/18/18 20:19 Dose: 12.5 mg Cyanocobalamin (Vitamin B12) 1,000 mcg PO DAILY [facility] Dextrose (D50w Vial) 50 ml IV.PUSH UNSCH PRN PRN Reason: PER HYPOGLYCEMIA PROTOCOL Enalaprilat (Vasotec Inj) 1.25 mg IV.PUSH Q6H PRN PRN Reason: SEE LABEL COMMENTS Glucagon (Glucagon Inj) 1 mg OTHER PRN PRN PRN Reason: for Hypoglycemia Protocol Sodium Chloride (Ns Inj) 1,000 mls @ 110 mls/hr IV.CONT .Q9H6M [facility] Last Admin: 12/18/18 17:57 Dose: 110 mls/hr Insulin Aspart (Novolog Insulin Correctional Sugar Inj) 0 unit SQ ACHS [facility]; Protocol Last Admin: 12/19/18 09:39 Dose: Not Given Levothyroxine Sodium (Synthroid) 112 mcg PO DAILY@0600 [facility] Last Admin: 12/19/18 06:05 Dose: Not Given Losartan Potassium (Cozaar) 50 mg PO DAILY [facility] Last Admin: 12/19/18 09:40 Dose: 50 mg Metoprolol Succinate (Toprol Xl) 25 mg PO DAILY [facility] Last Admin: 12/19/18 09:40 Dose: 25 mg Morphine Sulfate (Morphine Inj) 1 mg IV.PUSH Q2H PRN PRN Reason: PAIN 3-5; IF UABLE TO TAKE PO Morphine Sulfate (Morphine Inj) 2 mg IV.PUSH Q2H PRN PRN Reason: PAIN 6-10, UNABLE TO TAKE PO Multivitamins/Minerals (Theragran-M) 1 tab PO DAILY [facility] Naloxone HCl (Narcan Inj) 0.4 mg IV.PUSH UNSCH PRN PRN Reason: SEE LABEL COMMENTS Ondansetron HCl (Zofran Inj) 4 mg IV.PUSH Q6H PRN PRN Reason: NAUSEA OR VOMITING Last Admin: 12/19/18 09:46 Dose: 4 mg Pantoprazole Sodium (Protonix) 40 mg PO DAILY [facility] Potassium Chloride (Klor-Con 10) 10 meq PO DAILY [facility] Pravastatin Sodium (Pravachol) 40 mg PO DAILY [facility] Senna/Docusate Sodium (Izabel-Colace) 1 tab PO BID [facility] Last Admin: 12/18/18 20:20 Dose: 1 tab Sodium Chloride (Ns Flush) 2 ml IV.FLUSH BID [facility] Last Admin: 12/18/18 22:08 Dose: Not Given Sodium Chloride (Ns Flush) 2 ml IV.FLUSH PRN PRN PRN Reason: FLUSH AFTER USING IV ACCESS Last Admin: 12/19/18 09:48 Dose: 2 ml Timolol Maleate (Timoptic 0.5% Drops) 1 drops EACH EYE HS [facility] Last Admin: 12/18/18 20:19 Dose: 1 drops <Earnest Feliciano - 12/19/18 11:37> Active Medications Acetaminophen (Tylenol) 650 mg PO Q4H PRN PRN Reason: Temp > 100.4 and pain Sodium Chloride (Ns Inj) 1,000 mls @ 110 mls/hr IV.CONT .Q9H6M [facility] Ondansetron HCl (Zofran Inj) 4 mg IV.PUSH Q6H PRN PRN Reason: NAUSEA OR VOMITING Senna/Docusate Sodium (Izabel-Colace) 1 tab PO BID [facility] Sodium Chloride (Ns Flush) 2 ml IV.FLUSH PRN PRN PRN Reason: FLUSH AFTER USING IV ACCESS Sodium Chloride (Ns Flush) 2 ml IV.FLUSH BID [facility] Sodium Chloride (Ns Flush) 2 ml IV.FLUSH PRN PRN PRN Reason: FLUSH AFTER USING IV ACCESS <Mckayla Hutson - 12/18/18 18:02> Exam Vital signs: Vital Signs 12/18/18 13:16 12/18/18 13:18 12/18/18 15:18 Temperature 97.9 F Pulse Rate 96 H 72 Respiratory Rate 20 18 18 Blood Pressure 156/75 H 159/73 H Pulse Oximetry 97 95 12/18/18 18:12 12/18/18 18:20 12/18/18 19:20 Temperature 98.0 F Pulse Rate 78 69 Respiratory Rate 18 18 Blood Pressure 156/70 H 166/74 H Pulse Oximetry 98 98 94 L 12/18/18 21:00 12/18/18 23:30 12/19/18 00:15 Temperature 98.0 F Pulse Rate 70 62 63 Respiratory Rate 17 Blood Pressure 130/59 L Pulse Oximetry 96 12/19/18 04:00 12/19/18 04:10 12/19/18 08:00 Temperature 97.8 F 98.5 F Pulse Rate 69 65 62 Respiratory Rate 17 20 Blood Pressure 133/66 130/67 Pulse Oximetry 96 92 L Intake & Output 12/18/18 12/19/18 12/19/18 18:59 06:59 18:59 Intake Total 1000 / 1000 240 / 240 Balance 1000 / 1000 240 / 240 Weight 65.771 kg 65.8 kg Intake: IV 1000 / 1000 NS Inj 1,000 ML @ Wide Open IV. 1000 / 1000 SIG BOLUS ONE Rx#:[id number] Oral 240 / 240 Other: # Voids 1 Date of Last Bowel Movement 12/17/18 # Bowel Movements 0 <Earnest Feliciano - 12/19/18 11:37> Vital Signs 12/18/18 13:16 12/18/18 13:18 12/18/18 15:18 Temperature 97.9 F Pulse Rate 96 H 72 Respiratory Rate 20 18 18 Blood Pressure 156/75 H 159/73 H Pulse Oximetry 97 95 Intake & Output 12/17/18 12/18/18 12/18/18 18:59 06:59 18:59 Intake Total 1000 / 1000 Balance 1000 / 1000 Weight 65.771 kg Intake: IV 1000 / 1000 NS Inj 1,000 ML @ Wide Open IV. 1000 / 1000 SIG BOLUS ONE Rx#:[id number] <Mckayla Hutson - 12/18/18 18:02> Narrative: GENERAL: Pleasant elderly female in no acute distress. SKIN: Warm and dry. HEAD: Atraumatic. Normocephalic. EYES: Pupils equal and round. No scleral icterus. No injection or drainage. ENT: No nasal bleeding or discharge. Mucous membranes pink and moist. NECK: Trachea midline. No JVD. CARDIOVASCULAR: Regular rate and rhythm. RESPIRATORY: No accessory muscle use. Clear to auscultation. Breath sounds equal bilaterally. GASTROINTESTINAL: Positive bowel sounds. Abdomen soft, nondistended. Tenderness upon palpation of epigastric region. MUSCULOSKELETAL: Extremities without clubbing, cyanosis, or edema. No obvious deformities. NEUROLOGICAL: Awake and alert. No obvious cranial nerve deficits. Motor grossly within normal limits. Normal speech. PSYCHIATRIC: Appropriate mood and affect; insight and judgment normal. <Mckayla Hutson - 12/18/18 19:28> Results - Labs Result diagrams: 12/18/18 13:50 12/18/18 13:50 <Earnest Feliciano - 12/19/18 11:37> Abnormal lab results 12/18/18 12/18/18 12/18/18 Range/Units 13:50 13:50 13:50 WBC 14.1 H (4.0-11.0) th/mm3 Neut % (Auto) 72.7 H (16.0-70.0) % Neut # (Auto) 10.3 H (1.8-7.7) th/mm3 [place] # (Auto) 1.1 H (0.0-0.9) th/mm3 Estimated GFR 72 L (>89) mL/min Random Glucose 196 H (74-106) mg/dL Lactic Acid 3.0 H (0.4-2.0) mmol/L Troponin I Less than 0.02 L (0.02-0.05) ng/mL Urine Clarity (Clear) Urine Occult Blood (Negative) Ur Leukocyte Esterase (Negative) Urine Mucus (Occasional) /lpf 12/18/18 Range/Units 16:00 WBC (4.0-11.0) th/mm3 Neut % (Auto) (16.0-70.0) % Neut # (Auto) (1.8-7.7) th/mm3 [place] # (Auto) (0.0-0.9) th/mm3 Estimated GFR (>89) mL/min Random Glucose (74-106) mg/dL Lactic Acid (0.4-2.0) mmol/L Troponin I (0.02-0.05) ng/mL Urine Clarity Hazy H (Clear) Urine Occult Blood Small H (Negative) Ur Leukocyte Esterase Small H (Negative) Urine Mucus Few H (Occasional) /lpf Short CBC 12/18/18 Range/Units 13:50 WBC 14.1 H (4.0-11.0) th/mm3 Hgb 14.0 (11.6-15.3) gm/dL Hct 42.0 (35.0-46.0) % Plt Count 272 (150-450) th/mm3 BMP 12/18/18 13:50 Sodium 138 Potassium 4.0 Chloride 103 Carbon Dioxide 25.6 BUN 14 Creatinine 0.78 Calcium 9.0 Cardiac Enzymes 12/18/18 Range/Units 13:50 Total Creatine Kinase 79 (26-192) U/L Troponin I Less than 0.02 L (0.02-0.05) ng/mL Liver Function 12/18/18 Range/Units 13:50 Total Bilirubin 0.6 (0.2-1.0) mg/dL AST 18 (15-37) U/L ALT 16 (10-53) U/L Alkaline Phosphatase 101 (45-117) U/L Albumin 3.7 (3.4-5.0) g/dL Urine 12/18/18 Range/Units 16:00 Urine Color Yellow (Yellw/Straw) Urine Clarity Hazy H (Clear) Urine pH 5.0 (5.0-8.5) Ur Specific [place] 1.015 (1.002-1.035) Urine Protein Negative (Neg-Trace) mg/dL Urine Glucose (UA) Negative (Negative) mg/dL <Earnest Feliciano K - 12/19/18 11:37> Abnormal lab results 12/18/18 12/18/18 12/18/18 Range/Units 13:50 13:50 13:50 WBC 14.1 H (4.0-11.0) th/mm3 Neut % (Auto) 72.7 H (16.0-70.0) % Neut # (Auto) 10.3 H (1.8-7.7) th/mm3 [place] # (Auto) 1.1 H (0.0-0.9) th/mm3 Estimated GFR 72 L (>89) mL/min Random Glucose 196 H (74-106) mg/dL Lactic Acid 3.0 H (0.4-2.0) mmol/L Troponin I Less than 0.02 L (0.02-0.05) ng/mL Urine Clarity (Clear) Urine Occult Blood (Negative) Ur Leukocyte Esterase (Negative) Urine Mucus (Occasional) /lpf 12/18/18 Range/Units 16:00 WBC (4.0-11.0) th/mm3 Neut % (Auto) (16.0-70.0) % Neut # (Auto) (1.8-7.7) th/mm3 [place] # (Auto) (0.0-0.9) th/mm3 Estimated GFR (>89) mL/min Random Glucose (74-106) mg/dL Lactic Acid (0.4-2.0) mmol/L Troponin I (0.02-0.05) ng/mL Urine Clarity Hazy H (Clear) Urine Occult Blood Small H (Negative) Ur Leukocyte Esterase Small H (Negative) Urine Mucus Few H (Occasional) /lpf Short CBC 12/18/18 Range/Units 13:50 WBC 14.1 H (4.0-11.0) th/mm3 Hgb 14.0 (11.6-15.3) gm/dL Hct 42.0 (35.0-46.0) % Plt Count 272 (150-450) th/mm3 BMP 12/18/18 13:50 Sodium 138 Potassium 4.0 Chloride 103 Carbon Dioxide 25.6 BUN 14 Creatinine 0.78 Calcium 9.0 Cardiac Enzymes 12/18/18 Range/Units 13:50 Total Creatine Kinase 79 (26-192) U/L Troponin I Less than 0.02 L (0.02-0.05) ng/mL Liver Function 12/18/18 Range/Units 13:50 Total Bilirubin 0.6 (0.2-1.0) mg/dL AST 18 (15-37) U/L ALT 16 (10-53) U/L Alkaline Phosphatase 101 (45-117) U/L Albumin 3.7 (3.4-5.0) g/dL Urine 12/18/18 Range/Units 16:00 Urine Color Yellow (Yellw/Straw) Urine Clarity Hazy H (Clear) Urine pH 5.0 (5.0-8.5) Ur Specific [place] 1.015 (1.002-1.035) Urine Protein Negative (Neg-Trace) mg/dL Urine Glucose (UA) Negative (Negative) mg/dL <Samantacynthia Cruzito Burkin - 12/18/18 18:02> - Imaging Impressions Chest X-Ray 12/18/18 13:48 CONCLUSION: No acute findings. Mild cardiac enlargement. Aortic endograft present in the abdomen. Abdomen/Pelvis CT 12/18/18 14:52 CONCLUSION: 1. No acute findings on abdomen and pelvic CT. 2. Status post endovascular repair of 5.5 cm abdominal aortic aneurysm with stable type II endoleak compared with November 14, 2018. <Earnest Feliciano K - 12/19/18 11:37> Impressions Chest X-Ray 12/18/18 13:48 CONCLUSION: No acute findings. Mild cardiac enlargement. Aortic endograft present in the abdomen. Abdomen/Pelvis CT 12/18/18 14:52 CONCLUSION: 1. No acute findings on abdomen and pelvic CT. 2. Status post endovascular repair of 5.5 cm abdominal aortic aneurysm with stable type II endoleak compared with November 14, 2018. <Samantacynthia Cruzito Burkin - 12/18/18 18:02> Caprini VTE Risk Assessment Caprini VTE Risk Assessment: Moderate/High Risk (score >= 2) <Samantacynthia Burk Mckayla - 12/18/18 19:28> Caprini Risk Assessment Model: Point Value = 1 Point Value = 2 Point Value = 3 Point Value = 5 Age 41-60 Minor surgery BMI > 25 kg/m2 Swollen legs Varicose veins or History of unexplained or recurrent spontaneous Oral contraceptives or hormone replacement Sepsis (< 1 month) Serious lung disease, including pneumonia (< 1 month) Abnormal pulmonary function Acute myocardial infarction Congestive heart failure (< 1 month) History of inflammatory bowel disease Medical patient at bed rest Age 61-74 Arthroscopic surgery Major open surgery (> 45 min) Laparoscopic surgery (> 45 min) Malignancy Confined to bed (> 72 hours) Immobilizing plaster cast Central venous access Age >= 75 History of VTE Family history of VTE Factor V Leiden Prothrombin [id number] Lupus anticoagulant Anticardiolipin antibodies Elevated serum homocysteine Heparin-induced thrombocytopenia Other congenital or acquired thrombophilia Stroke (< 1 month) Elective arthroplasty Hip, pelvis, or leg fracture Acute spinal cord injury (< 1 month) <Earnest Feliciano - 12/19/18 11:37> Point Value = 1 Point Value = 2 Point Value = 3 Point Value = 5 Age 41-60 Minor surgery BMI > 25 kg/m2 Swollen legs Varicose veins or History of unexplained or recurrent spontaneous Oral contraceptives or hormone replacement Sepsis (< 1 month) Serious lung disease, including pneumonia (< 1 month) Abnormal pulmonary function Acute myocardial infarction Congestive heart failure (< 1 month) History of inflammatory bowel disease Medical patient at bed rest Age 61-74 Arthroscopic surgery Major open surgery (> 45 min) Laparoscopic surgery (> 45 min) Malignancy Confined to bed (> 72 hours) Immobilizing plaster cast Central venous access Age >= 75 History of VTE Family history of VTE Factor V Leiden Prothrombin [id number] Lupus anticoagulant Anticardiolipin antibodies Elevated serum homocysteine Heparin-induced thrombocytopenia Other congenital or acquired thrombophilia Stroke (< 1 month) Elective arthroplasty Hip, pelvis, or leg fracture Acute spinal cord injury (< 1 month) <Mckayla Hutson - 12/18/18 18:02> Prophylaxis Regimen: Total Risk Factor Score Risk Level Prophylaxis Regimen 0-1 Low Early ambulation 2 Moderate Order ONE of the following: *Sequential Compression Device (SCD) *Heparin 5000 units SQ BID 3-4 Higher Order ONE of the following medications: *Heparin 5000 units SQ TID *Enoxaparin/Lovenox 40 mg SQ daily (WT < 150 kg, CrCl > 30 mL/min) *Enoxaparin/Lovenox 30 mg SQ daily (WT < 150 kg, CrCl > 10-29 mL/min) *Enoxaparin/Lovenox 30 mg SQ BID (WT < 150 kg, CrCl > 30 mL/min) AND/OR *Sequential Compression Device (SCD) 5 or more Highest Order ONE of the following medications: *Heparin 5000 units SQ TID (Preferred with Epidurals) *Enoxaparin/Lovenox 40 mg SQ daily (WT < 150 kg, CrCl > 30 mL/min) *Enoxaparin/Lovenox 30 mg SQ daily (WT < 150 kg, CrCl > 10-29 mL/min) *Enoxaparin/Lovenox 30 mg SQ BID (WT < 150 kg, CrCl > 30 mL/min) AND *Sequential Compression Device (SCD) <Earnest Feliciano - 12/19/18 11:37> Total Risk Factor Score Risk Level Prophylaxis Regimen 0-1 Low Early ambulation 2 Moderate Order ONE of the following: *Sequential Compression Device (SCD) *Heparin 5000 units SQ BID 3-4 Higher Order ONE of the following medications: *Heparin 5000 units SQ TID *Enoxaparin/Lovenox 40 mg SQ daily (WT < 150 kg, CrCl > 30 mL/min) *Enoxaparin/Lovenox 30 mg SQ daily (WT < 150 kg, CrCl > 10-29 mL/min) *Enoxaparin/Lovenox 30 mg SQ BID (WT < 150 kg, CrCl > 30 mL/min) AND/OR *Sequential Compression Device (SCD) 5 or more Highest Order ONE of the following medications: *Heparin 5000 units SQ TID (Preferred with Epidurals) *Enoxaparin/Lovenox 40 mg SQ daily (WT < 150 kg, CrCl > 30 mL/min) *Enoxaparin/Lovenox 30 mg SQ daily (WT < 150 kg, CrCl > 10-29 mL/min) *Enoxaparin/Lovenox 30 mg SQ BID (WT < 150 kg, CrCl > 30 mL/min) AND *Sequential Compression Device (SCD) <Labell BhargaviSrikanthMckayla - 12/18/18 18:02> Assessment and Plan - Assessment (1) Abdominal pain Code(s): R10.9 - Unspecified abdominal pain Status: Chronic (2) Leukocytosis Code(s): D72.829 - Elevated white blood cell count, unspecified Status: Acute (3) Acidosis, lactic Code(s): E87.2 - Acidosis Status: Resolved (4) Endoleak post endovascular aneurysm repair Code(s): T82.330A - Leakage of aortic (bifurcation) graft (replacement), initial encounter Status: Chronic (5) Hypertension Code(s): I10 - Essential (primary) hypertension Status: Acute (6) DM (diabetes mellitus) Code(s): E11.9 - Type 2 diabetes mellitus without complications Status: Chronic (7) Nutrition, metabolism, and development symptoms Code(s): R63.8 - Other symptoms and signs concerning food and fluid intake Status: Acute <Earnest Feliciano - 12/19/18 11:37> (1) Abdominal pain Code(s): R10.9 - Unspecified abdominal pain Status: Chronic Plan: Patient with worsening abdominal pain. * Started months ago, gradual worsening * Epigastric, dull, 5/10 pain that radiates from epigastric region to lower abdominal quadrants and into her back. * Nausea and vomiting, non-bloody. * History of gastroparesis and constipation, now with non-bloody diarrhea. * Fear of, and therefore, minimal PO intake with weight loss of 10lbs over the past four weeks. Outpatient GI work-up negative. Patient has met with interventional radiology, Dr. 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 She is scheduled for an angiogram with possible stent placement later this week. Pain likely secondary to ischemia. Patient stable with resolved lactic acidosis. Per conversation with radiology, Dr. White, CT abdomen/pelvis from 12/18/18 shows no evidence of free fluid or thickened bowel. Interventional radiology consulted; plan for angiogram with possible stent placement tomorrow if possible. Pain management with Tylenol and morphine. IV hydration as below. (2) Leukocytosis Code(s): D72.829 - Elevated white blood cell count, unspecified Status: Acute Plan: WBC 14.1 on admission. Afebrile. No source of infection identified at this point. Likely secondary to abdominal process. See plan above. Monitor with CBC in a.m. (3) Acidosis, lactic Code(s): E87.2 - Acidosis Status: Resolved Plan: Resolved. Lactic acid 3.0 on admission. Repeat lactic acid wnl. (4) Endoleak post endovascular aneurysm repair Code(s): T82.330A - Leakage of aortic (bifurcation) graft (replacement), initial encounter Status: Chronic Plan: Stable. CT abdomen/pelvis with IV contrast 12/18/18: Status post endovascular repair of 5.5 cm abdominal aortic aneurysm with stable type II endoleak compared with November 14, 2018. Dr. Cleveland consulted during hospital admission in October; no intervention necessary. Monitor. (5) Hypertension Code(s): I10 - Essential (primary) hypertension Status: Acute Plan: Patient with history of hypertension. Continue home Losartan and amlodipine. Monitor. (6) DM (diabetes mellitus) Code(s): E11.9 - Type 2 diabetes mellitus without complications Status: Chronic Plan: Patient with history of diabetes. Hold home Metformin and glimepiride. Low dose insulin sliding scale. Monitor glucose. Hypoglycemia protocol in place. (7) Nutrition, metabolism, and development symptoms Code(s): R63.8 - Other symptoms and signs concerning food and fluid intake Status: Acute Plan: Fluid: NS at 110 ml/hr. Diet: Clear liquid diet. NPO after midnight for possible IR procedure in the morning. Electrolytes: Monitor and replete as necessary. <Mckayla Hutson - 12/18/18 23:32> - Attending Attestation The exam, history, and the medical decision-making described in the above note were completed with the assistance of the resident physician. I reviewed and agree with the findings presented. I attest that I had a [id number] encounter with the patient on the same day, and personally performed and documented my assessment and findings in the medical record. Discussed patient with Dr Victoria on 12/19 and reviewed her histories and plan as documented above. see my PN from 12/20 for updates. <Earnest Feliciano - 12/19/18 11:37> <Mckayla Hutson - Last Filed: 12/18/18 23:32> (4) Endoleak post endovascular aneurysm repair Qualifiers: Encounter type: initial encounter Qualified Code(s): T82.330A - Leakage of aortic (bifurcation) graft (replacement), initial encounter <Earnest Feliciano - Last Filed: 12/19/18 11:37> (4) Endoleak post endovascular aneurysm repair Qualifiers: Encounter type: initial encounter Qualified Code(s): T82.330A - Leakage of aortic (bifurcation) graft (replacement), initial encounter <Labell Mckayla Burk - Last Filed: 12/18/18 23:32> (4) Endoleak post endovascular aneurysm repair Qualifiers: Encounter type: initial encounter Qualified Code(s): T82.330A - Leakage of aortic (bifurcation) graft (replacement), initial encounter <Earnest Feliciano - Last Filed: 12/19/18 11:37> (4) Endoleak post endovascular aneurysm repair Qualifiers: Encounter type: initial encounter Qualified Code(s): T82.330A - Leakage of aortic (bifurcation) graft (replacement), initial encounter
[2018-12-18] MEDS ORDERED: Morphine Sulfate Inj 2 MG/ML Vial IV.PUSH PRN (18:13)
[2018-12-18] MEDS ORDERED: Naloxone Inj 0.4 MG/ML Vial IV.PUSH PRN (18:13)
[2018-12-18] MEDS ORDERED: Morphine Inj 4 MG/ML Vial IV.PUSH PRN (18:13)
[2018-12-18] MEDS ORDERED: Dextrose 50% in Water 50 ML Vial IV.PUSH PRN (19:20)
[2018-12-18] MEDS: Timolol 0.5% Drops 5 ML Bottle EACH EYE SCH (20:19)
[2018-12-18] MEDS: Senna/Docusate Sodium 8.6/50 MG Tablet PO SCH (20:20)
[2018-12-18] MEDS: Insulin NovoLOG Aspart Correctional Sugar Inj SQ SCH (20:25)
[2018-12-19] MEDS: Levothyroxine 112 MCG Tablet PO SCH (06:05)
[2018-12-19] MEDS: Multivitamin/Minerals Therapeutic Tablet PO SCH (09:00)
[2018-12-19] MEDS: Senna/Docusate Sodium 8.6/50 MG Tablet PO SCH ×2 (09:00→21:23)
[2018-12-19] MEDS: Insulin NovoLOG Aspart Correctional Sugar Inj SQ SCH ×4 (09:39→22:13)
[2018-12-19] MEDS: amLODIPine 5 MG Tablet PO SCH (09:40)
[2018-12-19] MEDS ORDERED: fentaNYL Citrate Inj 250 MCG/5 ML Ampul ONE (10:41)
[2018-12-19] MEDS ORDERED: Morphine Sulfate Inj 2 MG/ML Vial IV.PUSH PRN ×3 (10:46→11:15)
[2018-12-19] MEDS ORDERED: ceFAZolin 2 GM Premix Inj 2 GM/50 ML PIGGYBACK IV.SIG ONE (11:05)
[2018-12-19] MEDS ORDERED: Heparin Central Flush 100 UNIT/ML 5 ML Vial IV.FLUSH ONE (11:43)
--- NOTE | 2018-12-19 11:48 | P.PNFP ---
Subjective Interval history: some persistent mild gonzález umbilical pain but much improved from yesterday. she has not eaten and not been nauseous. no n/v/d/f/c. no blood in stool no cp/sob. Results - Labs Result diagrams: 12/18/18 13:50 12/18/18 13:50 Abnormal lab results 12/18/18 12/18/18 12/18/18 Range/Units 13:50 13:50 13:50 WBC 14.1 H (4.0-11.0) th/mm3 Neut % (Auto) 72.7 H (16.0-70.0) % Neut # (Auto) 10.3 H (1.8-7.7) th/mm3 Nash # (Auto) 1.1 H (0.0-0.9) th/mm3 Estimated GFR 72 L (>89) mL/min Random Glucose 196 H (74-106) mg/dL Lactic Acid 3.0 H (0.4-2.0) mmol/L Troponin I Less than 0.02 L (0.02-0.05) ng/mL Urine Clarity (Clear) Urine Occult Blood (Negative) Ur Leukocyte Esterase (Negative) Urine Mucus (Occasional) /lpf 12/18/18 Range/Units 16:00 WBC (4.0-11.0) th/mm3 Neut % (Auto) (16.0-70.0) % Neut # (Auto) (1.8-7.7) th/mm3 Nash # (Auto) (0.0-0.9) th/mm3 Estimated GFR (>89) mL/min Random Glucose (74-106) mg/dL Lactic Acid (0.4-2.0) mmol/L Troponin I (0.02-0.05) ng/mL Urine Clarity Hazy H (Clear) Urine Occult Blood Small H (Negative) Ur Leukocyte Esterase Small H (Negative) Urine Mucus Few H (Occasional) /lpf Short CBC 12/18/18 Range/Units 13:50 WBC 14.1 H (4.0-11.0) th/mm3 Hgb 14.0 (11.6-15.3) gm/dL Hct 42.0 (35.0-46.0) % Plt Count 272 (150-450) th/mm3 BMP 12/18/18 13:50 Sodium 138 Potassium 4.0 Chloride 103 Carbon Dioxide 25.6 BUN 14 Creatinine 0.78 Calcium 9.0 Cardiac Enzymes 12/18/18 Range/Units 13:50 Total Creatine Kinase 79 (26-192) U/L Troponin I Less than 0.02 L (0.02-0.05) ng/mL Liver Function 12/18/18 Range/Units 13:50 Total Bilirubin 0.6 (0.2-1.0) mg/dL AST 18 (15-37) U/L ALT 16 (10-53) U/L Alkaline Phosphatase 101 (45-117) U/L Albumin 3.7 (3.4-5.0) g/dL Urine 12/18/18 Range/Units 16:00 Urine Color Yellow (Yellw/Straw) Urine Clarity Hazy H (Clear) Urine pH 5.0 (5.0-8.5) Ur Specific Parnell 1.015 (1.002-1.035) Urine Protein Negative (Neg-Trace) mg/dL Urine Glucose (UA) Negative (Negative) mg/dL - Imaging Impressions Chest X-Ray 12/18/18 13:48 CONCLUSION: No acute findings. Mild cardiac enlargement. Aortic endograft present in the abdomen. Abdomen/Pelvis CT 12/18/18 14:52 CONCLUSION: 1. No acute findings on abdomen and pelvic CT. 2. Status post endovascular repair of 5.5 cm abdominal aortic aneurysm with stable type II endoleak compared with November 14, 2018. Physical Exam Vital signs: Vital Signs 12/18/18 13:16 12/18/18 13:18 12/18/18 15:18 Temperature 97.9 F Pulse Rate 96 H 72 Respiratory Rate 20 18 18 Blood Pressure 156/75 H 159/73 H Pulse Oximetry 97 95 12/18/18 18:12 12/18/18 18:20 12/18/18 19:20 Temperature 98.0 F Pulse Rate 78 69 Respiratory Rate 18 18 Blood Pressure 156/70 H 166/74 H Pulse Oximetry 98 98 94 L 12/18/18 21:00 12/18/18 23:30 12/19/18 00:15 Temperature 98.0 F Pulse Rate 70 62 63 Respiratory Rate 17 Blood Pressure 130/59 L Pulse Oximetry 96 12/19/18 04:00 12/19/18 04:10 12/19/18 08:00 Temperature 97.8 F 98.5 F Pulse Rate 69 65 62 Respiratory Rate 17 20 Blood Pressure 133/66 130/67 Pulse Oximetry 96 92 L Intake & Output 12/18/18 12/19/18 12/19/18 18:59 06:59 18:59 Intake Total 1000 / 1000 240 / 240 Balance 1000 / 1000 240 / 240 Weight 65.771 kg 65.8 kg Intake: IV 1000 / 1000 NS Inj 1,000 ML @ Wide Open IV. 1000 / 1000 SIG BOLUS ONE Rx#:[id number] Oral 240 / 240 Other: # Voids 1 Date of Last Bowel Movement 12/17/18 # Bowel Movements 0 - Constitutional no acute distress, obese, cooperative - Routine HEENT Exam Head: Present: normocephalic, atraumatic Eye: Present: EOMI, PERRL ENT: Present: mucous membranes moist - Routine Neck Exam Present: supple, full ROM - Routine Respiratory Exam Present: CTA bilaterally. Absent: accessory muscle use - Routine Cardiovascular Exam Present: RRR, S1, S2, murmur - Routine Abdominal Exam Present: soft, normoactive bowel sounds, tenderness (mild diffuse). Absent: distended, rebound, guarding - Routine Extremities Exam Absent: cyanosis, clubbing, edema - Routine Skin Exam Present: intact, cyanosis, erythema - Routine Neurological Exam Present: alert, oriented X3, CN II-XII intact, moving all extremities. Absent: sensory deficit, motor deficit - Routine Psychiatric Exam Present: normal affect, normal thought process Assessment and Plan - Assessment (1) Mesenteric ischemia Code(s): K55.9 - Vascular disorder of intestine, unspecified Status: Acute Plan: Acute on chronic, inability to take PO IR consulted and already planning angiogram and possible stenting for known celiac/SMA stenosis later this week. Will await their decision on early intervention if needed, and could consult vasc surg if needed also NPO awaiting decision (2) Abdominal pain Code(s): R10.9 - Unspecified abdominal pain Status: Chronic Plan: likely 2/2 above, pain control PRN pending intervention decision (3) Leukocytosis Code(s): D72.829 - Elevated white blood cell count, unspecified Status: Acute Plan: likely 2/2 above, repeat today pending (4) Acidosis, lactic Code(s): E87.2 - Acidosis Status: Resolved Plan: resolved with IVF, likely hypovolemic from poor PO intake mixed with the known mesenteric ischemia. no source of infection (5) Endoleak post endovascular aneurysm repair Code(s): T82.330A - Leakage of aortic (bifurcation) graft (replacement), initial encounter Status: Chronic Plan: Stable, vasc surg aware of patient, will consult for changes if needed. (6) Hypertension Code(s): I10 - Essential (primary) hypertension Status: Acute Plan: Continue home Losartan and amlodipine. Monitor. (7) DM (diabetes mellitus) Code(s): E11.9 - Type 2 diabetes mellitus without complications Status: Chronic Plan: Patient with history of diabetes. low dose SSI, hold home orals for now (8) Nutrition, metabolism, and development symptoms Code(s): R63.8 - Other symptoms and signs concerning food and fluid intake Status: Acute Plan: Fluid: NS at 110 ml/hr. Diet: NPO for now, if waiting until wednesday for intervention may need to change back to clears Electrolytes: Monitor and replete as necessary. (9) Mesenteric ischemia Code(s): K55.9 - Vascular disorder of intestine, unspecified Status: Acute (5) Endoleak post endovascular aneurysm repair Qualifiers: Encounter type: initial encounter Qualified Code(s): T82.330A - Leakage of aortic (bifurcation) graft (replacement), initial encounter
--- NOTE | 2018-12-19 12:22 | P.RAD ---
Post Procedure Progress Note - Pre Procedure Diagnosis (1) Mesenteric ischemia due to arterial insufficiency (2) Abdominal pain - Post Procedure Diagnosis (1) Mesenteric ischemia due to arterial insufficiency - Procedure Information Procedure Date: 12/19/18 Supervising Radiologist: Russ Marreor MD Estimated blood loss (mL): 2 Anesthesia: Local, Conscious Sedation - Plan of Activity Patient to Unit: ROPU Patient Condition: Good Additional Comments: Angio completed documenting highly stenotic Celiac and SMA origins. Successful stent placement across the orgin of both vessels. Excellent patency post procedure. Full dictated report to follow. See PACS Report for procedural detail/treatment.
--- NOTE | 2018-12-19 12:29 | P.RAD ---
Radiology Note Pt. is post angio with SMA and Celiac stent placement. 300mg plavix given as a loading dose. Pt will be started on 75mg plavix p.o Qday in am and will need follow up plavix therapy for at least 6 months and then conversion to ASA 325 PO Qday
[2018-12-19] MEDS: Dextrose 5%/Lactated Ringer's 1,000 ML IV.CONT SCH ×2 (12:30→21:28)
--- NOTE | 2018-12-19 15:31 | ECG ---
Date Performed: 12/18/2018 Time Performed: 15:51:21 PTAGE: 78 years EKG: Sinus rhythm NORMAL ECG Since PREVIOUS TRACING , no significant change noted PREVIOUS TRACIN10/15/2018 22.14.52 DOCTOR: Chad Forde Interpretating Date/Time 12/19/2018 15:28:23
--- NOTE | 2018-12-19 15:55 | P.DIET ---
Nutritional Evaluation Type of nutrition evaluation: initial Nutrition screening: Weight Loss > 10 lbs Screening comments: 12/18/18 WLS Subjective Subjective Comments: Pt stated she lost 10lb in 6 weeks d/t GI issues causing her to have minimal PO intake and no appetite. Objective - Diagnosis abdomen pain, lactic acidosis - Objective Dietitian Reviewed in Medical Record: Current diet, Curent medications, Intake & Output, Labs, Medical history Diet Order: NPO Objective Comments: PMH: CAD, DM, gastroparesis, hypothyroidism, vit B12 deficiency Meds: vit B12, synthroid, MVI, sliding scale insulin Labs: random glucose 196 LBM 12/17/18 Assessment Assessment: Pt currently at nutritional risk r/t reported unplanned wt loss. Pt currently NPO now s/p angio stent placement today. Spoke w/ BRENDAN Cano about pts nutritional status, per RN pt will be on water and ice chips before she could be advanced to clears. RD to recommend Glucerna Shake TID when pt is able to tolerate a full liquid diet. Continue to monitor diet advancement. Labs reviewed , dietitian following. Recommendations: 1. RD to recommend Glucerna Shake TID when pt is able to tolerate a full liquid diet 2. Continue to monitor diet advancement 3. Dietitian following Dietitian to Monitor: Lab values, Glucose level, Intake & Output, Weight change , Diet advancement, Medical course
--- NOTE | 2018-12-19 17:03 | IR ---
EXAM DATE: 12/19/2018 12:58 PM EST AGE/SEX: 78 years / Female INDICATIONS: Patient presents with abdominal pain in need of celiac and superior mesenteric artery a ngiograms with possible stent placement due to stenosis. CLINICAL DATA: This is the patient's initial encounter. Patient reports that signs and symptoms have been present for 1 day and indicates a pain score of 0/10. MEDICAL/SURGICAL HISTORY: . Diabetes, Gastroparesis, HTN, Hypercholesterolemia. . Knee surgery , Carpal tunnel surgery, Tonsillectomy, AAA repair, Hysterectomy. COMPARISON: No prior exams available for comparison. FLUORO TIME (min): 23.5 IMAGE SERIES: 18 RADIATION DOSE: 2,785 mGy CAK ACCESS SITE: Right femoral artery SEDATION TIME (min): 45 CONTRAST (cc): 75 cc Visipaque (iodixanol) MEDICATION(S): 4 mg midazolam (Versed) IV ; 200 mcg fentanyl (Sublimaze) IV ; ; ; Vancomycin within 2 hrs of procedure, Ancef (or alternative) within 1 hr of procedure. DEVICE(S): Right Superior mesenteric artery stent (balloon expanding) 6mm x 17mm visi pro ; Right celiac artery stent (balloon expanding) 7mm x 12mm visi pro ; Right common femoral artery Angio-Seal 6fr Right Superior mesenteric artery [employer] balloon 7.0mm x 20mm 75cm ; ; ; ; . . PROCEDURE : 1. Ultrasound-guided puncture of the access site. 2. Conscious sedation with continuous EKG and Oximetry monitoring. 3. Angiography of the celiac axis 4. Angiography of the SMA origin 5. Angiography of the right common femoral 6. Stenting of the SMA origin. 7. Stenting of the celiac origin. The risks, benefits and alternatives to the procedure were explained and verbal and written consent w as obtained. The site was prepped in sterile fashion. Full sterile technique was used, including ca p, mask, sterile gloves and gown and a large sterile sheet. Hand hygiene and 2% chlorhexidine and/or betadine/alcohol prep was utilized per protocol for cutaneous antisepsis. Sterile gel and sterile p robe cover were utilized for ultrasound guidance. The skin and subcutaneous tissues were infiltrated with local anesthetic solution. With ultrasound and fluoroscopic guidance the right common femoral artery was punctured and a vascula r sheath was placed. A 0.035 angle Glidewire and 4 Yemeni short catheter were advanced up into the abdominal aorta. The ce liac origin was selected. Subsequent angiography demonstrated very high grade stenosis at the origin of the celiac. A 4 Yemeni catheter across the lesion was occlusive. The catheter was withdrawn. The SMA origin was selected. Again the examination demonstrated densely c alcified high-grade stenosis at the origin of the SMA. A 0.035 angle Glidewire was advanced through the ostial stenosis of the SMA and down into the distal branches. A 4 Yemeni single and whole glide catheter was advanced over the Glidewire. This was exchan ged for a Khan wire. A 6 Yemeni Ansell 2 sheath was advanced up to the base of the SMA. A 6 mm x 1.7 cm stent was advanced across the area of stenosis. Position was confirmed. The stent was deployed wi thout difficulty. Subsequent angiographic evaluation demonstrated brisk flow with some continued narr owing at the ostia of the SMA. The 6 mm balloon was removed. This was exchanged for a 7 mm x 2 cm bal loon. Repeat angioplasty of the SMA ostomy was performed. There was no residual stenosis on follow-up angiogram. Attention was then directed towards the celiac origin. This was easily selected with the hook cathete r. A 0.035 angle Glidewire was advanced across the high-grade stenosis. A 4 Yemeni glide catheter was advanced into the distal right hepatic artery. This was exchanged for a Khan wire. A 7 mm x 2 cm ba lloon expandable stent was advanced across the celiac stenosis. This was deployed without difficulty. A follow-up angiogram demonstrated the stent to be in good position. Completion angiogram of both the celiac and the SMA was performed from a flush aortic run. This demon strated brisk flow through the lumen of both vessels. The puncture site was closed with a 6 Yemeni Angio-Seal closure device. Hemostasis was obtained. The patient tolerated the procedure well and there were no complications. Conscious sedation was performed with the prescribed dosages and duration as above in the presence of an independent trained radiology nurse to assist in the monitoring of the patient. EKG and oximetry remained stable throughout the procedure. CONCLUSION: 1. 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 2. Successful angioplasty and stent placement of a high grade stenosis across the origin of the jeni ac. Electronically signed by: Russ Marrero MD Board Certified Radiologist 12/19/2018 5:02 PM ELIF
[2018-12-19 17:25] LABS: Baso % (Auto) 0.4 % (0.0-2.0); Eos # (Auto) 0.2 th/mm3 (0.0-0.4); Hematocrit 36.5 % (35.0-46.0); Lymph # (Auto) 1.8 th/mm3 (1.0-4.8); Mean Corpuscular HGB Conc 32.7 % (32.0-36.0); Mean Corpuscular Hemoglobin 27.3 pg (27.0-34.0); Mean Corpuscular Volume 83.5 fL (80.0-100.0); Mean Platelet Volume 9.5 fL (7.0-11.0); Mono % (Auto) 7.8 % (0.0-8.0); Neut # (Auto) 9.1 th/mm3 (1.8-7.7); Neut % (Auto) 74.8 % (16.0-70.0); Platelet Count 210 th/mm3 (150-450); Red Blood Count 4.38 mil/mm3 (4.00-5.30); Red Cell Distribution Width 14.5 % (11.6-17.2); White Blood Count 12.2 th/mm3 (4.0-11.0)
[2018-12-19 17:47] LABS: Anion Gap 9 meq/L (5-15); Blood Urea Nitrogen 9 mg/dL (7-18); Calcium 8.4 mg/dL (8.5-10.1); Carbon Dioxide 26.6 meq/L (21.0-32.0); Chloride 105 meq/L (98-107); Glomerular Filtration Rate Greater Than 89 mL/min (>89); Glucose,Random 91 mg/dL (74-106); Potassium 3.3 meq/L (3.5-5.1); Sodium 141 meq/L (136-145)
[2018-12-19] MEDS: Timolol 0.5% Drops 5 ML Bottle EACH EYE SCH (21:22)
[2018-12-20 04:59] LABS: Baso % (Auto) 0.4 % (0.0-2.0); Eos # (Auto) 0.4 th/mm3 (0.0-0.4); Hematocrit 35.2 % (35.0-46.0); Hemoglobin 11.8 gm/dL (11.6-15.3); Lymph # (Auto) 1.8 th/mm3 (1.0-4.8); Lymph % (Auto) 20.8 % (9.0-44.0); Mean Corpuscular HGB Conc 33.6 % (32.0-36.0); Mean Corpuscular Hemoglobin 27.5 pg (27.0-34.0); Mean Corpuscular Volume 81.7 fL (80.0-100.0); Mean Platelet Volume 9.1 fL (7.0-11.0); Mono # (Auto) 0.7 th/mm3 (0.0-0.9); Mono % (Auto) 8.1 % (0.0-8.0); Neut # (Auto) 5.9 th/mm3 (1.8-7.7); Neut % (Auto) 66.7 % (16.0-70.0); Platelet Count 207 th/mm3 (150-450); Red Blood Count 4.31 mil/mm3 (4.00-5.30); Red Cell Distribution Width 14.4 % (11.6-17.2); White Blood Count 8.8 th/mm3 (4.0-11.0)
[2018-12-20 05:21] LABS: Anion Gap 6 meq/L (5-15); Blood Urea Nitrogen 8 mg/dL (7-18); Calcium 8.3 mg/dL (8.5-10.1); Carbon Dioxide 31.8 meq/L (21.0-32.0); Chloride 105 meq/L (98-107); Glomerular Filtration Rate Greater Than 89 mL/min (>89); Glucose,Random 107 mg/dL (74-106); Potassium 3.2 meq/L (3.5-5.1); Sodium 143 meq/L (136-145)
[2018-12-20] MEDS: Levothyroxine 112 MCG Tablet PO SCH (05:22)
--- NOTE | 2018-12-20 08:49 | P.PNFP ---
Subjective Interval history: Patient was seen and evaluated this morning. Her abdominal pain has significantly improved. Patient has consumed clear and full liquids since the procedure without an increase in symptoms. Patient however fearful that she will experience pain after every bite she takes. She denies chest pain, shortness of breath, nausea, vomiting, diarrhea and constipation. Patient had a small bowel movement on Wednesday but no stool since admission. All questions were answered. <Julien BurkCruzitoMckayla - 12/20/18 12:28> Results - Labs Result diagrams: 12/20/18 04:40 12/20/18 04:40 <Earnest Feliciano - 12/20/18 21:08> Abnormal lab results 12/20/18 12/20/18 12/20/18 Range/Units 04:40 04:40 07:50 Hale % (Auto) 8.1 H (0.0-8.0) % Potassium 3.2 L (3.5-5.1) meq/L Creatinine 0.46 L (0.50-1.00) mg/dL POC Glucose 116 H (68-110) mg/dl Random Glucose 107 H (74-106) mg/dL Calcium 8.3 L (8.5-10.1) mg/dL 12/20/18 12/20/18 Range/Units 12:16 16:47 Hale % (Auto) (0.0-8.0) % Potassium (3.5-5.1) meq/L Creatinine (0.50-1.00) mg/dL POC Glucose 145 H 115 H (68-110) mg/dl Random Glucose (74-106) mg/dL Calcium (8.5-10.1) mg/dL Short CBC 12/20/18 Range/Units 04:40 WBC 8.8 (4.0-11.0) th/mm3 Hgb 11.8 (11.6-15.3) gm/dL Hct 35.2 (35.0-46.0) % Plt Count 207 (150-450) th/mm3 BMP 12/20/18 04:40 Sodium 143 Potassium 3.2 L Chloride 105 Carbon Dioxide 31.8 BUN 8 Creatinine 0.46 L Calcium 8.3 L <Earnest Feliciano - 12/20/18 21:08> Abnormal lab results 12/19/18 12/19/18 12/19/18 Range/Units 16:39 16:39 19:58 WBC 12.2 H (4.0-11.0) th/mm3 Neut % (Auto) 74.8 H (16.0-70.0) % Hale % (Auto) (0.0-8.0) % Neut # (Auto) 9.1 H (1.8-7.7) th/mm3 Hale # (Auto) 1.0 H (0.0-0.9) th/mm3 Potassium 3.3 L (3.5-5.1) meq/L Creatinine 0.38 L (0.50-1.00) mg/dL POC Glucose 113 H (68-110) mg/dl Random Glucose (74-106) mg/dL Calcium 8.4 L (8.5-10.1) mg/dL 12/20/18 12/20/18 12/20/18 Range/Units 04:40 04:40 07:50 WBC (4.0-11.0) th/mm3 Neut % (Auto) (16.0-70.0) % Hale % (Auto) 8.1 H (0.0-8.0) % Neut # (Auto) (1.8-7.7) th/mm3 Hale # (Auto) (0.0-0.9) th/mm3 Potassium 3.2 L (3.5-5.1) meq/L Creatinine 0.46 L (0.50-1.00) mg/dL POC Glucose 116 H (68-110) mg/dl Random Glucose 107 H (74-106) mg/dL Calcium 8.3 L (8.5-10.1) mg/dL Short CBC 12/19/18 12/20/18 Range/Units 16:39 04:40 WBC 12.2 H 8.8 (4.0-11.0) th/mm3 Hgb 12.0 D 11.8 (11.6-15.3) gm/dL Hct 36.5 35.2 (35.0-46.0) % Plt Count 210 207 (150-450) th/mm3 BMP 12/19/18 12/20/18 16:39 04:40 Sodium 141 143 Potassium 3.3 L 3.2 L Chloride 105 105 Carbon Dioxide 26.6 31.8 BUN 9 8 Creatinine 0.38 L 0.46 L Calcium 8.4 L 8.3 L <Labell Mckayla Burk - 12/20/18 08:49> - Imaging Impressions Celiac/Hepatic Arteriogram 12/19/18 00:00 CONCLUSION: 1. 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 2. 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 <LabelCruzito Batresin - 12/20/18 08:49> Physical Exam Vital signs: Vital Signs 12/19/18 23:56 12/20/18 00:03 12/20/18 05:26 Temperature 97.8 F 97.8 F Pulse Rate 62 56 L 65 Respiratory Rate 17 17 Blood Pressure 125/60 138/62 Pulse Oximetry 95 95 12/20/18 08:00 12/20/18 09:40 12/20/18 12:00 Temperature 97.5 F L 97.5 F L Pulse Rate 60 65 Respiratory Rate 19 20 Blood Pressure 117/57 L 133/63 Pulse Oximetry 92 L 93 L 95 12/20/18 16:00 Temperature 97.9 F Pulse Rate 74 Respiratory Rate 19 Blood Pressure 138/62 Pulse Oximetry 94 L Intake & Output 12/20/18 12/20/18 12/21/18 06:59 18:59 06:59 Intake Total 960 / 960 1000 / 1000 Balance 960 / 960 1000 / 1000 Weight 66.1 kg Intake: IV 1000 / 1000 D5W/LR Inj 1,000 ML @ 100 mls/ 1000 / 1000 hr IV.CONT .Q10H [facility] Rx#: [id number] Oral 960 / 960 Other: # Voids 2 4 Date of Last Bowel Movement 12/18/18 # Bowel Movements 0 <Earnest Feliciano - 12/20/18 21:08> Vital Signs 12/19/18 12:30 12/19/18 12:45 12/19/18 13:00 Temperature 98.3 F Pulse Rate 60 58 L Respiratory Rate 16 18 54 H Blood Pressure 145/68 H 140/55 L 135/64 Pulse Oximetry 91 L 95 96 12/19/18 13:15 12/19/18 13:45 12/19/18 14:15 Temperature Pulse Rate 54 L 63 63 Respiratory Rate 16 18 16 Blood Pressure 151/66 H 138/67 138/67 Pulse Oximetry 94 L 95 94 L 12/19/18 14:45 12/19/18 15:03 12/19/18 16:00 Temperature 98 F Pulse Rate 55 L 62 60 Respiratory Rate 16 17 20 Blood Pressure 131/71 132/72 Pulse Oximetry 96 95 93 L 12/19/18 16:03 12/19/18 17:03 12/19/18 20:21 Temperature Pulse Rate 66 64 65 Respiratory Rate 17 17 Blood Pressure 136/70 135/71 Pulse Oximetry 95 95 12/19/18 20:30 12/19/18 23:56 12/20/18 00:03 Temperature 98.2 F 97.8 F Pulse Rate 64 62 56 L Respiratory Rate 18 17 Blood Pressure 130/59 L 125/60 Pulse Oximetry 92 L 95 12/20/18 05:26 Temperature 97.8 F Pulse Rate 65 Respiratory Rate 17 Blood Pressure 138/62 Pulse Oximetry 95 Intake & Output 12/19/18 12/20/18 12/20/18 18:59 06:59 18:59 Intake Total 960 / 960 Balance 960 / 960 Weight 66.1 kg Intake: Oral 960 / 960 Other: # Voids 2 2 Date of Last Bowel Movement 12/18/18 # Bowel Movements 0 <Label Mckayla Burk - 12/20/18 08:49> Narrative: GENERAL: Pleasant elderly female in no acute distress. SKIN: Warm and dry. HEAD: Atraumatic. Normocephalic. EYES: Pupils equal and round. No scleral icterus. No injection or drainage. ENT: No nasal bleeding or discharge. Mucous membranes pink and moist. CARDIOVASCULAR: Regular rate and rhythm. RESPIRATORY: No accessory muscle use. Clear to auscultation. Breath sounds equal bilaterally. GASTROINTESTINAL: Positive bowel sounds. Abdomen soft, nondistended. Mild tenderness upon palpation over epigastric region. MUSCULOSKELETAL: Extremities without clubbing, cyanosis, or edema. No obvious deformities. NEUROLOGICAL: Awake and alert. No obvious cranial nerve deficits. Normal speech. PSYCHIATRIC: Appropriate mood and affect; insight and judgment normal. 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 IR consulted; s/p angio with SMA and celiac stent placement on 12/19/18. * 300mg Plavix given as a loading dose. * Patient will be started on 75mg Plavix PO daily 12/20/18 and will need follow up Plavix therapy for at least 6 months and then conversion to ASA 325 PO daily. Patient to follow-up with vascular surgery as outpatient. (2) Abdominal pain Code(s): R10.9 - Unspecified abdominal pain Status: Chronic Plan: Improved. Likely secondary to mesenteric ischemia. See Plan above. Advance diet as tolerated. (3) Leukocytosis Code(s): D72.829 - Elevated white blood cell count, unspecified Status: Resolved Plan: Resolved 12/20/18. Likely secondary to mesenteric ischemia. (4) Acidosis, lactic Code(s): E87.2 - Acidosis Status: Resolved Plan: Resolved with IVF, likely hypovolemic from poor PO intake mixed with the known mesenteric ischemia. no source of infection. (5) Endoleak post endovascular aneurysm repair Code(s): T82.330A - Leakage of aortic (bifurcation) graft (replacement), initial encounter Status: Chronic Plan: Stable, vasc surg aware of patient, will consult for changes if needed. (6) Hypertension Code(s): I10 - Essential (primary) hypertension Status: Acute Plan: Continue home Losartan and amlodipine. Monitor. (7) DM (diabetes mellitus) Code(s): E11.9 - Type 2 diabetes mellitus without complications Status: Chronic Plan: Patient with history of diabetes. low dose SSI, hold home orals. (8) Nutrition, metabolism, and development symptoms Code(s): R63.8 - Other symptoms and signs concerning food and fluid intake Status: Acute Plan: Fluid: D5W at 100 ml/hr. Diet: Advance diet as tolerated. Electrolytes: Monitor and replete as necessary. <Mckayla Hutson - 12/20/18 12:16> - Assessment and Plan Discharge Planning: Pending clinical improvement. <Mckayla Hutson - 12/20/18 12:28> - Attending Attestation The exam, history, and the medical decision-making described in the above note were completed with the assistance of the resident physician. I reviewed and agree with the findings presented. I attest that I had a [id number] encounter with the patient on the same day, and personally performed and documented my assessment and findings in the medical record. abd pain much improved, tolerating diet today going home today on plavix now instead of aspirin has f/u with IR, also with vasc surg anyway for AAA <Earnest Feliciano - 12/20/18 21:08> <Mckayla Hutson - Last Filed: 12/20/18 12:16> (5) Endoleak post endovascular aneurysm repair Qualifiers: Encounter type: initial encounter Qualified Code(s): T82.330A - Leakage of aortic (bifurcation) graft (replacement), initial encounter <Earnest Feliciano - Last Filed: 12/20/18 21:08> (5) Endoleak post endovascular aneurysm repair Qualifiers: Encounter type: initial encounter Qualified Code(s): T82.330A - Leakage of aortic (bifurcation) graft (replacement), initial encounter <Labell Mckayla Burk - Last Filed: 12/20/18 12:16> (5) Endoleak post endovascular aneurysm repair Qualifiers: Encounter type: initial encounter Qualified Code(s): T82.330A - Leakage of aortic (bifurcation) graft (replacement), initial encounter <Earnest Feliciano - Last Filed: 12/20/18 21:08> (5) Endoleak post endovascular aneurysm repair Qualifiers: Encounter type: initial encounter Qualified Code(s): T82.330A - Leakage of aortic (bifurcation) graft (replacement), initial encounter
[2018-12-20] MEDS: Senna/Docusate Sodium 8.6/50 MG Tablet PO SCH (10:36)
[2018-12-20] MEDS: Multivitamin/Minerals Therapeutic Tablet PO SCH (10:36)
[2018-12-20] MEDS: amLODIPine 5 MG Tablet PO SCH (10:38)
[2018-12-20] MEDS: Dextrose 5%/Lactated Ringer's 1,000 ML IV.CONT SCH (10:42)
[2018-12-20] MEDS: Insulin NovoLOG Aspart Correctional Sugar Inj SQ SCH ×2 (10:43→12:22)
--- NOTE | 2018-12-20 17:03 | P.RAD ---
Radiology Note 78 Y/O POD #1 S/P SMA and Celiac stent placement. AFVSS Pt. states she is now able to eat without abdominal pain and has no new complaints Plan: Pt. to be discharged tonight and will follow up with the endovascular clinic in 10 days.
[2018-12-20 18:23] VITALS: BP 138/62; PULSE 74; RESP 19; TEMP 97.9; O2SAT 94
== END 2018-12-20 18:46 | disposition home or self-care (01) | DRG 357 ==
LOC: NEPC 13:15 → NEDA 16:59 → N06 18:54
PROVIDERS: ADMIT Family Medicine; ATTEND Family Medicine
CPT/HCPCS: 37236; 37237; 71010; 71045; 74177; 75726; 75774; 76937; 80048; 80053; 81001; 82550; 82948; 82962; 83605; 83690; 83735; 84484; 85025; 85610; 85730; 87040; 93005; 97163; 99145; 99152; 99153; 99285; A4646; C1725; C1760; C1769; C1876; C1887; C1893; C1894; J0690; J1642; J2250; J2270; J2405; J3010; J7030; J7121; Q9949; Q9967